=== PATIENT | female | born 1945 | race Caucasian/White ===

== ENCOUNTER 2023-02-05 13:35 | Outpatient (OUT) | payer MEDICARE, OTHER, SELFPAY ==
[2023-02-05 14:09] LABS: Basophils Absolute Auto 0.1 10^3/uL (0.0-0.1); Basophils Percent Auto 0.5 % (0.2-2.0); Eosinophils Absolute Auto 0.2 10^3/uL (0.0-0.7); Eosinophils Percent Auto 2.2 % (0.9-7.0); Hematocrit 38.4 % (36.0-48.0); Hemoglobin 12.9 g/dL (12.0-16.0); Immature Granulocytes Abs Auto 0.04 10^3/uL (0.00-0.03); Immature Granulocytes Pct Auto 0.4 % (0.0-0.5); Lymphocytes Absolute Auto 1.6 10^3/uL (1.2-3.8); Lymphocytes Percent Auto 14.2 % (20.5-60.0); Mean Corpuscular HGB Conc 33.6 g/dL (29.9-35.2); Mean Corpuscular Hemoglobin 29.1 pg (26.7-34.0); Mean Corpuscular Volume 86.7 fL (81.0-99.0); Mean Platelet Volume 10.4 fL (9.5-13.5); Monocytes Absolute Auto 0.5 10^3/uL (0.3-0.8); Monocytes Percent Auto 4.7 % (1.7-12.0); Neutrophils Absolute Auto 8.6 10^3/uL (1.4-6.5); Platelet Count 245 10^3/uL (150-450); Red Blood Count 4.43 10^6/uL (4.20-5.40); Red Cell Distribution Width 14.4 % (11.0-15.0)
[2023-02-05 14:47] LABS: Alanine Aminotransferase 33 U/L (14-59); Albumin Level 3.9 g/dL (3.4-5.0); Alkaline Phosphatase 115 U/L (46-116); Anion Gap 11.5; Aspartate Amino Transferase 18 U/L (15-37); BUN Creatinine Ratio 19.3; Bilirubin Total 0.5 mg/dL (0.2-1.0); Calcium 12.6 mg/dL (8.5-10.1); Carbon Dioxide 31.3 mmol/L (21.0-32.0); Chloride 96 mmol/L (98-107); Estimated GFR (African America 38 (>=60); Estimated GFR (Non-African Ame 31 (>=60); Globulin 4.1 g/dL; Glucose 144 mg/dL (74-106); Potassium 3.8 mmol/L (3.5-5.1); Sodium 135 mmol/L (136-145)
[2023-02-05 14:51] LABS: Estimated Average Glucose 166 mg/dL; Glycohemoglobin A1C 7.4 % (4.5-6.2)
[2023-02-06 11:10] LABS: PTH, Intact 9 pg/mL (15-65)
== END 2023-02-05 13:36 | disposition home or self-care (01) ==
LOC: LAB 13:40
PROVIDERS: PCP Internal Medicine; Visit Provider Internal Medicine
DX: E11.22 Type 2 diabetes mellitus with diabetic chronic kidney disease (principal); E83.52 Hypercalcemia; D72.829 Elevated white blood cell count, unspecified; N18.9 Chronic kidney disease, unspecified
CPT/HCPCS: 36415; 80053; 83036; 83970; 85025

== ENCOUNTER 2023-06-20 13:20 | Outpatient (OUT) | payer MEDICARE, OTHER, SELFPAY ==
[2023-06-20 13:56] LABS: Basophils Absolute Auto 0.1 10^3/uL (0.0-0.1); Basophils Percent Auto 0.6 % (0.2-2.0); Eosinophils Absolute Auto 0.2 10^3/uL (0.0-0.7); Eosinophils Percent Auto 2.7 % (0.9-7.0); Hematocrit 40.5 % (36.0-48.0); Hemoglobin 12.6 g/dL (12.0-16.0); Immature Granulocytes Abs Auto 0.02 10^3/uL (0.00-0.03); Immature Granulocytes Pct Auto 0.2 % (0.0-0.5); Lymphocytes Absolute Auto 1.6 10^3/uL (1.2-3.8); Lymphocytes Percent Auto 18.1 % (20.5-60.0); Mean Corpuscular HGB Conc 31.1 g/dL (29.9-35.2); Mean Corpuscular Hemoglobin 28.2 pg (26.7-34.0); Mean Corpuscular Volume 90.6 fL (81.0-99.0); Mean Platelet Volume 10.4 fL (9.5-13.5); Monocytes Absolute Auto 0.5 10^3/uL (0.3-0.8); Monocytes Percent Auto 5.5 % (1.7-12.0); Neutrophils Absolute Auto 6.5 10^3/uL (1.4-6.5); Neutrophils Percent Auto 72.9 % (43.0-75.0); Platelet Count 262 10^3/uL (150-450); Red Blood Count 4.47 10^6/uL (4.20-5.40); Red Cell Distribution Width 14.4 % (11.0-15.0); White Blood Count 8.9 10^3/uL (4.0-11.0)
[2023-06-20 14:08] LABS: Estimated Average Glucose 169 mg/dL; Glycohemoglobin A1C 7.5 % (4.5-6.2)
[2023-06-20 14:09] LABS: Alanine Aminotransferase 29 U/L (14-59); Albumin Globulin Ratio 0.8; Albumin Level 3.5 g/dL (3.4-5.0); Alkaline Phosphatase 124 U/L (46-116); Anion Gap 14.3; Aspartate Amino Transferase 16 U/L (15-37); BUN Creatinine Ratio 17.2; Bilirubin Total 0.5 mg/dL (0.2-1.0); Calcium 9.7 mg/dL (8.5-10.1); Carbon Dioxide 31.1 mmol/L (21.0-32.0); Chloride 101 mmol/L (98-107); Chol HDL Ratio 3.2; Cholesterol 155 mg/dL (<=200); Estimated GFR (African America 40 (>=60); Estimated GFR (Non-African Ame 33 (>=60); Globulin 4.2 g/dL; Glucose 108 mg/dL (74-106); HDL Cholesterol 48 mg/dL (40-60); Potassium 4.4 mmol/L (3.5-5.1); Sodium 142 mmol/L (136-145); Total Protein 7.7 g/dL (6.4-8.2); Triglycerides 173 mg/dL (<=150); VLDL CHOLESTEROL 34.6 mg/dL
[2023-06-20 14:21] LABS: Creatinine Urine Random 37.25 mg/dL (20.00-300.00)
== END 2023-06-20 13:21 | disposition home or self-care (01) ==
PROVIDERS: PCP Internal Medicine; Visit Provider Internal Medicine
DX: E11.22 Type 2 diabetes mellitus with diabetic chronic kidney disease (principal); N18.31 Chronic kidney disease, stage 3a; Z79.4 Long term (current) use of insulin; E78.49 Other hyperlipidemia; E03.8 Other specified hypothyroidism
CPT/HCPCS: 36415; 80053; 80061; 82570; 83036; 84443; 85025

== ENCOUNTER 2023-07-10 08:51 | Outpatient (OUT) | payer MEDICARE, OTHER, SELFPAY ==
--- NOTE | 2023-07-10 08:54 | MM_ITS ---
Patient Name: RICARDO GRIJALVA MR#: [id number] : 1945 Exam Date: 07/10/2023 Ordering Doctor: Shaikh Anni Oliveira . RADIOLOGY REPORT PROCEDURE: MM TOMOSYNTHESIS SCREENING BI COMPARISON: MG MAMM SCREEN MIRTA W CAD, 04/11/2020. MG MAMM SCREEN 3D MIRTA CAD, 05/04/2022. INDICATIONS: screening Calculator Name NCI Breast Cancer Risk Assessment Tool 5 Year Breast Cancer Risk 2.40% Lifetime Breast Cancer Risk 4.60% Personal Breast Cancer No Personal Ovarian Cancer No Treatments None Family Cancers None LOCATION: [facility] BREAST COMPOSITION: Scattered areas fibroglandular density. FINDINGS: DIAGNOSTIC CATEGORY 1--NEGATIVE. NO CHANGE FROM COMPARISON ASSESSMENT. Scattered benign-appearing calcifications are present. Scattered benign-appearing lymph nodes are present. . RIGHT BREAST: No significant suspicious finding. Irregular density in the right axillary tail is a skin lesion/small period LEFT BREAST: No significant suspicious finding. RECOMMENDATIONS: ROUTINE MAMMOGRAM AND CLINICAL EVALUATION IN 12 MONTHS. PLEASE NOTE: A NORMAL MAMMOGRAM DOES NOT EXCLUDE THE POSSIBILITY OF BREAST CANCER. A CLINICALLY SUSPICIOUS PALPABLE LUMP SHOULD BE BIOPSIED. Dictated by: Cameron Garcia MD on 07/10/2023 at 10:37 Approved by: Cameron Garcia MD on 07/10/2023 at 10:39
== END 2023-07-10 08:52 | disposition home or self-care (01) ==
LOC: MAMMO 08:51
PROVIDERS: PCP Internal Medicine; Visit Provider Internal Medicine
DX: Z12.31 Encounter for screening mammogram for malignant neoplasm of breast (principal)
CPT/HCPCS: 77063; 77067

== ENCOUNTER 2023-10-17 12:58 | Outpatient (OUT) | payer MEDICARE, OTHER, SELFPAY ==
--- OUTSIDE RECORDS SUMMARY | 2023-10-17 13:20 | XMS_ITS | CCD ---
Author Organization [facility] Care Team Providers Care Correction Officer Name Role Phone FAWWAD, SRIVASTAVA H Admitting Unavailable FAWWAD, SRIVASTAVA H Attending Unavailable FAWWAD, SRIVASTAVA H Primary Care Unavailable FAWWAD, SRIVASTAVA H Consulting Unavailable FAWWAD, SRIVASTAVA H Admitting Unavailable FAWWAD, SRIVASTAVA H Attending Unavailable FAWWAD, SRIVASTAVA H Primary Care Unavailable FAWWAD, SRIVASTAVA H Consulting Unavailable FAWWAD, SRIVASTAVA H Admitting Unavailable FAWWAD, SRIVASTAVA H Attending Unavailable FAWWAD, SRIVASTAVA H Primary Care Unavailable DR RENO MUHAMMAD V Consulting Unavailable FAWWAD, SRIVASTAVA H Consulting Unavailable FAWWAD, SRIVASTAVA H Admitting Unavailable FAWWAD, SRIVASTAVA H Attending Unavailable FAWWAD, SRIVASTAVA H Primary Care Unavailable FAWWAD, SRIVASTAVA H Consulting Unavailable FAWWAD, SRIVASTAVA Attending Unavailable FAWWAD, SRIVASTAVA Attending Unavailable Problems Active Problems Problem Classification Problem Date Documented Da te Episodic/Chronic Diabetes mellitus with complications (4 sources) Type 2 diabetes mellitus with diabetic chronic kidney disease; Translations: [TYPE 2 DM W/DIABETIC CKD] Onset: 11-05-2022 Chronic Diabetes mellitus without complication (5 sources) Type 2 diabetes mellitus without complications; Translations: [TYPE 2 DM WITHOUT COMPLICATIONS] Onset: 01-01-2022 Chronic Disorders of lipid metabolism (5 sources) Hyperlipidemia, unspecified; Translations: [HYPERLIPIDEMIA UNSPECIFIED] Onset: 05-04-2022 Chronic Essential hypertension (1 source) Essential (primary) hypertension; Translations: [ESSENTIAL PRIMARY HYPERTENSION] Onset: 05-06-2022 Chronic Hypertension with complications and secondary hypertension (1 source) Hypertensive chronic kidney disease with stage 1 through stage 4 chronic kidney disease, or unspecified chronic kidney disease; Translations: [HTN CKD W/STAGE 1-4 CKD/UNS CKD] Onset: 11-09-2022 Chronic Thyroid disorders (1 source) Hypothyroidism, unspecified; Translations: [HYPOTHYROIDISM UNSPECIFIED] Onset: 11-09-2022 Chronic Unclassified (1 source) CHRN KIDNEY DISEASE STG 3 UNSP; Translations: [CHRN KIDNEY DISEASE STG 3 UNSP] Onset: 11-09-2022 Past or Other Problems Problem Classification Problem Date Documented Da te Episodic/Chronic Other screening for suspected conditions (not mental disorders or infectious disease) (1 source) Encounter for screening mammogram for malignant neoplasm of breast; Translations: [ENC SCR MAMMO MALIG NEOPLASM BREAST] Onset: 05-06-2022 Episodic Results Test Name Value Interpretation Reference Range Facil ity CBC AUTO DIFFon 11-05-2022 BASO # 0.1 103/ul Normal 0.0-0.1 [facility] Comment on above: Performed By: #### A 1C #### [facility] [address] [place] [address] Dr. Ed Carbajal Basophils/100 WBC (Bld) 0.7 % Normal 0.2-2.0 [facility] Comment on above: Performed By: #### A 1C #### [facility] [address] [address] [address] Ed Carbajal EO # 0.1 103/ul Normal 0.0-0.7 [facility] Comment on above: Performed By: #### A 1C #### [facility] [address] [address] [address] Ed Carbajal Eosinophils/100 WBC (Bld) 1.1 % Normal 0.9-7.0 [facility] Comment on above: Performed By: #### A 1C #### [facility] [address] [address] [address] Ed Carbajal Erythrocyte distribution width (RBC) [Ratio] 14.6 % Normal 11.0-15.0 [facility] Comment on above: Performed By: #### A 1C #### [facility] [address] [address] [address] Ed Carbajal Hematocrit (Bld) [Volume fraction] 39.4 % Normal 36.0-48.0 [facility] Comment on above: Performed By: #### A 1C #### [facility] [address] [address] [address] Ed Carbajal Hemoglobin (Bld) [Mass/Vol] 12.7 g/dL Normal 12.0-16.0 [facility] Comment on above: Performed By: #### A 1C #### [facility] [address] [address] [address] Ed Carbajal IG # 0.07 10e3/ul Critically high 0.00-0.03 [facility] Comment on above: Performed By: #### A 1C #### [facility] [address] [address] [address] Ed Carbajal IG % 0.6 % Critically high 0.0-0.5 [facility] Comment on above: Performed By: #### A 1C #### [facility] [address] [address] [address] Ed Carbajal LYMPH # 1.8 103/ul Normal 1.2-3.8 [facility] Comment on above: Performed By: #### A 1C #### [facility] [address] [address] [address] Ed Carbajal Lymphocytes/100 WBC (Bld) 14.4 % Critically low 20.5-60.0 [facility] Comment on above: Performed By: #### A 1C #### [facility] [address] [address] [address] Ed Carbajal MANUAL DIFF REQ NO Normal [facility] Comment on above: Performed By: #### A 1C #### [facility] [address] [address] [address] Ed Carbajal MCH (RBC) [Entitic mass] 29.0 pg Normal 26.7-34.0 [facility] Comment on above: Performed By: #### A 1C #### [facility] [address] [address] [address] Ed Carbajal MCHC (RBC) [Mass/Vol] 32.2 g/dL Normal 29.9-35.2 [facility] Comment on above: Performed By: #### A 1C #### [facility] [address] [address] [address] Ed Carbajal MCV (RBC) [Entitic vol] 90.0 fL Normal 81.0-99.0 [facility] Comment on above: Performed By: #### A 1C #### [facility] [address] [address] [address] Ed Carbajal MONO # 0.6 103/ul Normal 0.3-0.8 [facility] Comment on above: Performed By: #### A 1C #### [facility] [address] [address] [address] Ed Carbajal Monocytes/100 WBC (Bld) 4.7 % Normal 1.7-12.0 [facility] Comment on above: Performed By: #### A 1C #### [facility] [address] [place] [address] Dr. Ed Carbajal NEUT # 9.6 103/ul Critically high 1.4-6.5 [facility] Comment on above: Performed By: #### A 1C #### [facility] [address] [place] [address] Dr. Ed Carbajal Neutrophils/100 WBC (Bld) 78.5 % Critically high 43.0-75.0 [facility] Comment on above: Performed By: #### A 1C #### [facility] [address] [place] [address] Dr. Ed Carbajal Platelet mean volume (Bld) [Entitic vol] 10.3 fL Normal 9.5-13.5 [facility] Comment on above: Performed By: #### A 1C #### [facility] [address] [place] [address] Dr. Ed Carbajal PLT 264 103/ul Normal 150-450 [facility] Comment on above: Performed By: #### A 1C #### [facility] [address] [address] [address] Ed Carbajal RBC 4.38 106/ul Normal 4.20-5.40 [facility] Comment on above: Performed By: #### A 1C #### [facility] [address] [address] [address] Ed Carbajal WBC 12.2 103/ul Critically high 4.0-11.0 [facility] Comment on above: Performed By: #### A 1C #### [facility] [address] [place] [address] Dr. Ed Carbajal GLYCOHEMOGLOBIN A1Con 2022 ADA RECOMMENDATION SEE BELOW Normal [facility] Comment on above: Result Comment: ADA RECOMMENDED LIMIT 4.0 - 6.0 ADA THERAPEUTIC TARGET < 7.0 ACTION SUGGESTED > 7.0 Performed By: #### A 1C #### [facility] [address] [address] [address] Ed Carbajal Glucose [Mass/Vol] 186 mg/dL Normal [facility] Comment on above: Performed By: #### A 1C #### [facility] [address] [place] [address] Dr. Ed Carbajal HbA1c (Bld) [Mass fraction] 8.1 % Critically high 4.5-6.2 [facility] Comment on above: Performed By: #### A 1C #### [facility] [address] [place] [address] Dr. Ed Carbajal LIPID PROFILEon 11-05-2022 CHOL-HDL RATIO NORM SEE BELOW Normal [facility] Comment on above: Result Comment: 3.3 - 4.4 LOW RISK 4.4 - 7.1 AVERAGE RISK 7.1 - 11.0 MODERATE RISK >11.0 HIGH RISK Performed By: #### A 1C #### [facility] [address] [place] [address] Dr. Ed Carbajal Cholesterol [Mass/Vol] 186 mg/dL Normal <=200 [facility] Comment on above: Performed By: #### A 1C #### [facility] [address] [place] [address] Dr. Ed Carbajal Cholesterol in HDL [Mass/Vol] 45 mg/dL Normal 40-60 [facility] Comment on above: Performed By: #### A 1C #### [facility] [address] [place] [address] Dr. Ed Carbajal Cholesterol in LDL [Mass/Vol] 95.6 mg/dL Normal [facility] Comment on above: Performed By: #### A 1C #### [facility] [address] [address] [address] Ed Carbajal Cholesterol.total/Cho lesterol in HDL [Mass ratio] 4.1 {ratio} Normal [facility] Comment on above: Performed By: #### A 1C #### [facility] [address] [address] [address] Ed Carbajal HDL NORMAL > or = 60 mg/dl - LOW CARDIOVASCULAR RISK <40 mg/dl - HIGH CARDIOVASCULAR RISK Normal [facility] Comment on above: Performed By: #### A 1C #### [facility] [address] [address] [address] Ed Carbajal LDL CALC NORMAL SEE BELOW Normal [facility] Comment on above: Result Comment: <100 mg/dl OPTIMAL 100 - 129 mg/dl NEAR OR ABOVE OPTIMAL 130 - 159 mg/dl BORDERLINE HIGH 160 - 189 mg/dl HIGH >190 mg/dl VERY HIGH Performed By: #### A 1C #### [facility] [address] [address] [address] Ed Carbajal Triglyceride [Mass/Vol] 227 mg/dL Critically high <=150 [facility] Comment on above: Performed By: #### A 1C #### [facility] [address] [address] [address] Ed Carbajal VLDL CALC 45.4 mg/dL Normal [facility] Comment on above: Performed By: #### A 1C #### [facility] [address] [address] [address] Ed Carbajal PROF 14(COMP METB)on 023 Albumin [Mass/Vol] 3.7 g/dL Normal 3.4-5.[address] [facility] Comment on above: Performed By: #### A 1C #### [facility] [address] [address] [address] Ed Carbajal Albumin/Globulin [Mass ratio] 0.8 {ratio} Normal [facility] Comment on above: Performed By: #### A 1C #### [facility] [address] [address] [address] Ed Carbajal ALP [Catalytic activity/Vol] 126 U/L Critically high 46-116 [facility] Comment on above: Performed By: #### A 1C #### [facility] [address] [place] [address] Dr. Ed Carbajal ALT [Catalytic activity/Vol] 32 U/L Normal 14-59 [facility] Comment on above: Performed By: #### A 1C #### [facility] [address] [place] [address] Dr. Ed Carbajal Anion gap [Moles/Vol] 15.5 mmol/L Normal [facility] Comment on above: Performed By: #### A 1C #### [facility] [address] [place] [address] Dr. Ed Carbajal AST [Catalytic activity/Vol] 17 U/L Normal 15-37 [facility] Comment on above: Performed By: #### A 1C #### [facility] [address] [place] [address] Dr. Ed Carbajal Bilirubin [Mass/Vol] 0.4 mg/dL Normal 0.2-1.0 [facility] Comment on above: Performed By: #### A 1C #### [facility] [address] [place] [address] Dr. Ed Carbajal Calcium [Mass/Vol] 11.5 mg/dL Critically high 8.5-10.1 [facility] Comment on above: Performed By: #### A 1C #### [facility] [address] [place] [address] Dr. Ed Carbajal Chloride [Moles/Vol] 97 mmol/L Critically low 98-107 [facility] Comment on above: Performed By: #### A 1C #### [facility] [address] [place] [address] Dr. Ed Carbajal CO2 [Moles/Vol] 31.2 mmol/L Normal 21.0-32.0 [facility] Comment on above: Performed By: #### A 1C #### [facility] [address] [place] [address] Dr. Ed Carbajal Creatinine [Mass/Vol] 1.69 mg/dL Critically high 0.55-1.02 [facility] Comment on above: Performed By: #### A 1C #### [facility] [address] [address] [address] Ed Carbajal EGFR-AF BURMESE 36 mL/min/1.73m2 Critically low >=60 [facility] Comment on above: Performed By: #### A 1C #### [facility] [address] [address] [address] Ed Carbajal EGFR-NON AF BURMESE 29 mL/min/1.73m2 Critically low >=60 [facility] Comment on above: Performed By: #### A 1C #### [facility] [address] [place] [address] Dr. Ed Carbajal Globulin (S) [Mass/Vol] 4.4 g/dL Normal [facility] Comment on above: Performed By: #### A 1C #### [facility] [address] [place] [address] Dr. Ed Carbajal Glucose [Mass/Vol] 210 mg/dL Critically high 74-106 [facility] Comment on above: Performed By: #### A 1C #### [facility] [address] [place] [address] Dr. Ed Carbajal Potassium [Moles/Vol] 3.7 mmol/L Normal 3.5-5.1 [facility] Comment on above: Performed By: #### A 1C #### [facility] [address] [address] [address] Ed Carbajal Protein [Mass/Vol] 8.1 g/dL Normal 6.4-8.[address] [facility] Comment on above: Performed By: #### A 1C #### [facility] [address] [place] [address] Dr. Ed Carbajal Sodium [Moles/Vol] 140 mmol/L Normal 136-145 [facility] Comment on above: Performed By: #### A 1C #### [facility] [address] [place] [address] Dr. Ed Carbajal Urea nitrogen [Mass/Vol] 36.0 mg/dL Critically high 7.0-18.0 [facility] Comment on above: Performed By: #### A 1C #### [facility] [address] [place] [address] Dr. Ed Carbajal Urea nitrogen/Creatinine [Mass ratio] 21.3 mg/mg Normal [facility] Comment on above: Performed By: #### A 1C #### [facility] [address] [place] [address] Dr. Ed Carbajal TSHon 11-05-2022 TSH 2.517 uIU/mL Normal 0.358-3.740 [facility] Comment on above: Performed By: #### A 1C #### [facility] [address] [place] [address] Dr. Ed Carbajal URINE T PROTEIN CREAT RATIOo n 11-05-2022 Protein (U) [Mass/Vol] 12.8 mg/dL Critically high <=12.0 [facility] Comment on above: Performed By: #### A 1C #### [facility] [address] [place] [address] Dr. Ed Carbajal UR PROT CREAT RAT 0.35 Normal [facility] Comment on above: Performed By: #### A 1C #### [facility] [address] [place] [address] Dr. Ed Carbajal URINE CREAT 36.93 mg/dL Normal 20.00-300.00 [facility] Comment on above: Performed By: #### A 1C #### [facility] [address] [place] [address] Dr. Ed Carbajal GLYCOHEMOGLOBIN A1Con 2022 ADA RECOMMENDATION SEE BELOW Normal [facility] Comment on above: Result Comment: ADA RECOMMENDED LIMIT 4.0 - 6.0 ADA THERAPEUTIC TARGET < 7.0 ACTION SUGGESTED > 7.0 Performed By: #### A 1C #### [facility] [address] [place] [address] Dr. Ed Carbajal Glucose [Mass/Vol] 154 mg/dL Normal [facility] Comment on above: Performed By: #### A 1C #### [facility] [address] [address] [address] Ed Carbajal HbA1c (Bld) [Mass fraction] 7.0 % Critically high 4.5-6.2 [facility] Comment on above: Performed By: #### A 1C #### [facility] [address] [address] [address] Ed Carbajal PROF CHEM 8 (BAS METB)on Anion gap [Moles/Vol] 13.8 mmol/L Normal [facility] Comment on above: Performed By: #### A 1C #### [facility] [address] [address] [address] Ed Carbajal Calcium [Mass/Vol] 10.4 mg/dL Critically high 8.5-10.1 [facility] Comment on above: Performed By: #### A 1C #### [facility] [address] [address] [address] Ed Carbajal Chloride [Moles/Vol] 97 mmol/L Critically low 98-107 [facility] Comment on above: Performed By: #### A 1C #### [facility] [address] [address] [address] Ed Carbajal CO2 [Moles/Vol] 28.0 mmol/L Normal 21.0-32.0 [facility] Comment on above: Performed By: #### A 1C #### [facility] [address] [address] [address] Ed Carbajal Creatinine [Mass/Vol] 1.32 mg/dL Critically high 0.55-1.02 [facility] Comment on above: Performed By: #### A 1C #### [facility] [address] [address] [address] Ed Carbajal EGFR-AF BURMESE 47 mL/min/1.73m2 Critically low >=60 [facility] Comment on above: Performed By: #### A 1C #### [facility] [address] [address] [address] Ed Carbajal EGFR-NON AF BURMESE 39 mL/min/1.73m2 Critically low >=60 [facility] Comment on above: Performed By: #### A 1C #### [facility] [address] [address] [address] Ed Carbajal Glucose [Mass/Vol] 184 mg/dL Critically high 74-106 [facility] Comment on above: Performed By: #### A 1C #### [facility] [address] [address] [address] Ed Carbajal Potassium [Moles/Vol] 3.8 mmol/L Normal 3.5-5.1 [facility] Comment on above: Performed By: #### A 1C #### [facility] [address] [address] [address] Ed Carbajal Sodium [Moles/Vol] 135 mmol/L Critically low 136-145 [facility] Comment on above: Performed By: #### A 1C #### [facility] [address] [place] [address] Dr. Ed Carbajal Urea nitrogen [Mass/Vol] 27.0 mg/dL Critically high 7.0-18.0 [facility] Comment on above: Performed By: #### A 1C #### [facility] [address] [address] [address] Ed Carbajal Urea nitrogen/Creatinine [Mass ratio] 20.5 mg/mg Normal [facility] Comment on above: Performed By: #### A 1C #### [facility] [address] [place] [address] Dr. Ed Carbajal URINE T PROTEIN CREAT RATIOo n 08-07-2022 Protein (U) [Mass/Vol] 5.5 mg/dL Normal <=12.0 [facility] Comment on above: Performed By: #### U RTPCR #### [facility] [address] [address] [address] Ed Carbajal UR PROT CREAT RAT 0.32 Normal [facility] Comment on above: Performed By: #### U RTPCR #### [facility] [address] [address] [address] Ed Carbajal URINE CREAT 17.25 mg/dL Critically low 20.00-300.00 [facility] Comment on above: Performed By: #### U RTPCR #### [facility] [address] [address] [address] Ed Carbajal CBC AUTO DIFFon 05-04-2022 BASO # 0.1 103/ul Normal 0.0-0.1 [facility] Comment on above: Performed By: #### C BC #### [facility] [address] [address] [address] Ed Carbajal Basophils/100 WBC (Bld) 0.9 % Normal 0.2-2.0 [facility] Comment on above: Performed By: #### C BC #### [facility] [address] [place] [address] Dr. Ed Carbajal EO # 0.4 103/ul Normal 0.0-0.7 [facility] Comment on above: Performed By: #### C BC #### [facility] [address] [place] [address] Dr. Ed Carbajal Eosinophils/100 WBC (Bld) 3.7 % Normal 0.9-7.0 [facility] Comment on above: Performed By: #### C BC #### [facility] [address] [place] [address] Dr. Ed Carbajal Erythrocyte distribution width (RBC) [Ratio] 14.6 % Normal 11.0-15.0 [facility] Comment on above: Performed By: #### C BC #### [facility] [address] [place] [address] Dr. Ed Carbajal Hematocrit (Bld) [Volume fraction] 40.1 % Normal 36.0-48.0 [facility] Comment on above: Performed By: #### C BC #### [facility] [address] [place] [address] Dr. Ed Carbajal Hemoglobin (Bld) [Mass/Vol] 12.8 g/dL Normal 12.0-16.0 [facility] Comment on above: Performed By: #### C BC #### [facility] [address] [place] [address] Dr. Ed Carbajal IG # 0.03 10e3/ul Normal 0.00-0.03 [facility] Comment on above: Performed By: #### C BC #### [facility] [address] [place] [address] Dr. Ed Carbajal IG % 0.3 % Normal 0.0-0.5 [facility] Comment on above: Performed By: #### C BC #### [facility] [address] [place] [address] Dr. Ed Carbajal LYMPH # 1.8 103/ul Normal 1.2-3.8 [facility] Comment on above: Performed By: #### C BC #### [facility] [address] [place] [address] Dr. Ed Carbajal Lymphocytes/100 WBC (Bld) 18.0 % Critically low 20.5-60.0 [facility] Comment on above: Performed By: #### C BC #### [facility] [address] [place] [address] Dr. Ed Carbajal MANUAL DIFF REQ NO Normal [facility] Comment on above: Performed By: #### C BC #### [facility] [address] [place] [address] Dr. Ed Carbajal MCH (RBC) [Entitic mass] 28.0 pg Normal 26.7-34.0 [facility] Comment on above: Performed By: #### C BC #### [facility] [address] [place] [address] Dr. Ed Carbajal MCHC (RBC) [Mass/Vol] 31.9 g/dL Normal 29.9-35.2 [facility] Comment on above: Performed By: #### C BC #### [facility] [address] [place] [address] Dr. Ed Carbajal MCV (RBC) [Entitic vol] 87.7 fL Normal 81.0-99.0 [facility] Comment on above: Performed By: #### C BC #### [facility] [address] [place] [address] Dr. Ed Carbajal MONO # 0.6 103/ul Normal 0.3-0.8 [facility] Comment on above: Performed By: #### C BC #### [facility] [address] [address] [address] Ed Carbajal Monocytes/100 WBC (Bld) 6.0 % Normal 1.7-12.0 [facility] Comment on above: Performed By: #### C BC #### [facility] [address] [address] [address] Ed Carbajal NEUT # 7.0 103/ul Critically high 1.4-6.5 [facility] Comment on above: Performed By: #### C BC #### [facility] [address] [place] [address] Dr. Ed Carbajal Neutrophils/100 WBC (Bld) 71.1 % Normal 43.0-75.0 [facility] Comment on above: Performed By: #### C BC #### [facility] [address] [place] [address] Dr. Ed Carbajal Platelet mean volume (Bld) [Entitic vol] 10.8 fL Normal 9.5-13.5 [facility] Comment on above: Performed By: #### C BC #### [facility] [address] [place] [address] Dr. Ed Carbajal PLT 272 103/ul Normal 150-450 [facility] Comment on above: Performed By: #### C BC #### [facility] [address] [place] [address] Dr. Ed Carbajal RBC 4.57 106/ul Normal 4.20-5.40 [facility] Comment on above: Performed By: #### C BC #### [facility] [address] [place] [address] Dr. Ed Carbajal WBC 9.8 103/ul Normal 4.0-11.0 [facility] Comment on above: Performed By: #### C BC #### [facility] [address] [place] [address] Dr. Ed Carbajal GLYCOHEMOGLOBIN A1Con 2021 ADA RECOMMENDATION SEE BELOW Normal [facility] Comment on above: Result Comment: ADA RECOMMENDED LIMIT 4.0 - 6.0 ADA THERAPEUTIC TARGET < 7.0 ACTION SUGGESTED > 7.0 Performed By: #### A 1C #### [facility] [address] [address] [address] Ed Carbajal Glucose [Mass/Vol] 154 mg/dL Normal [facility] Comment on above: Performed By: #### A 1C #### [facility] [address] [address] [address] Ed Carbajal HbA1c (Bld) [Mass fraction] 7.0 % Critically high 4.5-6.2 [facility] Comment on above: Performed By: #### A 1C #### [facility] [address] [address] [address] Ed Carbajal LIPID PROFILEon 05-04-2022 CHOL-HDL RATIO NORM SEE BELOW Normal [facility] Comment on above: Result Comment: 3.3 - 4.4 LOW RISK 4.4 - 7.1 AVERAGE RISK 7.1 - 11.0 MODERATE RISK >11.0 HIGH RISK Performed By: #### C MP, TSH, LIPID #### [facility] [address] [place] [address] Dr. Ed Carbajal Cholesterol [Mass/Vol] 143 mg/dL Normal <=200 [facility] Comment on above: Performed By: #### C MP, TSH, LIPID #### [facility] [address] [place] [address] Dr. Ed Carbajal Cholesterol in HDL [Mass/Vol] 45 mg/dL Normal 40-60 [facility] Comment on above: Performed By: #### C MP, TSH, LIPID #### [facility] [address] [place] [address] Dr. Ed Carbajal Cholesterol in LDL [Mass/Vol] 65.4 mg/dL Normal [facility] Comment on above: Performed By: #### C MP, TSH, LIPID #### [facility] [address] [place] [address] Dr. Ed Carbajal Cholesterol.total/Cho lesterol in HDL [Mass ratio] 3.2 {ratio} Normal [facility] Comment on above: Performed By: #### C MP, TSH, LIPID #### [facility] [address] [address] [address] Ed Carbajal HDL NORMAL > or = 60 mg/dl - LOW CARDIOVASCULAR RISK <40 mg/dl - HIGH CARDIOVASCULAR RISK Normal [facility] Comment on above: Performed By: #### C MP, TSH, LIPID #### [facility] [address] [place], [place] [address] Dr. Ed Carbajal LDL CALC NORMAL SEE BELOW Normal [facility] Comment on above: Result Comment: <100 mg/dl OPTIMAL 100 - 129 mg/dl NEAR OR ABOVE OPTIMAL 130 - 159 mg/dl BORDERLINE HIGH 160 - 189 mg/dl HIGH >190 mg/dl VERY HIGH Performed By: #### C MP, TSH, LIPID #### [facility] [address] [address] [address] Ed Carbajal Triglyceride [Mass/Vol] 163 mg/dL Critically high <=150 [facility] Comment on above: Performed By: #### C MP, TSH, LIPID #### [facility] [address] [address] [address] Ed Carbajal VLDL CALC 32.6 mg/dL Normal [facility] Comment on above: Performed By: #### C MP, TSH, LIPID #### [facility] [address] [address] [address] Ed Carbajal MG MAMM SCREEN 3D MIRTA CADon 05-04-2022 MG MAMM SCREEN 3D MIRTA CAD Patient: IRCARDO GRIJALVA Exam Date: 05/04/2022 : 1945 Gender:F Ordering : SHAIKH Anni DIAMOND . Admission #: [id number] Family : Order #: [id number] CLICK HERE TO VIEW EXAM RADIOLOGY REPORT PROCEDURE: MAMMOGRAM SCREENING 3D BILATERAL CAD COMPARISON: MG MAMM SCREEN MIRTA W CAD, 12/08/2018. MG MAMM SCREEN MIRTA W CAD, 04/11/2020. INDICATIONS: Screening mammography Calculator Name NCI Breast Cancer Risk Assessment Tool 5 Year Breast Cancer Risk 2.40% Lifetime Breast Cancer Risk 5.30% Personal Breast Cancer No Personal Ovarian Cancer No Treatments None Family Cancers None LOCATION: [facility] BREAST COMPOSITION: Scattered areas fibroglandular density. FINDINGS: DIAGNOSTIC CATEGORY 1--NEGATIVE. NO CHANGE FROM COMPARISON ASSESSMENT. Scattered benign-appearing calcifications are present. Scattered benign-appearing lymph nodes are present. RIGHT BREAST: No significant suspicious finding. LEFT BREAST: No significant suspicious finding. RECOMMENDATIONS: ROUTINE MAMMOGRAM AND CLINICAL EVALUATION IN 12 MONTHS. PLEASE NOTE: A NORMAL MAMMOGRAM DOES NOT EXCLUDE THE POSSIBILITY OF BREAST CANCER. A CLINICALLY SUSPICIOUS PALPABLE LUMP SHOULD BE BIOPSIED. Dictated by: Reno Muhammad MD on 05/04/2022 at 09:32 Approved by: Reno Muhammad MD on 05/04/2022 at 09:34 Normal [facility] PROF 14(COMP METB)on 05-04- 022 Albumin [Mass/Vol] 3.6 g/dL Normal 3.4-5.0 [facility] Comment on above: Performed By: #### C MP, TSH, LIPID #### [facility] [address] [place] [address] Dr. Ed Carbajal Albumin/Globulin [Mass ratio] 0.9 {ratio} Normal [facility] Comment on above: Performed By: #### C MP, TSH, LIPID #### [facility] [address] [place] [address] Dr. Ed Carbajal ALP [Catalytic activity/Vol] 102 U/L Normal 46-116 [facility] Comment on above: Performed By: #### C MP, TSH, LIPID #### [facility] [address] [place] [address] Dr. Ed Carbajal ALT [Catalytic activity/Vol] 30 U/L Normal 14-59 [facility] Comment on above: Performed By: #### C MP, TSH, LIPID #### [facility] [address] [place] [address] Dr. Ed Carbajal Anion gap [Moles/Vol] 11.1 mmol/L Normal [facility] Comment on above: Performed By: #### C MP, TSH, LIPID #### [facility] [address] [place] [address] Dr. Ed Carbajal AST [Catalytic activity/Vol] 17 U/L Normal 15-37 [facility] Comment on above: Performed By: #### C MP, TSH, LIPID #### [facility] [address] [place] [address] Dr. Ed Carbajal Bilirubin [Mass/Vol] 0.5 mg/dL Normal 0.2-1.0 [facility] Comment on above: Performed By: #### C MP, TSH, LIPID #### [facility] [address] [place] [address] Dr. Ed Carbajal Calcium [Mass/Vol] 10.4 mg/dL Critically high 8.5-10.1 [facility] Comment on above: Performed By: #### C MP, TSH, LIPID #### [facility] [address] [place] [address] Dr. Ed Carbajal Chloride [Moles/Vol] 99 mmol/L Normal 98-107 [facility] Comment on above: Performed By: #### C MP, TSH, LIPID #### [facility] [address] [place] [address] Dr. Ed Carbajal CO2 [Moles/Vol] 32.4 mmol/L Critically high 21.0-32.0 [facility] Comment on above: Performed By: #### C MP, TSH, LIPID #### [facility] [address] [place] [address] Dr. dE Carbajal Creatinine [Mass/Vol] 1.61 mg/dL Critically high 0.55-1.02 [facility] Comment on above: Performed By: #### C MP, TSH, LIPID #### [facility] [address] [place] [address] Dr. Ed Carbajal EGFR-AF BURMESE 38 mL/min/1.73m2 Critically low >=60 [facility] Comment on above: Performed By: #### C MP, TSH, LIPID #### [facility] [address] [place] [address] Dr. Ed Carbajal EGFR-NON AF BURMESE 31 mL/min/1.73m2 Critically low >=60 [facility] Comment on above: Performed By: #### C MP, TSH, LIPID #### [facility] [address] [place] [address] Dr. Ed Carbajal Globulin (S) [Mass/Vol] 4.2 g/dL Normal [facility] Comment on above: Performed By: #### C MP, TSH, LIPID #### [facility] [address] [address] [address] Ed Carbajal Glucose [Mass/Vol] 130 mg/dL Critically high 74-106 [facility] Comment on above: Performed By: #### C MP, TSH, LIPID #### [facility] [address] [address] [address] Ed Carbajal Potassium [Moles/Vol] 3.5 mmol/L Normal 3.5-5.1 [facility] Comment on above: Performed By: #### C MP, TSH, LIPID #### [facility] [address] [place] [address] Dr. Ed Carbajal Protein [Mass/Vol] 7.8 g/dL Normal 6.4-8.2 [facility] Comment on above: Performed By: #### C MP, TSH, LIPID #### [facility] [address] [place] [address] Dr. Ed Carbajal Sodium [Moles/Vol] 139 mmol/L Normal 136-145 [facility] Comment on above: Performed By: #### C MP, TSH, LIPID #### [facility] [address] [address] [address] Ed Carbajal Urea nitrogen [Mass/Vol] 39.0 mg/dL Critically high 7.0-18.0 [facility] Comment on above: Performed By: #### C MP, TSH, LIPID #### [facility] [address] [place] [address] Dr. Ed Carbajal Urea nitrogen/Creatinine [Mass ratio] 24.2 mg/mg Normal [facility] Comment on above: Performed By: #### C MP, TSH, LIPID #### [facility] [address] [place] [address] Dr. Ed Carbajal TSHon 05-04-2022 TSH 3.236 uIU/mL Normal 0.358-3.740 [facility] Comment on above: Performed By: #### C MP, TSH, LIPID #### [facility] [address] [place] [address] Dr. Ed Carbajal GLYCOHEMOGLOBIN A1Con 2021 ADA RECOMMENDATION SEE BELOW Normal [facility] Comment on above: Result Comment: ADA RECOMMENDED LIMIT 4.0 - 6.0 ADA THERAPEUTIC TARGET < 7.0 ACTION SUGGESTED > 7.0 Performed By: #### A 1C #### [facility] [address], [place] [address] Dr. Ed Carbajal Glucose [Mass/Vol] 160 mg/dL Normal [facility] Comment on above: Performed By: #### A 1C #### [facility] [address], [place] [address] Dr. Ed Carbajal HbA1c (Bld) [Mass fraction] 7.2 % Critically high 4.5-6.2 [facility] Comment on above: Performed By: #### A 1C #### [facility] [address] [address] [address] Ed Carbajal Encounters Encounter Date Encounter Type Care Provider Facility Start: 09-24-2023 End: 09-24-2023 ambulatory SRIVASTAVA FAWWAD Not Available Start: 06-18-2023 End: 06-18-2023 ambulatory SRIVASTAVA FAWWAD Not Available Start: 11-05-2022 End: 11-06-2022 ambulatory SRIVASTAVA H FAWWAD Facility:[facility] Start: 08-07-2022 End: 08-08-2022 ambulatory SRIVASTAVA H FAWWAD Facility:[facility] Start: 05-04-2022 End: 05-05-2022 ambulatory SRIVASTAVA H FAWWAD Facility:[facility] Start: 01-01-2022 End: 01-02-2022 ambulatory SRIVASTAVA H FAWWAD Facility:[facility] Payers Date Payer Category Payer Medicare [id number] 1958 Unknown [id number] 1945 Unknown [id number] 2.16.84 [id number] 1945 Unknown [id number] 2.16.84 [id number] 1945 Unknown [id number] 2.16.84 [id number] 1945 Unknown [id number] 2.16.84 [id number] 1945 Unknown [id number] 2.16.84 [id number] 1945 Unknown [id number] Summary Purpose Family History No Family History Records FoundNo Family History Records Found Advance Directives No Advanced Directives Records FoundNo Advanced Directives Records Found Additional Source Comments INFORMATION SOURCE (unrecogn ized section and content) DATE CREATED AUTHOR 11/10/2022 [facility] DATE CREATED AUTHOR AUTHOR'S KARO SALAS 09/25/2023 [facility] FOR RECORDS PERTAINING TO PATIENTS WHO ARE OR HAVE BEEN ENROLLED IN A CHEMICAL DEPENDENCY/SUBSTANCEABUSE PROGRAM, SOME INFORMATION MAY BE OMITTED. This clinical summary was aggregated from multiple sources. Caution should be exercised in using it in the provision of clinical care. This summary normalizes information from multiple sources, and as a consequence, information in this document may materially change the coding, format and clinical context of patient data. In addition, data may be omitted in some cases. CLINICAL DECISIONS SHOULD BE BASED ON THE PRIMARY CLINICAL RECORDS. [facility] [employer] provides no warranty or guarantee of the accuracy or completeness of information in this document.
[2023-10-17 13:38] LABS: Basophils Absolute Auto 0.1 10^3/uL (0.0-0.1); Eosinophils Absolute Auto 0.5 10^3/uL (0.0-0.7); Eosinophils Percent Auto 6.2 % (0.9-7.0); Hematocrit 40.4 % (36.0-48.0); Hemoglobin 12.7 g/dL (12.0-16.0); Immature Granulocytes Abs Auto 0.02 10^3/uL (0.00-0.03); Immature Granulocytes Pct Auto 0.2 % (0.0-0.5); Lymphocytes Percent Auto 24.9 % (20.5-60.0); Mean Corpuscular HGB Conc 31.4 g/dL (29.9-35.2); Mean Corpuscular Hemoglobin 28.1 pg (26.7-34.0); Mean Corpuscular Volume 89.4 fL (81.0-99.0); Mean Platelet Volume 10.7 fL (9.5-13.5); Monocytes Absolute Auto 0.6 10^3/uL (0.3-0.8); Neutrophils Absolute Auto 4.9 10^3/uL (1.4-6.5); Neutrophils Percent Auto 60.7 % (43.0-75.0); Platelet Count 241 10^3/uL (150-450); Red Blood Count 4.52 10^6/uL (4.20-5.40); Red Cell Distribution Width 14.9 % (11.0-15.0); White Blood Count 8.1 10^3/uL (4.0-11.0)
[2023-10-17 13:57] LABS: Alanine Aminotransferase 29 U/L (14-59); Albumin Globulin Ratio 0.8; Albumin Level 3.5 g/dL (3.4-5.0); Alkaline Phosphatase 129 U/L (46-116); Anion Gap 13.1; Aspartate Amino Transferase 13 U/L (15-37); BUN Creatinine Ratio 16.6; Bilirubin Total 0.4 mg/dL (0.2-1.0); Calcium 10.3 mg/dL (8.5-10.1); Carbon Dioxide 29.3 mmol/L (21.0-32.0); Chloride 103 mmol/L (98-107); Estimated GFR (African America 39 (>=60); Estimated GFR (Non-African Ame 32 (>=60); Globulin 4.2 g/dL; Glucose 77 mg/dL (74-106); Potassium 4.4 mmol/L (3.5-5.1); Sodium 141 mmol/L (136-145); TSH W/ REFLEX FT4 1.663 uIU/mL (0.358-3.740); Total Protein 7.7 g/dL (6.4-8.2)
[2023-10-17 14:41] LABS: Estimated Average Glucose 148 mg/dL; Glycohemoglobin A1C 6.8 % (4.5-6.2)
== END 2023-10-17 12:59 | disposition home or self-care (01) ==
LOC: LAB 13:00
PROVIDERS: PCP Internal Medicine; Visit Provider Internal Medicine
DX: E03.8 Other specified hypothyroidism (principal); E11.22 Type 2 diabetes mellitus with diabetic chronic kidney disease; N18.31 Chronic kidney disease, stage 3a; Z79.4 Long term (current) use of insulin; I12.9 Hypertensive chronic kidney disease with stage 1 through stage 4 chronic kidney disease, or unspecified chronic kidney disease
CPT/HCPCS: 36415; 80053; 83036; 84443; 85025

== ENCOUNTER 2024-04-07 14:24 | Outpatient (OUT) | payer MEDICARE, OTHER, SELFPAY ==
--- OUTSIDE RECORDS SUMMARY | 2024-04-07 14:35 | XMS_ITS | CCD ---
Author Organization [facility] Care Team Providers Care Helicopter Technician Name Role Phone FAWWAD, SRIVASTAVA H Admitting [...] SRIVASTAVA Attending Unavailable FAWWAD, SRIVASTAVA Attending Unavailable FAWWAD, SRIVASTAVA Attending Unavailable FAWWAD, SRIVASTAVA [...] 11-05-2022 BASO # 0.1 103/ul Normal 0.0-0.1 [facility] Comment on above: Performed By: #### A 1C #### [facility] [address] [place] [address] Dr. Ed Carbajal Basophils/100 WBC (Bld) 0.7 % Normal 0.2-2.0 [facility] Comment on above: Performed By: #### A 1C #### [facility] [address] [place] [address] Dr. Ed Carbajal EO # 0.1 103/ul Normal 0.0-0.7 [facility] Comment on above: Performed By: #### A 1C #### [facility] [address] [address] [address] Ed Carbajal Eosinophils/100 WBC (Bld) 1.1 % Normal 0.9-7.0 [facility] Comment on above: Performed By: #### A 1C #### [facility] [address] [place] [address] Dr. Ed Carbajal Erythrocyte distribution width (RBC) [Ratio] 14.6 % Normal 11.0-15.0 [facility] Comment on above: Performed By: #### A 1C #### [facility] [address] [place] [address] Dr. Ed Carbajal Hematocrit (Bld) [Volume fraction] 39.4 % Normal 36.0-48.0 [facility] Comment on above: Performed By: #### A 1C #### [facility] [address] [address] [address] Ed Carbajal Hemoglobin (Bld) [Mass/Vol] 12.7 g/dL Normal 12.0-16.0 [facility] Comment on above: Performed By: #### A 1C #### [facility] [address] [address] [address] Ed Carbajal IG # 0.07 10e3/ul Critically high 0.00-0.03 [facility] Comment on above: Performed By: #### A 1C #### [facility] [address] [place] [address] Dr. Ed Carbajal IG % 0.6 % Critically high 0.0-0.5 [facility] Comment on above: Performed By: #### A 1C #### [facility] [address] [address] [address] Ed Carbajal LYMPH # 1.8 103/ul Normal 1.2-3.8 [facility] Comment on above: Performed By: #### A 1C #### [facility] [address] [place] [address] Dr. Ed Carbajal Lymphocytes/100 WBC (Bld) 14.4 % Critically low 20.5-60.0 [facility] Comment on above: Performed By: #### A 1C #### [facility] [address] [place] [address] Dr. Ed Carbajal MANUAL DIFF REQ NO Normal [facility] Comment on above: Performed By: #### A 1C #### [facility] [address] [place] [address] Dr. Ed Carbajal MCH (RBC) [Entitic mass] 29.0 pg Normal 26.7-34.0 [facility] Comment on above: Performed By: #### A 1C #### [facility] [address] [place] [address] Dr. Ed Carbajal MCHC (RBC) [Mass/Vol] 32.2 g/dL Normal 29.9-35.2 [facility] Comment on above: Performed By: #### A 1C #### [facility] [address] [place] [address] Dr. Ed Carbajal MCV (RBC) [Entitic vol] 90.0 fL Normal 81.0-99.0 [facility] Comment on above: Performed By: #### A 1C #### [facility] [address] [place] [address] Dr. Ed Carbajal MONO # 0.6 103/ul Normal 0.3-0.8 [facility] Comment on above: Performed By: #### A 1C #### [facility] [address] [place] [address] Dr. Ed Carbajal Monocytes/100 WBC (Bld) 4.7 % Normal 1.7-12.0 [facility] Comment on above: Performed By: #### A 1C #### [facility] [address] [place] [address] Dr. Ed Carbajal NEUT # 9.6 103/ul Critically high 1.4-6.5 [facility] Comment on above: Performed By: #### A 1C #### [facility] [address] [place] [address] Dr. Ed Carbajal Neutrophils/100 WBC (Bld) 78.5 % Critically high 43.0-75.0 [facility] Comment on above: Performed By: #### A 1C #### [facility] [address] [place] [address] Dr. Ed Carbajal Platelet mean volume (Bld) [Entitic vol] 10.3 fL Normal 9.5-13.5 [facility] Comment on above: Performed By: #### A 1C #### [facility] [address] [place] [address] Dr. Ed Carbajal PLT 264 103/ul Normal 150-450 [facility] Comment on above: Performed By: #### A 1C #### [facility] [address] [place] [address] Dr. Ed Carbajal RBC 4.38 106/ul Normal 4.20-5.40 [facility] Comment on above: Performed By: #### A 1C #### [facility] [address] [address] [address] Ed Carbajal WBC 12.2 103/ul Critically high 4.0-11.0 [facility] Comment on above: Performed By: #### A 1C #### [facility] [address] [address] [address] Ed Carbajal GLYCOHEMOGLOBIN A1Con 2022 ADA RECOMMENDATION SEE BELOW Normal [facility] Comment on above: Result Comment: ADA RECOMMENDED LIMIT 4.0 - 6.0 ADA THERAPEUTIC TARGET < 7.0 ACTION SUGGESTED > 7.0 Performed By: #### A 1C #### [facility] [address] [address] [address] Ed Carbajal Glucose [Mass/Vol] 186 mg/dL Normal [facility] Comment on above: Performed By: #### A 1C #### [facility] [address] [address] [address] Ed Carbajal HbA1c (Bld) [Mass fraction] 8.1 % Critically high 4.5-6.2 [facility] Comment on above: Performed By: #### A 1C #### [facility] [address] [place] [address] Dr. Ed Carbajal LIPID PROFILEon 11-05-2022 CHOL-HDL RATIO NORM SEE BELOW Normal [facility] Comment on above: Result Comment: 3.3 - 4.4 LOW RISK 4.4 - 7.1 AVERAGE RISK 7.1 - 11.0 MODERATE RISK >11.0 HIGH RISK Performed By: #### A 1C #### [facility] [address] [place] [address] Dr. Ed Carbajal Cholesterol [Mass/Vol] 186 mg/dL Normal <=200 [facility] Comment on above: Performed By: #### A 1C #### [facility] [address] [place] [address] Dr. Ed Carbajal Cholesterol in HDL [Mass/Vol] 45 mg/dL Normal 40-60 [facility] Comment on above: Performed By: #### A 1C #### [facility] [address] [address] [address] Ed Carbajal Cholesterol in LDL [Mass/Vol] 95.6 mg/dL Normal [facility] Comment on above: Performed By: #### A 1C #### [facility] [address] [address] [address] Ed Carbajal Cholesterol.total/Cho lesterol in HDL [Mass ratio] 4.1 {ratio} Normal [facility] Comment on above: Performed By: #### A 1C #### [facility] [address] [place] [address] Dr. Ed Carbajal HDL NORMAL > or = 60 mg/dl - LOW CARDIOVASCULAR RISK <40 mg/dl - HIGH CARDIOVASCULAR RISK Normal [facility] Comment on above: Performed By: #### A 1C #### [facility] [address] [place] [address] Dr. Ed Carbajal LDL CALC NORMAL SEE BELOW Normal [facility] Comment on above: Result Comment: <100 mg/dl OPTIMAL 100 - 129 mg/dl NEAR OR ABOVE OPTIMAL 130 - 159 mg/dl BORDERLINE HIGH 160 - 189 mg/dl HIGH >190 mg/dl VERY HIGH Performed By: #### A 1C #### [facility] [address] [place] [address] Dr. Ed Carbajal Triglyceride [Mass/Vol] 227 mg/dL Critically high <=150 [facility] Comment on above: Performed By: #### A 1C #### [facility] [address] [place] [address] Dr. Ed Carbajal VLDL CALC 45.4 mg/dL Normal [facility] Comment on above: Performed By: #### A 1C #### [facility] [address] [place] [address] Dr. Ed Carbjaal PROF 14(COMP METB)on 023 Albumin [Mass/Vol] 3.7 g/dL Normal 3.4-5.0 [facility] Comment on above: Performed By: #### A 1C #### [facility] [address] [place] [address] Dr. Ed Carbajal Albumin/Globulin [Mass ratio] 0.8 {ratio} Normal [facility] Comment on above: Performed By: #### A 1C #### [facility] [address] [address] [address] Ed Carbajal ALP [Catalytic activity/Vol] 126 U/L Critically high 46-116 [facility] Comment on above: Performed By: #### A 1C #### [facility] [address] [address] [address] Ed Carbajal ALT [Catalytic activity/Vol] 32 U/L Normal 14-59 [facility] Comment on above: Performed By: #### A 1C #### [facility] [address] [address] [address] Ed Carbajal Anion gap [Moles/Vol] 15.5 mmol/L Normal [facility] Comment on above: Performed By: #### A 1C #### [facility] [address] [place] [address] Dr. Ed Carbajal AST [Catalytic activity/Vol] 17 U/L Normal 15-37 [facility] Comment on above: Performed By: #### A 1C #### [facility] [address] [place] [address] Dr. Ed Carbajal Bilirubin [Mass/Vol] 0.4 mg/dL Normal 0.2-1.0 [facility] Comment on above: Performed By: #### A 1C #### [facility] [address] [place] [address] Dr. Ed Carbajal Calcium [Mass/Vol] 11.5 mg/dL Critically high 8.5-10.1 [facility] Comment on above: Performed By: #### A 1C #### [facility] [address] [place] [address] Dr. Ed Carbajal Chloride [Moles/Vol] 97 mmol/L Critically low 98-107 [facility] Comment on above: Performed By: #### A 1C #### [facility] [address] [place] [address] Dr. Ed Carbajal CO2 [Moles/Vol] 31.2 mmol/L Normal 21.0-32.0 [facility] Comment on above: Performed By: #### A 1C #### [facility] [address] [address] [address] Ed Carbajal Creatinine [Mass/Vol] 1.69 mg/dL Critically high 0.55-1.02 [facility] Comment on above: Performed By: #### A 1C #### [facility] [address] [address] [address] Ed Carbajal EGFR-AF TUNISIAN 36 mL/min/1.73m2 Critically low >=60 [facility] Comment on above: Performed By: #### A 1C #### [facility] [address] [address] [address] Ed Carbajal EGFR-NON AF TUNISIAN 29 mL/min/1.73m2 Critically low >=60 [facility] Comment on above: Performed By: #### A 1C #### [facility] [address] [address] [address] Ed Carbajal Globulin (S) [Mass/Vol] 4.4 g/dL Normal [facility] Comment on above: Performed By: #### A 1C #### [facility] [address] [address] [address] Ed Carbajal Glucose [Mass/Vol] 210 mg/dL Critically high 74-106 [facility] Comment on above: Performed By: #### A 1C #### [facility] [address] [address] [address] Ed Carbajal Potassium [Moles/Vol] 3.7 mmol/L Normal 3.5-5.1 [facility] Comment on above: Performed By: #### A 1C #### [facility] [address] [address] [address] Ed Carbajal Protein [Mass/Vol] 8.1 g/dL Normal 6.4-8.2 [facility] Comment on above: Performed By: #### A 1C #### [facility] [address] [address] [address] Ed Carbajal Sodium [Moles/Vol] 140 mmol/L Normal 136-145 [facility] Comment on above: Performed By: #### A 1C #### [facility] [address] [address] [address] Ed Carbajal Urea nitrogen [Mass/Vol] 36.0 mg/dL Critically high 7.0-18.0 [facility] Comment on above: Performed By: #### A 1C #### [facility] [address] [address] [address] Ed Carbajal Urea nitrogen/Creatinine [Mass ratio] 21.3 mg/mg Normal [facility] Comment on above: Performed By: #### A 1C #### [facility] [address] [place] [address] Dr. Ed Carbajal TSHon 11-05-2022 TSH 2.517 uIU/mL Normal 0.358-3.740 [facility] Comment on above: Performed By: #### A 1C #### [facility] [address] [place] [address] Dr. Ed Carbajal URINE T PROTEIN CREAT RATIOo n 11-05-2022 Protein (U) [Mass/Vol] 12.8 mg/dL Critically high <=12.0 [facility] Comment on above: Performed By: #### A 1C #### [facility] [address] [address] [address] Ed Carbajal UR PROT CREAT RAT 0.35 Normal [facility] Comment on above: Performed By: #### A 1C #### [facility] [address] [place] [address] Dr. Ed Carbajal URINE CREAT 36.93 mg/dL Normal 20.00-300.00 [facility] Comment on above: Performed By: #### A 1C #### [facility] [address] [place] [address] Dr. Ed Carbajal GLYCOHEMOGLOBIN A1Con 2022 ADA RECOMMENDATION SEE BELOW Normal [facility] Comment on above: Result Comment: ADA RECOMMENDED LIMIT 4.0 - 6.0 ADA THERAPEUTIC TARGET < 7.0 ACTION SUGGESTED > 7.0 Performed By: #### A 1C #### [facility] [address] [place] [address] Dr. Ed Carbajal Glucose [Mass/Vol] 154 mg/dL Normal [facility] Comment on above: Performed By: #### A 1C #### [facility] [address] [address] [address] Ed Carbajal HbA1c (Bld) [Mass fraction] 7.0 % Critically high 4.5-6.2 [facility] Comment on above: Performed By: #### A 1C #### [facility] [address] [place] [address] Dr. Ed Carbajal PROF CHEM 8 (BAS METB)on Anion gap [Moles/Vol] 13.8 mmol/L Normal [facility] Comment on above: Performed By: #### A 1C #### [facility] [address] [place] [address] Dr. Ed Carbajal Calcium [Mass/Vol] 10.4 mg/dL Critically high 8.5-10.1 [facility] Comment on above: Performed By: #### A 1C #### [facility] [address] [place] [address] Dr. Ed Carbajal Chloride [Moles/Vol] 97 mmol/L Critically low 98-107 [facility] Comment on above: Performed By: #### A 1C #### [facility] [address] [place] [address] Dr. Ed Carbajal CO2 [Moles/Vol] 28.0 mmol/L Normal 21.0-32.0 [facility] Comment on above: Performed By: #### A 1C #### [facility] [address] [place] [address] Dr. Ed Carbajal Creatinine [Mass/Vol] 1.32 mg/dL Critically high 0.55-1.02 [facility] Comment on above: Performed By: #### A 1C #### [facility] [address] [place] [address] Dr. Ed Carbajal EGFR-AF TUNISIAN 47 mL/min/1.73m2 Critically low >=60 [facility] Comment on above: Performed By: #### A 1C #### [facility] [address] [place] [address] Dr. Ed Carbajal EGFR-NON AF TUNISIAN 39 mL/min/1.73m2 Critically low >=60 [facility] Comment on above: Performed By: #### A 1C #### [facility] [address] [place] [address] Dr. Ed Carbajal Glucose [Mass/Vol] 184 mg/dL Critically high 74-106 [facility] Comment on above: Performed By: #### A 1C #### [facility] [address] [place] [address] Dr. Ed Carbajal Potassium [Moles/Vol] 3.8 mmol/L Normal 3.5-5.1 [facility] Comment on above: Performed By: #### A 1C #### [facility] [address] [place] [address] Dr. Ed Carbajal Sodium [Moles/Vol] 135 mmol/L Critically low 136-145 [facility] Comment on above: Performed By: #### A 1C #### [facility] [address] [place] [address] Dr. Ed Carbajal Urea nitrogen [Mass/Vol] 27.0 mg/dL Critically high 7.0-18.0 [facility] Comment on above: Performed By: #### A 1C #### [facility] [address] [place] [address] Dr. Ed Carbajal Urea nitrogen/Creatinine [Mass ratio] 20.5 mg/mg Normal [facility] Comment on above: Performed By: #### A 1C #### [facility] [address] [place] [address] Dr. Ed Carbajal URINE T PROTEIN CREAT RATIOo n 08-07-2022 Protein (U) [Mass/Vol] 5.5 mg/dL Normal <=12.0 [facility] Comment on above: Performed By: #### U RTPCR #### [facility] [address] [place] [address] Dr. Ed Carbajal UR PROT CREAT RAT 0.32 Normal [facility] Comment on above: Performed By: #### U RTPCR #### [facility] [address] [place] [address] Dr. Ed Carbajal URINE CREAT 17.25 mg/dL Critically low 20.00-300.00 [facility] Comment on above: Performed By: #### U RTPCR #### [facility] [address] [place] [address] Dr. Ed Carbajal CBC AUTO DIFFon 05-04-2022 BASO # 0.1 103/ul Normal 0.0-0.1 [facility] Comment on above: Performed By: #### C BC #### [facility] [address] [place] [address] Dr. Ed Carbajal Basophils/100 WBC (Bld) 0.9 % Normal 0.2-2.0 [facility] Comment on above: Performed By: #### C BC #### [facility] [address] [place] [address] Dr. Ed Carbajal EO # 0.4 103/ul Normal 0.0-0.7 [facility] Comment on above: Performed By: #### C BC #### [facility] [address] [place] [address] Dr. Ed Carbajal Eosinophils/100 WBC (Bld) 3.7 % Normal 0.9-7.0 [facility] Comment on above: Performed By: #### C BC #### [facility] [address] [place] [address] Dr. Ed Carbajal Erythrocyte distribution width (RBC) [Ratio] 14.6 % Normal 11.0-15.0 [facility] Comment on above: Performed By: #### C BC #### [facility] [address] [place] [address] Dr. Ed Carbajal Hematocrit (Bld) [Volume fraction] 40.1 % Normal 36.0-48.0 [facility] Comment on above: Performed By: #### C BC #### [facility] [address] [place] [address] Dr. Ed Carbajal Hemoglobin (Bld) [Mass/Vol] 12.8 g/dL Normal 12.0-16.0 [facility] Comment on above: Performed By: #### C BC #### [facility] [address] [place] [address] Dr. Ed Carbajal IG # 0.03 10e3/ul Normal 0.00-0.03 [facility] Comment on above: Performed By: #### C BC #### [facility] [address] [place] [address] Dr. Ed Carbajal IG % 0.3 % Normal 0.0-0.5 [facility] Comment on above: Performed By: #### C BC #### [facility] [address] [place] [address] Dr. Ed Carbajal LYMPH # 1.8 103/ul Normal 1.2-3.8 [facility] Comment on above: Performed By: #### C BC #### [facility] [address] [place] [address] Dr. Ed Carbajal Lymphocytes/100 WBC (Bld) 18.0 % Critically low 20.5-60.0 [facility] Comment on above: Performed By: #### C BC #### [facility] [address] [place] [address] Dr. dE Carbajal MANUAL DIFF REQ NO Normal [facility] Comment on above: Performed By: #### C BC #### [facility] [address] [place] [address] Dr. Ed Carbajal MCH (RBC) [Entitic mass] 28.0 pg Normal 26.7-34.0 [facility] Comment on above: Performed By: #### C BC #### [facility] [address] [place] [address] Dr. Ed Carbajal MCHC (RBC) [Mass/Vol] 31.9 g/dL Normal 29.9-35.2 [facility] Comment on above: Performed By: #### C BC #### [facility] [address] [place] [address] Dr. Ed Carbajal MCV (RBC) [Entitic vol] 87.7 fL Normal 81.0-99.0 [facility] Comment on above: Performed By: #### C BC #### [facility] [address] [place] [address] Dr. Ed Carbajal MONO # 0.6 103/ul Normal 0.3-0.8 [facility] Comment on above: Performed By: #### C BC #### [facility] [address] [place] [address] Dr. Ed Carbajal Monocytes/100 WBC (Bld) 6.0 % Normal 1.7-12.0 [facility] Comment on above: Performed By: #### C BC #### [facility] [address] [place] [address] Dr. Ed Carbajal NEUT # 7.0 103/ul Critically high 1.4-6.5 [facility] Comment on above: Performed By: #### C BC #### [facility] [address] [place] [address] Dr. Ed Carbajal Neutrophils/100 WBC (Bld) 71.1 % Normal 43.0-75.0 [facility] Comment on above: Performed By: #### C BC #### [facility] [address] [place] [address] Dr. Ed Carbajal Platelet mean volume (Bld) [Entitic vol] 10.8 fL Normal 9.5-13.5 [facility] Comment on above: Performed By: #### C BC #### [facility] [address] [place] [address] Dr. Ed Carbajal PLT 272 103/ul Normal 150-450 [facility] Comment on above: Performed By: #### C BC #### [facility] [address] [place] [address] Dr. Ed Carbajal RBC 4.57 106/ul Normal 4.20-5.40 [facility] Comment on above: Performed By: #### C BC #### [facility] [address] [place] [address] Dr. Ed Carbajal WBC 9.8 103/ul Normal 4.0-11.0 [facility] Comment on above: Performed By: #### C BC #### [facility] [address] [place] [address] Dr. Ed Carbajal GLYCOHEMOGLOBIN A1Con 2021 ADA RECOMMENDATION SEE BELOW Normal [facility] Comment on above: Result Comment: ADA RECOMMENDED LIMIT 4.0 - 6.0 ADA THERAPEUTIC TARGET < 7.0 ACTION SUGGESTED > 7.0 Performed By: #### A 1C #### [facility] [address] [address] [address] Ed Carbajal Glucose [Mass/Vol] 154 mg/dL Normal [facility] Comment on above: Performed By: #### A 1C #### [facility] [address] [address] [address] Ed Carbajal HbA1c (Bld) [Mass fraction] 7.0 % Critically high 4.5-6.2 [facility] Comment on above: Performed By: #### A 1C #### [facility] [address] [place] [address] Dr. Ed Carbajal LIPID PROFILEon 05-04-2022 CHOL-HDL RATIO NORM SEE BELOW Normal [facility] Comment on above: Result Comment: 3.3 - 4.4 LOW RISK 4.4 - 7.1 AVERAGE RISK 7.1 - 11.0 MODERATE RISK >11.0 HIGH RISK Performed By: #### C MP, TSH, LIPID #### [facility] [address] [address] [address] Ed Carbajal Cholesterol [Mass/Vol] 143 mg/dL Normal <=200 [facility] Comment on above: Performed By: #### C MP, TSH, LIPID #### [facility] [address] [address] [address] Ed Carbajal Cholesterol in HDL [Mass/Vol] 45 mg/dL Normal 40-60 [facility] Comment on above: Performed By: #### C MP, TSH, LIPID #### [facility] [address] [address] [address] Ed Carbajal Cholesterol in LDL [Mass/Vol] 65.4 mg/dL Normal [facility] Comment on above: Performed By: #### C MP, TSH, LIPID #### [facility] [address] [place] [address] Dr. Ed Carbjaal Cholesterol.total/Cho lesterol in HDL [Mass ratio] 3.2 {ratio} Normal [facility] Comment on above: Performed By: #### C MP, TSH, LIPID #### [facility] [address] [address] [address] Ed Carbajal HDL NORMAL > or = 60 mg/dl - LOW CARDIOVASCULAR RISK <40 mg/dl - HIGH CARDIOVASCULAR RISK Normal [facility] Comment on above: Performed By: #### C MP, TSH, LIPID #### [facility] [address] [address] [address] Ed Carbajal LDL CALC NORMAL SEE BELOW Normal [facility] Comment on above: Result Comment: <100 mg/dl OPTIMAL 100 - 129 mg/dl NEAR OR ABOVE OPTIMAL 130 - 159 mg/dl BORDERLINE HIGH 160 - 189 mg/dl HIGH >190 mg/dl VERY HIGH Performed By: #### C MP, TSH, LIPID #### [facility] [address] [address] [address] Ed Carbajal Triglyceride [Mass/Vol] 163 mg/dL Critically high <=150 [facility] Comment on above: Performed By: #### C MP, TSH, LIPID #### [facility] [address] [address] [address] Ed Carbajal VLDL CALC 32.6 mg/dL Normal [facility] Comment on above: Performed By: #### C MP, TSH, LIPID #### [facility] [address] [address] [address] Ed Carbajal MG MAMM SCREEN 3D MIRTA CADon 05-04-2022 MG MAMM SCREEN 3D MIRTA CAD Patient: RICARDO GRIJALVA Exam Date: 05/04/2022 : 1945 Gender:F Ordering : SHAIKH Anni DIAMOND . Admission #: [id number] Family : Order #: [id number] CLICK HERE TO VIEW EXAM RADIOLOGY REPORT [...] No Treatments None Family Cancers None LOCATION: [facility] BREAST COMPOSITION: Scattered areas fibroglandular density. [...] Muhammad MD on 05/04/2022 at 09:34 Normal [facility] PROF 14(COMP METB)on 022 Albumin [Mass/Vol] 3.6 g/dL Normal 3.4-5.0 [facility] Comment on above: Performed By: #### C MP, TSH, LIPID #### [facility] [address] [place] [address] Dr. Ed Carbajal Albumin/Globulin [Mass ratio] 0.9 {ratio} Normal [facility] Comment on above: Performed By: #### C MP, TSH, LIPID #### [facility] [address] [place] [address] Dr. Ed Carbajal ALP [Catalytic activity/Vol] 102 U/L Normal 46-116 [facility] Comment on above: Performed By: #### C MP, TSH, LIPID #### [facility] [address] [place] [address] Dr. Ed Carbajal ALT [Catalytic activity/Vol] 30 U/L Normal 14-59 [facility] Comment on above: Performed By: #### C MP, TSH, LIPID #### [facility] [address] [address] [address] Ed Carbajal Anion gap [Moles/Vol] 11.1 mmol/L Normal [facility] Comment on above: Performed By: #### C MP, TSH, LIPID #### [facility] [address] [place] [address] Dr. Ed Carbajal AST [Catalytic activity/Vol] 17 U/L Normal 15-37 [facility] Comment on above: Performed By: #### C MP, TSH, LIPID #### [facility] [address] [place] [address] Dr. Ed Carbajal Bilirubin [Mass/Vol] 0.5 mg/dL Normal 0.2-1.0 [facility] Comment on above: Performed By: #### C MP, TSH, LIPID #### [facility] [address] [place] [address] Dr. Ed Carbajal Calcium [Mass/Vol] 10.4 mg/dL Critically high 8.5-10.1 [facility] Comment on above: Performed By: #### C MP, TSH, LIPID #### [facility] [address] [place] [address] Dr. Ed Carbajal Chloride [Moles/Vol] 99 mmol/L Normal 98-107 [facility] Comment on above: Performed By: #### C MP, TSH, LIPID #### [facility] [address] [place] [address] Dr. Ed Carbajal CO2 [Moles/Vol] 32.4 mmol/L Critically high 21.0-32.0 [facility] Comment on above: Performed By: #### C MP, TSH, LIPID #### [facility] [address] [place] [address] Dr. Ed Carbajal Creatinine [Mass/Vol] 1.61 mg/dL Critically high 0.55-1.02 [facility] Comment on above: Performed By: #### C MP, TSH, LIPID #### [facility] [address] [place] [address] Dr. Ed Carbajal EGFR-AF TUNISIAN 38 mL/min/1.73m2 Critically low >=60 [facility] Comment on above: Performed By: #### C MP, TSH, LIPID #### [facility] [address] [place] [address] Dr. Ed Carbajal EGFR-NON AF TUNISIAN 31 mL/min/1.73m2 Critically low >=60 [facility] Comment on above: Performed By: #### C MP, TSH, LIPID #### [facility] [address] [place] [address] Dr. Ed Carbajal Globulin (S) [Mass/Vol] 4.2 g/dL Normal [facility] Comment on above: Performed By: #### C MP, TSH, LIPID #### [facility] [address] [place] [address] Dr. Ed Carbajal Glucose [Mass/Vol] 130 mg/dL Critically high 74-106 [facility] Comment on above: Performed By: #### C MP, TSH, LIPID #### [facility] [address] [place] [address] Dr. Ed Carbajal Potassium [Moles/Vol] 3.5 mmol/L Normal 3.5-5.1 [facility] Comment on above: Performed By: #### C MP, TSH, LIPID #### [facility] [address] [place] [address] Dr. Ed Carbajal Protein [Mass/Vol] 7.8 g/dL Normal 6.4-8.2 [facility] Comment on above: Performed By: #### C MP, TSH, LIPID #### [facility] [address] [place] [address] Dr. Ed Carbajal Sodium [Moles/Vol] 139 mmol/L Normal 136-145 [facility] Comment on above: Performed By: #### C MP, TSH, LIPID #### [facility] [address] [place] [address] Dr. Ed Carbajal Urea nitrogen [Mass/Vol] 39.0 mg/dL Critically high 7.0-18.0 [facility] Comment on above: Performed By: #### C MP, TSH, LIPID #### [facility] [address] [place] [address] Dr. Ed Carbajal Urea nitrogen/Creatinine [Mass ratio] 24.2 mg/mg Normal [facility] Comment on above: Performed By: #### C MP, TSH, LIPID #### [facility] [address] [place] [address] Dr. Ed Carbajal TSHon 05-04-2022 TSH 3.236 uIU/mL Normal 0.358-3.740 [facility] Comment on above: Performed By: #### C MP, TSH, LIPID #### [facility] [address] [place], [place] [address] Dr. Ed Carbajal GLYCOHEMOGLOBIN A1Con 2021 ADA RECOMMENDATION SEE BELOW Normal [facility] Comment on above: Result Comment: ADA RECOMMENDED LIMIT 4.0 - 6.0 ADA THERAPEUTIC TARGET < 7.0 ACTION SUGGESTED > 7.0 Performed By: #### A 1C #### [facility] [address] [address] [address] Ed Carbajal Glucose [Mass/Vol] 160 mg/dL Normal [facility] Comment on above: Performed By: #### A 1C #### [facility] [address] [address] [address] Ed Carbajal HbA1c (Bld) [Mass fraction] 7.2 % Critically high 4.5-6.2 [facility] Comment on above: Performed By: #### A 1C #### [facility] [address] [address] [address] Ed Carbajal Encounters Encounter Date Encounter Type Care Provider Facility Start: 12-17-2023 End: 12-17-2023 ambulatory SRIVASTAVA FAWWAD Not Available Start: 11-04-2023 End: 11-04-2023 ambulatory SRIVASTAVA FAWWAD Not Available Start: 09-24-2023 End: 09-24-2023 ambulatory SRIVASTAVA FAWWAD Not Available Start: 06-18-2023 End: 06-18-2023 ambulatory SRIVASTAVA FAWWAD Not Available Start: 11-05-2022 End: 11-06-2022 ambulatory SRIVASTAVA H FAWWAD Facility:[facility] Start: 08-07-2022 End: 08-08-2022 ambulatory SRIVASTAVA H FAWWAD Facility:[facility] Start: 05-04-2022 End: 05-05-2022 ambulatory SRIVASTAVA H FAWWAD Facility:[facility] Start: 01-01-2022 End: 01-02-2022 ambulatory SRIVASTAVA H FAWWAD Facility:[facility] Payers Date Payer Category Payer Medicare [id number] 1958 Unknown [id number] 1945 Unknown [id number] 2.16.84 [id number] 1945 Unknown [id number] 2.16.84 [id number] 1945 Unknown [id number] 2.16.84 [id number] 1945 Unknown [id number] 2.16.84 [id number] 1945 Unknown [id number] 2.16.84 [id number] 1945 Unknown [id number] 2.16.84 [id number] 1945 Unknown [id number] 2.16.84 [id number] 1945 Unknown [id number] 2.16.840 .[id number] Summary Purpose Family History No Family History Records FoundNo Family History Records Found Advance Directives No Advanced Directives Records FoundNo Advanced Directives Records Found Additional Source Comments INFORMATION SOURCE (unrecogn ized section and content) DATE CREATED AUTHOR 11/10/2022 [facility] DATE CREATED AUTHOR AUTHOR'S KARO SALAS 12/17/2023 [facility] FOR RECORDS PERTAINING TO PATIENTS WHO ARE [...] BE BASED ON THE PRIMARY CLINICAL RECORDS. [facility] [employer] provides no warranty or guarantee of the accuracy or completeness of information in this document.
[2024-04-07 15:12] LABS: Estimated Average Glucose 148 mg/dL; Glycohemoglobin A1C 6.8 % (4.5-6.2)
[2024-04-07 15:13] LABS: Alanine Aminotransferase 25 U/L (14-59); Albumin Globulin Ratio 0.9; Albumin Level 3.5 g/dL (3.4-5.0); Alkaline Phosphatase 124 U/L (46-116); Anion Gap 14.4; Aspartate Amino Transferase 14 U/L (15-37); BUN Creatinine Ratio 16.3; Bilirubin Total 0.4 mg/dL (0.2-1.0); Calcium 10.4 mg/dL (8.5-10.1); Chloride 100 mmol/L (98-107); Chol HDL Ratio 3.3; Cholesterol 170 mg/dL (<=200); Estimated GFR (African America 33 (>=60 mL/min/1.73m^2); Estimated GFR (Non-African Ame 28 (>=60 mL/min/1.73m^2); Glucose 127 mg/dL (74-106); HDL Cholesterol 52 mg/dL (40-60); Potassium 4.4 mmol/L (3.5-5.1); Sodium 138 mmol/L (136-145); Total Protein 7.5 g/dL (6.4-8.2); Triglycerides 208 mg/dL (<=150); VLDL CHOLESTEROL 41.6 mg/dL
== END 2024-04-07 14:25 | disposition home or self-care (01) ==
PROVIDERS: Visit Provider Internal Medicine
DX: E78.49 Other hyperlipidemia (principal); N18.31 Chronic kidney disease, stage 3a; E11.22 Type 2 diabetes mellitus with diabetic chronic kidney disease; Z79.4 Long term (current) use of insulin; I12.9 Hypertensive chronic kidney disease with stage 1 through stage 4 chronic kidney disease, or unspecified chronic kidney disease
CPT/HCPCS: 36415; 80053; 80061; 83036

== ENCOUNTER 2024-08-04 07:20 | Outpatient (OUT) | payer MEDICARE, OTHER, SELFPAY ==
--- OUTSIDE RECORDS SUMMARY | 2024-08-04 07:24 | XMS_ITS | CCD ---
Author Organization [facility] Care Team Providers Care Demand Inspector Name Role Phone FAWWAD, SRIVASTAVA H Admitting [...] Care Unavailable FAWWAD, SRIVASTAVA H Consulting Unavailable Jhonny Rai MD Primary Care Provider [phone] Carin Brown NP Unavailable [phone] FAWWAD, SRIVASTAVA Attending Unavailable FAWWAD, SRIVASTAVA Attending Unavailable FAWWAD, SRIVASTAVA Attending Unavailable FAWWAD, SRIVASTAVA Attending Unavailable CARIN BROWN Attending Unavailabl e Allergies Allergy Classification Reported Allergen(s) Allergy Type Date of Onset Reaction(s) Facility (7 sources) Sulfamethoxazole / Trimethoprim Drug Allergy 3 Rash, GI intolerance [facility] Medications Current Medications Medication Drug Class(es) Dates Sig (Normalized) Sig (Original) alendronic acid 35 mg oral tablet (7 sources) Bisphosphonate Start: 02-14-2024 take 1 tablet by mouth every week alendronate (Fosamax) 35 MG tablet Indications: Osteoporosis without current pathological fracture, unspecified osteoporosis type ([facility]/HCC) TAKE 1 TABLET BY MOUTH WEEKLY WITH 8 OZ OF PLAIN WATER 30 MINUTES BEFORE FIRST FOOD, DRINK OR MEDS. STAY UPRIGHT FOR 30 MINS 12 tablet 3 02/14/2024 Active allopurinol 100 mg oral tablet (7 sources) Xanthine Oxidase Inhibitor take 1 tablet by mouth in the morning allopurinol (Zyloprim) 100 MG tablet Take 100 mg by mouth in the morning. Active amLODIPine 10 mg oral tablet (8 sources) Dihydropyridine Calcium Channel Acosta Start: 12-17-2023 End: 11-07-2024 take 1 tablet by mouth once daily amLODIPine (Norvasc) 10 MG tablet Indications: Primary hypertension ([facility]) Take 1 tablet (10 mg) by mouth Daily 90 tablet 1 05/11/2024 11/07/2024 Active atorvastatin 20 mg oral tablet (7 sources) HMG-CoA Reductase Inhibitor Start: 02-18-2024 take 1 tablet by mouth once daily atorvastatin (Lipitor) 20 MG tablet Indications: Hyperlipidemia, unspecified hyperlipidemia type (CMS/HCC) TAKE 1 TABLET BY MOUTH DAILY 90 tablet 3 02/18/2024 Active furosemide 40 mg oral tablet (7 sources) Loop Diuretic Start: 02-18-2024 take 1 tablet by mouth once daily furosemide (Lasix) 40 MG tablet Indications: Primary hypertension (CMS/HCC) , Stage 3a chronic kidney disease (HCC) (CMS/[facility]) TAKE 1 TABLET BY MOUTH DAILY 90 tablet 3 02/18/2024 Active glipiZIDE 10 mg oral tablet (7 sources) Sulfonylurea Start: 02-18-2024 take 1 tablet by mouth once daily glipiZIDE (Glucotrol) 10 MG tablet Indications: Type 2 diabetes mellitus with stage 3a chronic kidney disease, with long-term current use of insulin (HCC) (CMS/[facility]) TAKE 1 TABLET BY MOUTH DAILY 90 tablet 3 02/18/2024 Active Glucose Blood (BLOOD GLUCOSE TEST ) (7 sources) Glucose Blood (BLOOD GLUCOSE TEST ) Active insulin glargine 100 unt/ml injectable solution (8 sources) Insulin Analog Start: 12-09-2023 End: 11-23-2024 inject 70 [IU] by subcutaneous injection at bedtime insulin glargine (Lantus) 100 UNIT/ML injection Indications: Type 2 diabetes mellitus with stage 3a chronic kidney disease, with long-term current use of insulin (HCC) ([facility]) Inject 70 Units under the skin at bedtime 63 mL 1 05/27/2024 11/23/2024 Active 3 ml insulin lispro 100 unt/ml pen injector (9 sources) Insulin Analog Start: 05-27-2024 insulin lispro (HumaLOG KWIKPEN) 100 UNIT/ML injection Indications: Type 2 diabetes mellitus with stage 3a chronic kidney disease, with long-term current use of insulin (HCC) ([facility]) INJECT 12 UNITS WITH BREAKFAST, LUNCH, AND 8 UNITS WITH DINNER. FOR FSBS 150-200 6 UNITS, 201-250 8 UNITS, 251-300 10 UNITS MAX 50 UNITS/DAY 48 mL 1 05/27/2024 Active Start: 12-09-2023 End: 05-26-2024 insulin lispro (HumaLOG KWIK PEN) 100 UNIT/ML injection Indications: Type 2 diabetes mellitus with stage 3a chronic kidney disease, with long-term current use of insulin (HCC) ([facility]) INJECT 12 UNITS WITH BREAKFAST, LUNCH, AND 8 UNITS WITH DINNER. FOR FSBS 150-200 6 UNITS, 201-250 8 UNITS, 251-300 10 UNITS MAX 50 UNITS/DAY 48 mL 1 05/13/2024 05/26/2024 Discontinued (Reorder) isopropyl alcohol 0.7 ml/ml medicated pad (7 sources) Alcohol Swabs (Alcohol Prep) 70 % pads Active levothyroxine sodium 0.088 mg oral tablet (7 sources) l-Thyroxine Start: take 1 tablet by mouth once daily Synthroid 88 MCG tablet Indications: Other specified hypothyroidism ([facility]) TAKE 1 TABLET BY MOUTH DAILY 90 tablet 3 11/13/2023 Active losartan potassium 100 mg oral tablet (7 sources) Angiotensin 2 Receptor Acosta Start: take 1 tablet by mouth once daily losartan (Cozaar) 100 MG tablet Indications: Primary hypertension ([facility]) TAKE 1 TABLET BY MOUTH DAILY 90 tablet 3 02/18/2024 Active metFORMIN hydrochloride 500 mg oral tablet (7 sources) Biguanide Start: take 1 tablet by mouth every twelve hours metFORMIN (Glucophage) 500 MG tablet Indications: Type 2 diabetes mellitus with stage 3a chronic kidney disease, with long-term current use of insulin (HCC) ([facility]) TAKE 1 TABLET BY MOUTH EVERY 12 HOURS 180 tablet 3 02/18/2024 Active Ozempic, 1 MG/DOSE, 4 MG/3ML solution pen-injector (7 sources) Start: 024 inject 1 mg by subcutaneous injection every week Ozempic, 1 MG/DOSE, 4 MG/3ML solution pen-injector Indications: Type 2 diabetes mellitus with stage 3a chronic kidney disease, with long-term current use of insulin (HCC) (CMS/HCC) INJECT 1 MG SUBCUTANEOUSLY ONCE WEEKLY 9 mL 3 02/14/2024 Active Problems Active Problems Problem Classification Problem Date Documented Da te Episodic/Chronic Chronic kidney disease (16 sources) Chronic kidney disease stage 3A ; Translations: [Stage 3a chronic kidney disease (HCC)] Onset: 06-18-2023 06-18-2023 Chronic Diabetes mellitus with complications (15 sources) Type 2 diabetes mellitus with diabetic chronic kidney disease; Translations: [Insulin treated type 2 diabetes mellitus] Onset: 11-05-2022 Chronic Diabetes mellitus without complication (5 sources) Type 2 diabetes mellitus without complications; Translations: [TYPE 2 DM WITHOUT COMPLICATIONS] Onset: 01-01-2022 Chronic Disorders of lipid metabolism (14 sources) Hyperlipidemia, unspecified; Translations: [Hyperlipidemia] Onset: 05-04-2022 Chronic Essential hypertension (18 sources) Essential (primary) hypertension; Translations: [Essential hypertension] Onset: 05-06-2022 Resolved: 09-24-2023 06-18-2023 Chronic Hypertension with complications and secondary hypertension (1 source) Hypertensive chronic kidney disease with stage 1 through stage 4 chronic kidney disease, or unspecified chronic kidney disease; Translations: [HTN CKD W/STAGE 1-4 CKD/UNS CKD] Onset: 11-09-2022 Chronic Other nutritional; endocrine; and metabolic disorders (7 sources) Body mass index 40+ - severely obese; Translations: [Body mass index (BMI) 40.0-44.9, adult] Onset: 04-09-2024 04-09-2024 Chronic Thyroid disorders (8 sources) Hypothyroidism, unspecified; Translations: [Hypothyroidism] Onset: 11-09-2022 06-18-2023 Chronic Unclassified (1 source) CHRN KIDNEY DISEASE STG 3 UNSP; Translations: [CHRN KIDNEY DISEASE STG 3 UNSP] Onset: 11-09-2022 Past or Other Problems Problem Classification Problem Date Documented Da te Episodic/Chronic Mood disorders (7 sources) Mood disorders Onset: 09-24-2023 09-24-2023 Other screening for suspected conditions (not mental disorders or infectious disease) (8 sources) Encounter for screening mammogram for malignant neoplasm of breast; Translations: [Patient encounter status] Onset: 05-06-2022 06-18-2023 Episodic Results Test Name Value Interpretation Reference Range Facility ALL LIPID PROFILE (FASTING)o n 04-07-2024 CHOL HDL RATIO [facility].3 [facility] Comment on above: 3.3 - 4.4 LOW RISK 4.4 - 7.1 AVERAGE RISK 7.1 - 11.0 MODERATE RISK >11.0 HIGH RISK Cholesterol [Mass/Vol] 170 mg/dL NINF - 200 mg/dL [facility] Cholesterol in HDL [Mass/Vol] 52 mg/dL 40 - 60 mg/dL [facility] Comment on above: > or =60 mg/dl - LOW CARDIOVASCULAR RISK <40 mg/dl - HIGH CARDIOVASCULAR RISK Magnesium [Mass/Vol] 77.0 mg/dL [facility] Comment on above: <100 mg/dl OPTIMAL 100-129 mg/dl NEAR OR ABOVE OPTIMAL 130-159 mg/dl BORDERLINE HIGH 160-189 mg/dl HIGH >190 mg/dl VERY HIGH Magnesium [Mass/Vol] 41.6 mg/dL [facility] Triglyceride [Mass/Vol] 208 mg/dL High NINF - 150 mg/dL [facility] CMP (CMP) (FOR REMOTE FH C USE)on 04-07-2024 Albumin [Mass/Vol] 3.5 g/dL 3.4 - 5.0 g/dL [facility] ALBUMIN GLOBULIN RATIO 0.9 [facility] ALP [Catalytic activity/Vol] 124 U/L High 46 - 116 U/L [facility] ALT [Catalytic activity/Vol] 25 U/L 14 - 59 U/L [facility] Anion gap [Moles/Vol] 14.4 mmol/L NO [facility] AST [Catalytic activity/Vol] 14 U/L Low 15 - 37 U/L [facility] Bilirubin [Mass/Vol] 0.4 mg/dL 0.2 - 1 .0 mg/dL [facility] Calcium [Mass/Vol] 10.4 mg/dL High 8.5 - 10. 1 mg/dL [facility] Chloride [Moles/Vol] 100 mmol/L 98 - 10 7 mmol/L [facility] CO2 [Moles/Vol] 28.0 mmol/L 21.0 - 32.0 mmol/L [facility] Creatinine [Mass/Vol] 1.78 mg/dL High 0.55 - 1.02 mg/dL [facility] GFR/1.73 sq M.predicted CKD-EPI (S/P/Bld) [Vol rate/Area] 33 Low >=60 mL/min/1.73m 2 [facility] Globulin (S) [Mass/Vol] 4.0 g/dL [facility] Glucose [Mass/Vol] 127 mg/dL High 74 - 106 mg/dL NO [facility] Potassium [Moles/Vol] 4.4 mmol/L 3.5 - 5.1 mmol/L [facility] Protein [Mass/Vol] 7.5 g/dL 6.4 - 8.2 g/dL NO [facility] Sodium [Moles/Vol] 138 mmol/L 136 - 145 mmol/L [facility] TBH EGFR-NON AF URUGUAYAN 28 Low >=60 mL/min/1.73m 2 [facility] Urea nitrogen [Mass/Vol] 29.0 mg/dL High 7.0 - 18.0 mg/dL [facility] Urea nitrogen/Creatinine [Mass ratio] 16.3 mg/mg [facility] MLR HEMOGLOBIN A1Con 024 Glucose [Mass/Vol] 148 mg/dL [facility] HbA1c (Bld) [Mass fraction] 6.8 % High 4.5 - 6.2 % [facility] Comment on above: ADA RECOMMENDED LIMI T 4.0 - 6.0 ADA THERAPEUTIC TARGET < 7.0 ACTION SUGGESTED > 7.0 Interpretation and review of laboratory results Abnormal [facility] No Panel Informationon 04-07 Interpretation and review of laboratory results Abnormal [facility] CBC AUTO DIFFon 11-05-2022 BASO # 0.1 103/ul Normal 0.0-0.1 [facility] Comment on above: Performed By: #### A 1C #### [facility] [address] [address] [address] Ed Carbajal Basophils/100 WBC (Bld) 0.7 % Normal 0.2-2.0 [facility] Comment on above: Performed By: #### A 1C #### [facility] [address] [place] [address] Dr. Ed Carbajal EO # 0.1 103/ul Normal 0.0-0.7 [facility] Comment on above: Performed By: #### A 1C #### [facility] [address] [place] [address] Dr. Ed Carbajal Eosinophils/100 WBC (Bld) 1.1 % Normal 0.9-7.0 [facility] Comment on above: Performed By: #### A 1C #### [facility] [address] [place] [address] Dr. Ed Carbajal Erythrocyte distribution width (RBC) [Ratio] 14.6 % Normal 11.0-15.0 [facility] Comment on above: Performed By: #### A 1C #### [facility] [address] [place] [address] Dr. Ed Carbajal Hematocrit (Bld) [Volume fraction] 39.4 % Normal 36.0-48.0 [facility] Comment on above: Performed By: #### A 1C #### [facility] [address] [place] [address] Dr. Ed Carbajal Hemoglobin (Bld) [Mass/Vol] 12.7 g/dL Normal 12.0-16.0 [facility] Comment on above: Performed By: #### A 1C #### [facility] [address] [place] [address] Dr. Ed Carbajal IG # 0.07 10e3/ul Critically high 0.00-0.03 [facility] Comment on above: Performed By: #### A 1C #### [facility] [address] [place] [address] Dr. Ed Carbajal IG % 0.6 % Critically high 0.0-0.5 [facility] Comment on above: Performed By: #### A 1C #### [facility] [address] [place] [address] Dr. Ed Carbajal LYMPH # 1.8 103/ul Normal 1.2-3.8 [facility] Comment on above: Performed By: #### A 1C #### [facility] [address] [place] [address] Dr. Ed Carbajal Lymphocytes/100 WBC (Bld) 14.4 % Critically low 20.5-60.0 [facility] Comment on above: Performed By: #### A 1C #### [facility] [address] [place] [address] Dr. Ed Carbajal MANUAL DIFF REQ NO Normal [facility] Comment on above: Performed By: #### A 1C #### [facility] [address] [place] [address] Dr. Ed Carbajal MCH (RBC) [Entitic mass] 29.0 pg Normal 26.7-34.0 [facility] Comment on above: Performed By: #### A 1C #### [facility] [address] [place] [address] Dr. Ed Carbajal MCHC (RBC) [Mass/Vol] 32.2 g/dL Normal 29.9-35.2 [facility] Comment on above: Performed By: #### A 1C #### [facility] [address] [place] [address] Dr. Ed Carbajal MCV (RBC) [Entitic vol] 90.0 fL Normal 81.0-99.0 [facility] Comment on above: Performed By: #### A 1C #### [facility] [address] [place] [address] Dr. Ed Carbajal MONO # 0.6 103/ul Normal 0.3-0.8 [facility] Comment on above: Performed By: #### A 1C #### [facility] [address] [place] [address] Dr. Ed Carbajal Monocytes/100 WBC (Bld) 4.7 % Normal 1.7-12.0 [facility] Comment on above: Performed By: #### A 1C #### [facility] [address] [place] [address] Dr. Ed Carbajal NEUT # 9.6 103/ul Critically high 1.4-6.5 [facility] Comment on above: Performed By: #### A 1C #### [facility] [address] [address] [address] Ed Carbajal Neutrophils/100 WBC (Bld) 78.5 % Critically high 43.0-75.0 [facility] Comment on above: Performed By: #### A 1C #### [facility] [address] [address] [address] Ed Carbajal Platelet mean volume (Bld) [Entitic vol] 10.3 fL Normal 9.5-13.5 [facility] Comment on above: Performed By: #### A 1C #### [facility] [address] [address] [address] Ed Carbajal PLT 264 103/ul Normal 150-450 [facility] Comment on above: Performed By: #### A 1C #### [facility] [address] [address] [address] Ed Carbajal RBC 4.38 106/ul Normal 4.20-5.40 [facility] Comment on above: Performed By: #### A 1C #### [facility] [address] [address] [address] Ed Carbajal WBC 12.2 103/ul Critically high 4.0-11.0 [facility] Comment on above: Performed By: #### A 1C #### [facility] [address] [address] [address] Ed Carbajal GLYCOHEMOGLOBIN A1Con 2022 ADA RECOMMENDATION SEE BELOW Normal [facility] Comment on above: Result Comment: ADA RECOMMENDED LIMIT 4.0 - 6.0 ADA THERAPEUTIC TARGET < 7.0 ACTION SUGGESTED > 7.0 Performed By: #### A 1C #### [facility] [address] [address] [address] Ed Carbajal Glucose [Mass/Vol] 186 mg/dL Normal [facility] Comment on above: Performed By: #### A 1C #### [facility] [address] [address] [address] Ed Carbajal HbA1c (Bld) [Mass fraction] 8.1 % Critically high 4.5-6.2 [facility] Comment on above: Performed By: #### A 1C #### [facility] [address] [address] [address] Ed Carbajal LIPID PROFILEon 11-05-2022 CHOL-HDL RATIO NORM SEE BELOW Normal [facility] Comment on above: Result Comment: 3.3 - 4.4 LOW RISK 4.4 - 7.1 AVERAGE RISK 7.1 - 11.0 MODERATE RISK >11.0 HIGH RISK Performed By: #### A 1C #### [facility] [address] [address] [address] Ed Carbajal Cholesterol [Mass/Vol] 186 mg/dL Normal <=200 [facility] Comment on above: Performed By: #### A 1C #### [facility] [address] [address] [address] Ed Carbajal Cholesterol in HDL [Mass/Vol] 45 mg/dL Normal 40-60 [facility] Comment on above: Performed By: #### A 1C #### [facility] [address] [address] [address] Ed Carbajal Cholesterol in LDL [Mass/Vol] 95.6 mg/dL Normal [facility] Comment on above: Performed By: #### A 1C #### [facility] [address] [address] [address] Ed Carbajal Cholesterol.total/Cho lesterol in HDL [Mass ratio] 4.1 {ratio} Normal [facility] Comment on above: Performed By: #### A 1C #### [facility] [address] [address] [address] Ed Carbajal HDL NORMAL > or = 60 mg/dl - LOW CARDIOVASCULAR RISK <40 mg/dl - HIGH CARDIOVASCULAR RISK Normal [facility] Comment on above: Performed By: #### A 1C #### [facility] [address] [address] [address] Ed Carbajal LDL CALC NORMAL SEE BELOW Normal [facility] Comment on above: Result Comment: <100 mg/dl OPTIMAL 100 - 129 mg/dl NEAR OR ABOVE OPTIMAL 130 - 159 mg/dl BORDERLINE HIGH 160 - 189 mg/dl HIGH >190 mg/dl VERY HIGH Performed By: #### A 1C #### [facility] [address] [place] [address] Dr. Ed Carbajal Triglyceride [Mass/Vol] 227 mg/dL Critically high <=150 [facility] Comment on above: Performed By: #### A 1C #### [facility] [address] [address] [address] Ed Carbajal VLDL CALC 45.4 mg/dL Normal [facility] Comment on above: Performed By: #### A 1C #### [facility] [address] [address] [address] Ed Carbajal PROF 14(COMP METB)on 023 Albumin [Mass/Vol] 3.7 g/dL Normal 3.4-5.0 [facility] Comment on above: Performed By: #### A 1C #### [facility] [address] [place] [address] Dr. Ed Carbajal Albumin/Globulin [Mass ratio] 0.8 {ratio} Normal [facility] Comment on above: Performed By: #### A 1C #### [facility] [address] [place] [address] Dr. Ed Carbajal ALP [Catalytic activity/Vol] 126 U/L Critically high 46-116 [facility] Comment on above: Performed By: #### A 1C #### [facility] [address] [place] [address] Dr. Ed Carbajal ALT [Catalytic activity/Vol] 32 U/L Normal 14-59 [facility] Comment on above: Performed By: #### A 1C #### [facility] [address] [place] [address] Dr. Ed Carbajal Anion gap [Moles/Vol] 15.5 mmol/L Normal [facility] Comment on above: Performed By: #### A 1C #### [facility] [address] [place] [address] Dr. Ed Carbajal AST [Catalytic activity/Vol] 17 U/L Normal 15-37 [facility] Comment on above: Performed By: #### A 1C #### [facility] [address] [address] [address] Ed Carbajal Bilirubin [Mass/Vol] 0.4 mg/dL Normal 0.2-1.0 [facility] Comment on above: Performed By: #### A 1C #### [facility] [address] [address] [address] Ed Carbajal Calcium [Mass/Vol] 11.5 mg/dL Critically high 8.5-10.1 [facility] Comment on above: Performed By: #### A 1C #### [facility] [address] [address] [address] Ed Carbajal Chloride [Moles/Vol] 97 mmol/L Critically low 98-107 [facility] Comment on above: Performed By: #### A 1C #### [facility] [address] [address] [address] Ed Carbajal CO2 [Moles/Vol] 31.2 mmol/L Normal 21.0-32.0 [facility] Comment on above: Performed By: #### A 1C #### [facility] [address] [address] [address] Ed Carbajal Creatinine [Mass/Vol] 1.69 mg/dL Critically high 0.55-1.02 [facility] Comment on above: Performed By: #### A 1C #### [facility] [address] [address] [address] Ed Carbajal EGFR-AF URUGUAYAN 36 mL/min/1.73m2 Critically low >=60 [facility] Comment on above: Performed By: #### A 1C #### [facility] [address] [address] [address] Ed Carbajal EGFR-NON AF URUGUAYAN 29 mL/min/1.73m2 Critically low >=60 [facility] Comment on above: Performed By: #### A 1C #### [facility] [address] [address] [address] Ed Carbajal Globulin (S) [Mass/Vol] 4.4 g/dL Normal [facility] Comment on above: Performed By: #### A 1C #### [facility] [address] [address] [address] Ed Carbajal Glucose [Mass/Vol] 210 mg/dL Critically high 74-106 [facility] Comment on above: Performed By: #### A 1C #### [facility] [address] [address] [address] Ed Carbajal Potassium [Moles/Vol] 3.7 mmol/L Normal 3.5-5.1 [facility] Comment on above: Performed By: #### A 1C #### [facility] [address] [address] [address] Ed Carbajal Protein [Mass/Vol] 8.1 g/dL Normal 6.4-8.2 [facility] Comment on above: Performed By: #### A 1C #### [facility] [address] [address] [address] Ed Carbajal Sodium [Moles/Vol] 140 mmol/L Normal 136-145 [facility] Comment on above: Performed By: #### A 1C #### [facility] [address] [address] [address] Ed Carbajal Urea nitrogen [Mass/Vol] 36.0 mg/dL Critically high 7.0-18.0 [facility] Comment on above: Performed By: #### A 1C #### [facility] [address] [place] [address] Dr. Ed Carbajal Urea nitrogen/Creatinine [Mass ratio] 21.3 mg/mg Normal [facility] Comment on above: Performed By: #### A 1C #### [facility] [address] [place] [address] Dr. Ed Carbajal TSHon 11-05-2022 TSH 2.517 uIU/mL Normal 0.358-3.740 [facility] Comment on above: Performed By: #### A 1C #### [facility] [address] [place] [address] Dr. Ed Carbajal URINE T PROTEIN CREAT RATIOo n 11-05-2022 Protein (U) [Mass/Vol] 12.8 mg/dL Critically high <=12.0 [facility] Comment on above: Performed By: #### A 1C #### [facility] [address] [address] [address] Ed Carbajal UR PROT CREAT RAT 0.35 Normal [facility] Comment on above: Performed By: #### A 1C #### [facility] [address] [address] [address] Ed Carbajal URINE CREAT 36.93 mg/dL Normal 20.00-300.00 [facility] Comment on above: Performed By: #### A 1C #### [facility] [address] [place] [address] Dr. Ed Carbajal GLYCOHEMOGLOBIN A1Con 2022 ADA RECOMMENDATION SEE BELOW Normal [facility] Comment on above: Result Comment: ADA RECOMMENDED LIMIT 4.0 - 6.0 ADA THERAPEUTIC TARGET < 7.0 ACTION SUGGESTED > 7.0 Performed By: #### A 1C #### [facility] [address] [place] [address] Dr. Ed Carbajal Glucose [Mass/Vol] 154 mg/dL Normal [facility] Comment on above: Performed By: #### A 1C #### [facility] [address] [place] [address] Dr. Ed Carbajal HbA1c (Bld) [Mass fraction] 7.0 % Critically high 4.5-6.2 [facility] Comment on above: Performed By: #### A 1C #### [facility] [address] [place] [address] Dr. Ed Carbajal PROF CHEM 8 (BAS METB)on Anion gap [Moles/Vol] 13.8 mmol/L Normal [facility] Comment on above: Performed By: #### A 1C #### [facility] [address] [place] [address] Dr. Ed Carbajal Calcium [Mass/Vol] 10.4 mg/dL Critically high 8.5-10.1 [facility] Comment on above: Performed By: #### A 1C #### [facility] [address] [place] [address] Dr. Ed Carbajal Chloride [Moles/Vol] 97 mmol/L Critically low 98-107 [facility] Comment on above: Performed By: #### A 1C #### [facility] [address] [address] [address] Ed Carbajal CO2 [Moles/Vol] 28.0 mmol/L Normal 21.0-32.0 [facility] Comment on above: Performed By: #### A 1C #### [facility] [address] [address] [address] Ed Carbajal Creatinine [Mass/Vol] 1.32 mg/dL Critically high 0.55-1.02 [facility] Comment on above: Performed By: #### A 1C #### [facility] [address] [place] [address] Dr. Ed Carbajal EGFR-AF URUGUAYAN 47 mL/min/1.73m2 Critically low >=60 [facility] Comment on above: Performed By: #### A 1C #### [facility] [address] [place] [address] Dr. Ed Carbajal EGFR-NON AF URUGUAYAN 39 mL/min/1.73m2 Critically low >=60 [facility] Comment on above: Performed By: #### A 1C #### [facility] [address] [place] [address] Dr. Ed Carbajal Glucose [Mass/Vol] 184 mg/dL Critically high 74-106 T [facility] Comment on above: Performed By: #### A 1C #### [facility] [address] [place] [address] Dr. Ed Carbajal Potassium [Moles/Vol] 3.8 mmol/L Normal 3.5-5.1 [facility] Comment on above: Performed By: #### A 1C #### [facility] [address] [address] [address] Ed Carbajal Sodium [Moles/Vol] 135 mmol/L Critically low 136-145 [facility] Comment on above: Performed By: #### A 1C #### [facility] [address] [place] [address] Dr. Ed Carbajal Urea nitrogen [Mass/Vol] 27.0 mg/dL Critically high 7.0-18.0 [facility] Comment on above: Performed By: #### A 1C #### [facility] [address] [place] [address] Dr. Ed Carbajal Urea nitrogen/Creatinine [Mass ratio] 20.5 mg/mg Normal [facility] Comment on above: Performed By: #### A 1C #### [facility] [address] [place] [address] Dr. Ed Carbajal URINE T PROTEIN CREAT RATIOo n 08-07-2022 Protein (U) [Mass/Vol] 5.5 mg/dL Normal <=12.0 [facility] Comment on above: Performed By: #### U RTPCR #### [facility] [address] [place] [address] Dr. Ed Carbajal UR PROT CREAT RAT 0.32 Normal [facility] Comment on above: Performed By: #### U RTPCR #### [facility] [address] [place] [address] Dr. Ed Carbajal URINE CREAT 17.25 mg/dL Critically low 20.00-300.00 [facility] Comment on above: Performed By: #### U RTPCR #### [facility] [address] [place] [address] Dr. Ed Carbajal CBC AUTO DIFFon 05-04-2022 BASO # 0.1 103/ul Normal 0.0-0.1 [facility] Comment on above: Performed By: #### C BC #### [facility] [address] [place] [address] Dr. Ed Carbajal Basophils/100 WBC (Bld) 0.9 % Normal 0.2-2.0 [facility] Comment on above: Performed By: #### C BC #### [facility] [address] [place] [address] Dr. Ed Carbajal EO # 0.4 103/ul Normal 0.0-0.7 [facility] Comment on above: Performed By: #### C BC #### [facility] [address] [place] [address] Dr. Ed Carbajal Eosinophils/100 WBC (Bld) 3.7 % Normal 0.9-7.0 [facility] Comment on above: Performed By: #### C BC #### [facility] [address] [place] [address] Dr. Ed Carbajal Erythrocyte distribution width (RBC) [Ratio] 14.6 % Normal 11.0-15.0 [facility] Comment on above: Performed By: #### C BC #### [facility] [address] [place] [address] Dr. Ed Carbajal Hematocrit (Bld) [Volume fraction] 40.1 % Normal 36.0-48.0 [facility] Comment on above: Performed By: #### C BC #### [facility] [address] [place] [address] Dr. Ed Carbajal Hemoglobin (Bld) [Mass/Vol] 12.8 g/dL Normal 12.0-16.0 [facility] Comment on above: Performed By: #### C BC #### [facility] [address] [place] [address] Dr. Ed Carbajal IG # 0.03 10e3/ul Normal 0.00-0.03 [facility] Comment on above: Performed By: #### C BC #### [facility] [address] [place] [address] Dr. Ed Carbajal IG % 0.3 % Normal 0.0-0.5 [facility] Comment on above: Performed By: #### C BC #### [facility] [address] [place] [address] Dr. Ed Carbajal LYMPH # 1.8 103/ul Normal 1.2-3.8 [facility] Comment on above: Performed By: #### C BC #### [facility] [address] [place] [address] Dr. Ed Carbajal Lymphocytes/100 WBC (Bld) 18.0 % Critically low 20.5-60.0 [facility] Comment on above: Performed By: #### C BC #### [facility] [address] [place] [address] Dr. Ed Carbajal MANUAL DIFF REQ NO Normal [facility] Comment on above: Performed By: #### C BC #### [facility] [address] [address] [address] Ed Carbajal MCH (RBC) [Entitic mass] 28.0 pg Normal 26.7-34.0 [facility] Comment on above: Performed By: #### C BC #### [facility] [address] [place] [address] Dr. Ed Carbajal MCHC (RBC) [Mass/Vol] 31.9 g/dL Normal 29.9-35.2 [facility] Comment on above: Performed By: #### C BC #### [facility] [address] [place] [address] Dr. Ed Carbajal MCV (RBC) [Entitic vol] 87.7 fL Normal 81.0-99.0 [facility] Comment on above: Performed By: #### C BC #### [facility] [address] [place] [address] Dr. Ed Carbajal MONO # 0.6 103/ul Normal 0.3-0.8 [facility] Comment on above: Performed By: #### C BC #### [facility] [address] [place] [address] Dr. Ed Carbajal Monocytes/100 WBC (Bld) 6.0 % Normal 1.7-12.0 [facility] Comment on above: Performed By: #### C BC #### [facility] [address] [place] [address] Dr. Ed Carbajal NEUT # 7.0 103/ul Critically high 1.4-6.5 [facility] Comment on above: Performed By: #### C BC #### [facility] [address] [place] [address] Dr. Ed Carbajal Neutrophils/100 WBC (Bld) 71.1 % Normal 43.0-75.0 [facility] Comment on above: Performed By: #### C BC #### [facility] [address] [place] [address] Dr. Ed Carbajal Platelet mean volume (Bld) [Entitic vol] 10.8 fL Normal 9.5-13.5 [facility] Comment on above: Performed By: #### C BC #### [facility] [address] [place] [address] Dr. Ed Carbajal PLT 272 103/ul Normal 150-450 [facility] Comment on above: Performed By: #### C BC #### [facility] [address] [place] [address] Dr. Ed Carbajal RBC 4.57 106/ul Normal 4.20-5.40 [facility] Comment on above: Performed By: #### C BC #### [facility] [address] [place] [address] Dr. Ed Carbajal WBC 9.8 103/ul Normal 4.0-11.0 [facility] Comment on above: Performed By: #### C BC #### [facility] [address] [place] [address] Dr. Ed Carbajal GLYCOHEMOGLOBIN A1Con 2021 ADA RECOMMENDATION SEE BELOW Normal [facility] Comment on above: Result Comment: ADA RECOMMENDED LIMIT 4.0 - 6.0 ADA THERAPEUTIC TARGET < 7.0 ACTION SUGGESTED > 7.0 Performed By: #### A 1C #### [facility] [address] [place] [address] Dr. Ed Carbajal Glucose [Mass/Vol] 154 mg/dL Normal [facility] Comment on above: Performed By: #### A 1C #### [facility] [address] [place] [address] Dr. Ed Carbajal HbA1c (Bld) [Mass fraction] 7.0 % Critically high 4.5-6.2 [facility] Comment on above: Performed By: #### A 1C #### [facility] [address] [place] [address] Dr. Ed Carbajal LIPID PROFILEon 05-04-2022 CHOL-HDL RATIO NORM SEE BELOW Normal [facility] Comment on above: Result Comment: 3.3 - 4.4 LOW RISK 4.4 - 7.1 AVERAGE RISK 7.1 - 11.0 MODERATE RISK >11.0 HIGH RISK Performed By: #### C MP, TSH, LIPID #### [facility] [address] [address] [address] Ed Carbajal Cholesterol [Mass/Vol] 143 mg/dL Normal <=200 [facility] Comment on above: Performed By: #### C MP, TSH, LIPID #### [facility] [address] [address] [address] Ed Carbajal Cholesterol in HDL [Mass/Vol] 45 mg/dL Normal 40-60 [facility] Comment on above: Performed By: #### C MP, TSH, LIPID #### [facility] [address] [address] [address] Ed Carbajal Cholesterol in LDL [Mass/Vol] 65.4 mg/dL Normal [facility] Comment on above: Performed By: #### C MP, TSH, LIPID #### [facility] [address] [address] [address] Ed Carbajal Cholesterol.total/Cho lesterol in HDL [Mass ratio] 3.2 {ratio} Normal [facility] Comment on above: Performed By: #### C MP, TSH, LIPID #### [facility] [address] [address] [address] Ed Carbajal HDL NORMAL > or = 60 mg/dl - LOW CARDIOVASCULAR RISK <40 mg/dl - HIGH CARDIOVASCULAR RISK Normal [facility] Comment on above: Performed By: #### C MP, TSH, LIPID #### [facility] [address] [address] [address] Ed Carbajal LDL CALC NORMAL SEE BELOW Normal [facility] Comment on above: Result Comment: <100 mg/dl OPTIMAL 100 - 129 mg/dl NEAR OR ABOVE OPTIMAL 130 - 159 mg/dl BORDERLINE HIGH 160 - 189 mg/dl HIGH >190 mg/dl VERY HIGH Performed By: #### C MP, TSH, LIPID #### [facility] [address] [address] [address] Ed Carbajal Triglyceride [Mass/Vol] 163 mg/dL Critically high <=150 [facility] Comment on above: Performed By: #### C MP, TSH, LIPID #### [facility] [address] [address] [address] Ed Carbajal VLDL CALC 32.6 mg/dL Normal [facility] Comment on above: Performed By: #### C MP, TSH, LIPID #### [facility] [address] [address] [address] Ed Carbajal MG MAMM SCREEN 3D MIRTA CADon 05-04-2022 MG MAMM SCREEN 3D MIRTA CAD Patient: EILEEN GRIJALVA Exam Date: 05/04/2022 : 1945 Gender:F Ordering : SHAIKH Anni OLIVEIRA . Admission #: [id number] Family : Order #: [id number] CLICK HERE TO VIEW EXAM RADIOLOGY REPORT [...] Treatments None Family Cancers None LOCATION: [facility] BREAST COMPOSITION: Scattered areas fibroglandular density. FINDINGS: [...] Muhammad MD on 05/04/2022 at 09:[address] [facility] PROF 14(COMP METB)on 05-04- 022 Albumin [Mass/Vol] 3.6 g/dL Normal 3.4-5.0 [facility] Comment on above: Performed By: #### C MP, TSH, LIPID #### [facility] [address] [address] [address] Ed Carbajal Albumin/Globulin [Mass ratio] 0.9 {ratio} Normal [facility] Comment on above: Performed By: #### C MP, TSH, LIPID #### [facility] [address] [address] [address] Ed Carbajal ALP [Catalytic activity/Vol] 102 U/L Normal 46-116 [facility] Comment on above: Performed By: #### C MP, TSH, LIPID #### [facility] [address] [address] [address] Ed Carbajal ALT [Catalytic activity/Vol] 30 U/L Normal 14-59 [facility] Comment on above: Performed By: #### C MP, TSH, LIPID #### [facility] [address] [address] [address] Ed Carbajal Anion gap [Moles/Vol] 11.1 mmol/L Normal [facility] Comment on above: Performed By: #### C MP, TSH, LIPID #### [facility] [address] [address] [address] Ed Carbajal AST [Catalytic activity/Vol] 17 U/L Normal 15-37 [facility] Comment on above: Performed By: #### C MP, TSH, LIPID #### [facility] [address] [address] [address] Ed Carbajal Bilirubin [Mass/Vol] 0.5 mg/dL Normal 0.2-1.0 [facility] Comment on above: Performed By: #### C MP, TSH, LIPID #### [facility] [address] [address] [address] Ed Carbajal Calcium [Mass/Vol] 10.4 mg/dL Critically high 8.5-10.1 [facility] Comment on above: Performed By: #### C MP, TSH, LIPID #### [facility] [address] [address] [address] Ed Carbajal Chloride [Moles/Vol] 99 mmol/L Normal 98-107 [facility] Comment on above: Performed By: #### C MP, TSH, LIPID #### [facility] [address] [address] [address] Ed Carbajal CO2 [Moles/Vol] 32.4 mmol/L Critically high 21.0-32.0 [facility] Comment on above: Performed By: #### C MP, TSH, LIPID #### [facility] [address] [place] [address] Dr. Ed Carbajal Creatinine [Mass/Vol] 1.61 mg/dL Critically high 0.55-1.02 [facility] Comment on above: Performed By: #### C MP, TSH, LIPID #### [facility] [address] [place] [address] Dr. Ed Carbajal EGFR-AF URUGUAYAN 38 mL/min/1.73m2 Critically low >=60 [facility] Comment on above: Performed By: #### C MP, TSH, LIPID #### [facility] [address] [place] [address] Dr. Ed Carbajal EGFR-NON AF URUGUAYAN 31 mL/min/1.73m2 Critically low >=60 [facility] Comment on above: Performed By: #### C MP, TSH, LIPID #### [facility] [address] [place] [address] Dr. Ed Carbajal Globulin (S) [Mass/Vol] 4.2 g/dL Normal [facility] Comment on above: Performed By: #### C MP, TSH, LIPID #### [facility] [address] [place] [address] Dr. Ed Carbajal Glucose [Mass/Vol] 130 mg/dL Critically high 74-106 T [facility] Comment on above: Performed By: #### C MP, TSH, LIPID #### [facility] [address] [place] [address] Dr. Ed Carbajal Potassium [Moles/Vol] 3.5 mmol/L Normal 3.5-5.1 [facility] Comment on above: Performed By: #### C MP, TSH, LIPID #### [facility] [address] [place] [address] Dr. Ed Carbajal Protein [Mass/Vol] 7.8 g/dL Normal 6.4-8.2 [facility] Comment on above: Performed By: #### C MP, TSH, LIPID #### [facility] [address] [place] [address] Dr. Ed Carbajal Sodium [Moles/Vol] 139 mmol/L Normal 136-145 [facility] Comment on above: Performed By: #### C MP, TSH, LIPID #### [facility] [address] [place] [address] Dr. Ed Carbajal Urea nitrogen [Mass/Vol] 39.0 mg/dL Critically high 7.0-18.0 [facility] Comment on above: Performed By: #### C MP, TSH, LIPID #### [facility] [address] [address] [address] Ed Carbajal Urea nitrogen/Creatinine [Mass ratio] 24.2 mg/mg Normal [facility] Comment on above: Performed By: #### C MP, TSH, LIPID #### [facility] [address] [place] [address] Dr. Ed Carbajal TSHon 05-04-2022 TSH 3.236 uIU/mL Normal 0.358-3.740 [facility] Comment on above: Performed By: #### C MP, TSH, LIPID #### [facility] [address] [place] [address] Dr. Ed Carbajal GLYCOHEMOGLOBIN A1Con 2021 ADA RECOMMENDATION SEE BELOW Normal [facility] Comment on above: Result Comment: ADA RECOMMENDED LIMIT 4.0 - 6.0 ADA THERAPEUTIC TARGET < 7.0 ACTION SUGGESTED > 7.0 Performed By: #### A 1C #### [facility] [address] [place] [address] Dr. Ed Carbajal Glucose [Mass/Vol] 160 mg/dL Normal [facility] Comment on above: Performed By: #### A 1C #### [facility] [address] [place] [address] Dr. Ed Carbajal HbA1c (Bld) [Mass fraction] 7.2 % Critically high 4.5-6.2 [facility] Comment on above: Performed By: #### A 1C #### [facility] [address] [place] [address] Dr. Ed Carbajal Vital Signs Date Time Vital Sign Value Performing Clinician Anushai madi 04-09-2024 10:23-0400 Body height 165.1 cm Carin Holguinpatrick [employer] Work Phone: [facility] 04-09-2024 10:23-0400 Body mass index (BMI) [Ratio] 40.6 kg/m2 Carin Holguinpatrick [employer] Work Phone: [facility] 04-09-2024 10:23-0400 Body temperature 97.9 [degF] Carin Holguinpatrick [employer] Work Phone: [facility] 04-09-2024 10:23-0400 Body weight 110.68 kg Carin Holguinpatrick [employer] Work Phone: [facility] 04-09-2024 10:23-0400 Diastolic blood pressure 72 mm[Hg] Carin Brown [employer] Work Phone: [facility] 04-09-2024 10:23-0400 Heart rate 108 /min Carin Holguinpatrick [employer] Work Phone: [facility] 04-09-2024 10:23-0400 Respiratory rate 16 /min Carin Brown [employer] Work Phone: [facility] 04-09-2024 10:23-0400 SaO2% (BldA) [Mass fraction] 97 % Carin Moultonzpatrick [employer] Work Phone: [facility] 04-09-2024 10:23-0400 Systolic blood pressure 170 mm[Hg] Carin Brown [employer] Work Phone: [facility] Encounters Encounter Date Encounter Type Care Provider Facility Start: 05-26-2024 End: 05-27-2024 Refill Hilda P[facility] Comment on above: Type 2 diabetes aruna itus with stage 3a chronic kidney disease, with long-term current use of insulin ([facility]) ([facility]) Start: 05-13-2024 End: 05-13-2024 Refill Hilda [facility] Comment on above: Type 2 diabetes aruna itus with stage 3a chronic kidney disease, with long-term current use of insulin ([facility]) (CMS/HCC) Start: 05-11-2024 End: 05-11-2024 Refill Carin Moultonzpatrick [employer] Work Phone: [facility] Comment on above: Primary hypertension (CMS/HCC) Start: 04-09-2024 End: 04-09-2024 Bamboo flowsheet Carin Brown [employer] Work Phone: [facility] Start: 04-09-2024 End: 04-09-2024 Bamboo flowsheet Carin Brown [employer] Work Phone: [facility] Start: 04-09-2024 End: 04-09-2024 Office outpatient visit 25 minutes Carin Ortiztrick [employer] Work Phone: [facility] Comment on above: Primary hypertension (CMS/HCC) (Primary Dx); Stage 3a chronic kidney disease (HCC) (CMS/HCC); Type 2 diabetes mellitus with stage 3a chronic kidney disease, with long-term current use of insulin (HCC) (CMS/HCC); CKD stage 3b, GFR 30-44 ml/min (CMS/HCC); Other hyperlipidemia (CMS/HCC); Body mass index (BMI) 40.0-44.9, adult (CMS/HCC) Start: 04-09-2024 End: 04-09-2024 ambulatory CARIN BROWN Not Available Start: 04-07-2024 End: 04-07-2024 Clinisync Result Encounter Shaikh Roxanne ESCALANTE Work Phone: [facility] Unsolicited Start: 04-07-2024 End: 04-07-2024 Clinisync Result Encounter Shaikh Roxanne ESCALANTE Work Phone: [facility] Unsolicited Start: 12-17-2023 End: 12-17-2023 ambulatory SHAIKH ROXANNE Not Available Start: 11-04-2023 End: 11-04-2023 ambulatory SHAIKH ROXANNE Not Available Start: 09-24-2023 Patient encounter procedure Shaikh Roxanne ESCALANTE Work Phone: [facility] Start: 09-24-2023 End: 09-24-2023 ambulatory SHAIKH ROXANNE Not Available Start: 06-18-2023 End: 06-18-2023 ambulatory SHAIKH ROXANNE Not Available Start: 11-05-2022 End: 11-06-2022 ambulatory SHAIKH Frandy OLIVEIRA Facility:[facility] Start: 08-07-2022 End: 08-08-2022 ambulatory SHAIKH Frandy OLIVEIRA Facility:[facility] Start: 05-04-2022 End: 05-05-2022 ambulatory SHAIKH Frandy OLIVEIRA Facility:[facility] Start: 01-01-2022 End: 01-02-2022 ambulatory SHAIKH Frandy OLIVEIRA Facility: Procedures Date Procedure Procedure Detail Performing Clinician Start: 04-07-2024 ALL LIPID PROFILE (FASTING) Shaikh Roxanne ESCALANTE Work Phone: Start: 04-07-2024 [facility] CMP (CMP) (FOR [facility] USE) Shaikh Roxanne ESCALANTE Work Phone: Start: 04-07-2024 MLR HEMOGLOBIN A1C Mannie Oliveira MD Work Phone: Plan of Treatment Date Care Activity Detail Author Start: 12-26-2025 Glaucoma screening Diabetes: R etinopathy Screening [facility] Start: 09-23-2024 Medicare Annual Wellness (AWV) Medicare Annual Wellness (AWV) [facility] Start: 07-20-2024 End: 07-20-2024 Patient encounter procedure 07/20/2024 10:30 AM EST Office Visit [facility] [address] [place] [id number] Carin Brown NP [address] [place] [phone] [facility] Start: 07-10-2024 End: 04-09-2025 CBC W Auto Differential panel - Blood CBC and differential Lab Routine Primary hypertension (CMS/HCC) Type 2 diabetes mellitus with stage 3a chronic kidney disease, with long-term current use of insulin (HCC) ([facility]) CKD stage 3b, GFR 30-44 ml/min ([facility]) Expected: 07/10/2024 (Approximate), Expires: 04/09/2025 [facility] Comment on above: Expected: 07/10/2024 (Approximate), Expires: 04/09/2025 Start: 07-10-2024 End: 04-09-2025 Comprehensive metabolic 2000 panel - Serum or Plasma Comprehensive metabolic panel Lab Routine Primary hypertension ([facility]) Type 2 diabetes mellitus with stage 3a chronic kidney disease, with long-term current use of insulin (HCC) ([facility]) CKD stage 3b, GFR 30-44 ml/min ([facility]) Expected: 07/10/2024 (Approximate), Expires: 04/09/2025 [facility] Comment on above: Expected: 07/10/2024 (Approximate), Expires: 04/09/2025 Start: 07-10-2024 End: 04-09-2025 Hemoglobin A1c/Hemoglobin.total in Blood Hemoglobin A1c Lab Routine Type 2 diabetes mellitus with stage 3a chronic kidney disease, with long-term current use of insulin (HCC) ([facility]) Expected: 07/10/2024 (Approximate), Expires: 04/09/2025 [facility] Comment on above: Expected: 07/10/2024 (Approximate), Expires: 04/09/2025 Start: 07-10-2024 End: 04-09-2025 Lipid 1996 panel - Serum or Plasma Lipid panel Lab Routine Other hyperlipidemia ([facility]) Expected: 07/10/2024 (Approximate), Expires: 04/09/2025 [facility] Comment on above: Expected: 07/10/2024 (Approximate), Expires: 04/09/2025 Start: 07-10-2024 End: 04-09-2025 Microalbumin/Creatinine panel in random Urine Microalbumin / creatinine urine ratio Lab Routine Primary hypertension ([facility]) Type 2 diabetes mellitus with stage 3a chronic kidney disease, with long-term current use of insulin (HCC) ([facility]) CKD stage 3b, GFR 30-44 ml/min ([facility]) Expected: 07/10/2024 (Approximate), Expires: 04/09/2025 [facility] Work Phone: Comment on above: Expected: 07/10/2024 (Approximate), Expires: 04/09/2025 Start: 06-20-2024 Urine screening for protein Diabetes: Urine Protein Screening [facility] Start: 06-18-2024 Pneumococcal Vaccine : 65+ Years (1 of 2 - PCV) Pneumococcal Vaccine: 65+ Years (1 of 2 - PCV) [facility] Comment on above: Postponed from 06/14 (Patient Refused) Start: 04-09-2024 End: 04-09-2024 Patient encounter procedure [facility] Comment on above: Primary hypertension (CMS/HCC) (Primary Dx); Stage 3a chronic kidney disease (HCC) (CMS/HCC); Type 2 diabetes mellitus with stage 3a chronic kidney disease, with long-term current use of insulin (HCC) ([facility]/HCC) Start: 03-08-2024 Influenza vaccination Influenza Vacc ine (#1) [facility] Start: 01-16-2024 Hemoglobin A1c measurement Diabetes: Hemoglobin A1C [facility] Payers Date Payer Category Payer Private Health Insurance [employer] [id number] 2021 Unknown [employer] [id number] 2021-Present [address] [place] [address] [id number] 2011 Medicare [id number] 1959 Medicare [id number] 1959 Unknown [id number] 1946 Unknown [id number] 1946 Unknown [id number] [id number] 1946 Unknown [id number] [id number] 1946 Unknown [id number] 593 1946 Unknown [id number] 1259 1946 Unknown [id number] 1259 1946 Unknown [id number] 1259 1946 Unknown [id number] 1259 1946 Unknown [id number] 1259 Social History Date Type Detail Facility Start: 11-04-2023 Tobacco smoking stat [facility] Never smoked tobacco [facility] Start: 11-04-2023 Tobacco use and exposure Smoke less tobacco non-user [facility] Start: 12-17-2023 End: 04-09-2024 Alcoholic beverage intake Lifetime non-drinker (finding) [facility] Start: 06-17-2023 End: 12-17-2023 History of Social function [facility] Start: 06-17-2023 End: 12-17-2023 Humiliation, Afraid, Rape, and Kick questionnaire [HARK] [facility] Within the last year , have you been afraid of your partner or ex-partner? Patient declined [facility] Do you belong to any clubs or organizations such as anabaptism groups, unions, fraternal or athletic groups, or school groups? No [facility] Are you now , , , , never or living with a partner? [facility] How often to you hav e a drink containing alcohol? Never [facility] Do you feel stress - tense, restless, nervous, or anxious, or unable to sleep at night because your mind is troubled all the time - these days [OSQ] Not at all [facility] (I/We) worried wheth er (my/our) food would run out before (I/we) got money to buy more. Never true [facility] Start: 1945 Sex assigned at Not on file [facility] NEGATED: Highlighted rowStart: NINF History of tobacco use Passive smoker [facility] Medical Equipment Procedure Code Equipment Code Equipment Original Text Equi pment Identifier Dates Clinical Notes 04-09-2024 to 05-26-2024 Telephone Encounter - Hilda Jimenez MA - 05/26/2024 3:16 PM ESTTelephone Encounter - Hilda Jimenez MA - 05/26/2024 3:16 PM ESTTelephone Encounter - Hilda Jimenez MA - 05/13/2024 10:33 AM EST Note Date & Type Note Facility 05-26-2024 Telephone encounter Note Form atting of this note might be different from the original. ERICA:04/09/2024 NOV:07/20/2024 [facility] 05-26-2024 Miscellaneous Notes Formattin g of this note might be different from the original. ERICA:04/09/2024 NOV:07/20/2024 documented in this encounter [facility] 05-13-2024 Telephone encounter Note Form atting of this note might be different from the original. ERICA:04/09/2024 NOV:07/20/2023 [facility] 05-13-2024 Miscellaneous Notes Formattin g of this note might be different from the original. ERICA:04/09/2024 NOV:07/20/2023 documented in this encounter [facility] 05-11-2024 Evaluation note Diagnosis Primary hypertension (CMS/HCC)- Primary Unspecified essential hypertension Type 2 diabetes mellitus with stage 3a chronic kidney disease, with long-term current use of insulin (HCC) (CMS/HCC) Other specified hypothyroidism (CMS/HCC) Other hyperlipidemia (CMS/HCC) Stage 3a chronic kidney disease (HCC) ([facility]/HCC) Screening mammogram, encounter for Primary hypertension (CMS/HCC)- Primary Unspecified essential hypertension Type 2 diabetes mellitus with stage 3a chronic kidney disease, with long-term current use of insulin (HCC) (CMS/HCC) Other specified hypothyroidism (CMS/HCC) Stage 3a chronic kidney disease (HCC) ([facility]/HCC) Medicare annual wellness visit, subsequent Primary hypertension (CMS/HCC)- Primary Unspecified essential hypertension Primary hypertension (CMS/HCC)- Primary Unspecified essential hypertension Stage 3a chronic kidney disease (HCC) ([facility]/HCC) Type 2 diabetes mellitus with stage 3a chronic kidney disease, with long-term current use of insulin (HCC) (CMS/HCC) Other specified hypothyroidism (CMS/HCC) Other hyperlipidemia (CMS/HCC) Primary hypertension (CMS/HCC)- Primary Unspecified essential hypertension Stage 3a chronic kidney disease (HCC) ([facility]/HCC) Type 2 diabetes mellitus with stage 3a chronic kidney disease, with long-term current use of insulin (HCC) ([facility]/HCC) CKD stage 3b, GFR 30-44 ml/min (CMS/HCC) Other hyperlipidemia (CMS/HCC) Body mass index (BMI) 40.0-44.9, adult ([facility]) Primary hypertension ([facility]/HCC) Unspecified essential hypertension [id number] History of Present illness Narrative* Carin Brown, MONIQUE - 04/09/2024 11:53 AM EDTAssociated Problem(s): Body mass index (BMI) 40.0-44.9, adult ([facility]/HCC) Discussed with patient their BMI (actual, verses recommended). We have also discussed lifestyle modifications: attempts to perform physical activity as chronic conditions allow, also to monitor dietary intake: increasing protein/fruits/veggies and lowering carb intake (unless contraindicated). Limit sodas, juices, and sugary drinks. Also discussed oral medications that can be utilized for weight loss, as well as surgical options for weight loss. * Carin Brown NP - 04/09/2024 11:00 AM EDTAssociated Problem(s): CKD stage 3b, GFR 30-44 ml/min ([facility]) Likely related to CKD: Currently on ozempic 1mg Had considered Farxiga in past but co-pay was too expensive. Current eGFR 32; * Carin Brown NP - 04/09/2024 10:51 AM EDTAssociated Problem(s): Primary hypertension ([facility]) Currently taking Amlodipine 10mg Losartan 100mg Checks BP at home; Averages are 120-130's; BP is elevated today in office. Pt states she took medication just before leaving for Office Visit. Denies orthostatic changes, dizziness, cough, shortness of breath, swelling in extremities. Continue current regimen. Given BP log, advised pt to record BP and bring log back with them to next visit. * Carin Brown NP - 04/09/2024 10:50 AM EDTAssociated Problem(s): Other hyperlipidemia ([facility]) Currently taking Atorvastatin 20mg Denies any myalgias. Most recent Lipid Panel 04/30; Pt was NOT fasting for labs. Lipid panel likely falsely elevated. Continue current regimen. * Carin Brown NP - 04/09/2024 10:50 AM EDTAssociated Problem(s): Type 2 diabetes mellitus with stage 3a chronic kidney disease, with long-term current use of insulin ([facility]) ([facility]) Ozempic 1mg Glipizide 10mg Metformin 500mg BID Lantus 70 units Humalog 12u in morning and afternoon, and 8 units in evening. Most recent labs: hemoglobin A1C 6.8% Average FSBS range from BGs range between 120 and 150 No episode of hypoglycemia; Checks BG with reader; Discussed continuous BG monitor with pt. Pt not interested at this time. DM Eye Exam: [facility] 2023 No medication adverse effects reported by the patient. Patient educated on lifestyle modifications, dietary restrictions, signs and symptoms of hypoglycemia/hyperglycemia and importance of eating regular consistent meals. Stressed upon importance of checking blood glucose at home and bring blood glucose log to appointments. All questions, concerns answered and addressed. Encouraged to call office if persistent hypoglycemia/hyperglycemia on home glucose monitoring noted. * Carin Brown NP - 04/09/2024 10:30 AM EDT Images from the original note were not included. Subjective Patient ID: Eileen Grijalva is a 78 y.o. female who presents for Med Refill, Hypertension, Hyperlipidemia, and Diabetes. HPI Specialists: Ophthalmology- [facility] HTN: Currently taking Amlodipine 10mg Losartan 100mg Checks BP at home; Averages are 120-130's; BP is elevated today in office. Pt states she took medication just before leaving for Office Visit. Denies orthostatic changes, dizziness, cough, shortness of breath, swelling in extremities. Continue current regimen. Given BP log, advised pt to record BP and bring log back with them to next visit. HLD: Currently taking Atorvastatin 20mg Denies any myalgias. Most recent Lipid Panel 04/30; Pt was NOT fasting for labs. Lipid panel likely falsely elevated. Continue current regimen. Component Ref Range & Units 2 d ago (04/07/24) 2 d ago (04/07/24) 5 mo ago (10/17/23) 5 mo ago (10/17/23) 9 mo ago (06/20/23) 9 mo ago (06/20/23) 9 mo ago (06/20/23) 9 mo ago (06/20/23) TRIGLYCERIDES <=150 mg/dL 208 High 138 R 141 R 24.9 R 37.25 R 173 High 142 R 18.1 Low R CHOLESTEROL <=200 mg/dL 170 4.4 R 4.4 R 0.2 R 155 4.4 R 0.2 R HDL CHOLESTEROL 40 - 60 mg/dL 52 14.4 R 13.1 R 4.9 R 48 CM 14.3 R 6.5 R Comment: > or =60 mg/dl - LOW CARDIOVASCULAR RISK <40 mg/dl - HIGH CARDIOVASCULAR RISK LDL CHOLESTEROL CALCULATED mg/dL 77.0 127 High R 77 R 2.0 R 73.0 CM 108 High R 1.6 R Comment: <100 mg/dl OPTIMAL 100-129 mg/dl NEAR OR ABOVE OPTIMAL 130-159 mg/dl BORDERLINE HIGH 160-189 mg/dl HIGH >190 mg/dl VERY HIGH VLDL CHOLESTEROL mg/dL 41.6 0.4 R 0.4 R 0.6 R 34.6 0.5 R 0.5 R CHOL HDL RATIO 3.3 14 Low R 13 Low R 0.02 R 3.2 CM 16 R 0.02 R Comment: 3.3 - 4.4 LOW RISK 4.4 - 7.1 AVERAGE RISK 7.1 - 11.0 MODERATE RISK >11.0 HIGH RISK ALANINE AMINOTRANSFERASE 25 R 29 R 29 R ALKALINE PHOSPHATASE 124 High R 129 High R 124 High R TOTAL PROTEIN 7.5 R 7.7 R 7.7 R ALBUMIN LEVEL 3.5 R 3.5 R 3.5 R ALBUMIN GLOBULIN RATIO 0.9 0.8 0.8 Resulting Agency [facility] DMII: Ozempic 1mg Glipizide 10mg Metformin 500mg BID Lantus 70 units Humalog 12u in morning and afternoon, and 8 units in evening. Most recent labs: hemoglobin A1C 6.8% Average FSBS range from BGs range between 120 and 150 No episode of hypoglycemia; Checks BG with reader; Discussed continuous BG monitor with pt. Pt not interested at this time. No medication adverse effects reported by the patient. Patient educated on lifestyle modifications, dietary restrictions, signs and symptoms of hypoglycemia/hyperglycemia and importance of eating regular consistent meals. Stressed upon importance of checking blood glucose at home and bring blood glucose log to appointments. All questions, concerns answered and addressed. Encouraged to call office if persistent hypoglycemia/hyperglycemia on home glucose monitoring noted. DM Eye Exam: [facility] 2023 Education: Check blood sugars daily, notify if <70 or >200. Take medications (pills or insulin) as directed. Monitor for s/s of hypoglycemia (sweaty, dizziness, nausea, vomiting, or shakiness). Watch for increase in thirst, urination, or appetite. Inspect feet frequently monitoring for open wounds , andalso recommend yearly eye exam. Pt should attempt to remain as physically active as chronic conditions allow, as well as trying to follow a diet low in carbohydrates, and simple sugars. Pt declines vascular referral at this time. Review of Systems Constitutional: Negative for activity change, appetite change, chills, diaphoresis, fatigue, fever and unexpected weight change. HENT: Negative for congestion, ear pain, rhinorrhea, sinus pressure, sinus pain, sneezing, sore throat, trouble swallowing and voice change. Eyes: Negative for visual disturbance. Respiratory: Negative for cough, chest tightness, shortness of breath and wheezing. Cardiovascular: Negative for chest pain, palpitations and leg swelling. Gastrointestinal: Negative for abdominal distention, abdominal pain, blood in stool, constipation, diarrhea and vomiting. Genitourinary: Negative for decreased urine volume, dysuria, flank pain, frequency, hematuria and urgency. Musculoskeletal: Negative for arthralgias, gait problem, joint swelling and myalgias. Skin: Negative for rash. Neurological: Negative for dizziness, tremors, syncope, weakness, light- headedness and headaches. Psychiatric/Behavioral: Negative for decreased concentration and suicidal ideas. The patient is notnervous/anxious. Hematological: Does not bruise/bleed easily. Endocrine: Negative for cold intolerance, heat intolerance, polydipsia, polyphagia and polyuria. Objective Physical Exam Vitals reviewed. Constitutional: Appearance: Normal appearance. HENT: Head: Normocephalic and atraumatic. Right Ear: Tympanic membrane normal. Left Ear: Tympanic membrane normal. Nose: Nose normal. Mouth/Throat: Mouth: Mucous membranes are moist. Pharynx: Oropharynx is clear. Eyes: Pupils: Pupils are equal, round, and reactive to light. Cardiovascular: Rate and Rhythm: Normal rate and regular rhythm. Pulses: Normal pulses. Heart sounds: Normal heart sounds. Pulmonary: Effort: Pulmonary effort is normal. Breath sounds: Normal breath sounds. Abdominal: General: Abdomen is flat. Bowel sounds are normal. Palpations: Abdomen is soft. Musculoskeletal: General: Normal range of motion. Cervical back: Normal range of motion. Right lower leg: Edema present. Left lower leg: Edema present. Comments: Vascular changes noted to BLE Skin: General: Skin is warm and dry. Capillary Refill: Capillary refill takes less than 2 seconds. Neurological: General: No focal deficit present. Mental Status: She is alert and oriented to person, place, and time. Psychiatric: Mood and Affect: Mood normal. Behavior: Behavior normal. Assessment/Plan Problem List Items Addressed This Visit Type 2 diabetes mellitus with stage 3a chronic kidney disease, with long-term current use of insulin ([facility]) ([facility]) Ozempic 1mg Glipizide 10mg Metformin 500mg BID Lantus 70 units Humalog 12u in morning and afternoon, and 8 units in evening. Most recent labs: hemoglobin A1C 6.8% Average FSBS range from BGs range between 120 and 150 No episode of hypoglycemia; Checks BG with reader; Discussed continuous BG monitor with pt. Pt not interested at this time. DM Eye Exam: [facility] 2023 No medication adverse effects reported by the patient. Patient educated on lifestyle modifications, dietary restrictions, signs and symptoms of hypoglycemia/hyperglycemia and importance of eating regular consistent meals. Stressed upon importance of checking blood glucose at home and bring blood glucose log to appointments. All questions, concerns answered and addressed. Encouraged to call office if persistent hypoglycemia/hyperglycemia on home glucose monitoring noted. Relevant Orders Microalbumin / creatinine urine ratio Hemoglobin A1c Comprehensive metabolic panel CBC and differential Other hyperlipidemia ([facility]) Currently taking Atorvastatin 20mg Denies any myalgias. Most recent Lipid Panel 04/30; Pt was NOT fasting for labs. Lipid panel likely falsely elevated. Continue current regimen. Relevant Orders Lipid panel Primary hypertension ([facility]) - Primary Currently taking Amlodipine 10mg Losartan 100mg Checks BP at home; Averages are 120-130's; BP is elevated today in office. Pt states she took medication just before leaving for Office Visit. Denies orthostatic changes, dizziness, cough, shortness of breath, swelling in extremities. Continue current regimen. Given BP log, advised pt to record BP and bring log back with them to next visit. Relevant Orders Microalbumin / creatinine urine ratio Comprehensive metabolic panel CBC and differential Stage 3a chronic kidney disease ([facility]) ([facility]) CKD stage 3b, GFR 30-44 ml/min ([facility]) Likely related to CKD: Currently on ozempic 1mg Had considered Farxiga in past but co-pay was too expensive. Current eGFR 32; Relevant Orders Ambulatory referral to Nephrology Microalbumin / creatinine urine ratio Comprehensive metabolic panel CBC and differential Body mass index (BMI) 40.0-44.9, adult ([facility]) Discussed with patient their BMI (actual, verses recommended). We have also discussed lifestyle modifications: attempts to perform physical activity as chronic conditions allow, also to monitor dietary intake: increasing protein/fruits/veggies and lowering carb intake (unless contraindicated). Limit sodas, juices, and sugary drinks. Also discussed oral medications that can be utilized for weight loss, as well as surgical options for weight loss. [id number] Instructions* Patient Instructions* Carin Brown NP - 04/09/2024 10:30 AM EDT Wear Compression socks DAILY!!!! Referral sent to Nephrology for Kidney Disease- Dr. Kumari; they will call you. If you don't hear from them in 2 weeks, call my office! Your blood pressure is TOO HIGH in the office today. Check your blood pressure at home 3 times per week, preferably in the afternoon. Goal <130/90. Record results in blood pressure log. Bring back with you to your next visit. FASTING labs ordered. Nothing to eat or drink for 12 hours prior to blood draw. Water and black coffee ok. Education: Check blood sugars daily, notify if <70 or >200. Take medications (pills or insulin) as directed. Monitor for s/s of hypoglycemia (sweaty, dizziness, nausea, vomiting, or shakiness). Watch for increase in thirst, urination, or appetite. Inspect feet frequently monitoring for open wounds , andalso recommend yearly eye exam. Pt should attempt to remain as physically active as chronic conditions allow, as well as trying to follow a diet low in carbohydrates, and simple sugars. Diet: Eat three meals per day. Breakfast, lunch, and dinner. Avoid snacking. Avoid eating after 5/6pm. Daily protein GOAL 35% of your intake; 30g per meal. Daily calorie GOAL 1,800-2,000 per day. Consider tracking your food intake on MyFtinessPal or LoseIt Water: Increase water intake; GOAL 64-80oz of water per day. Exercise: Increase activity. GOAL 30 minutes, 5 days per week. START SLOW. Start with 5 minutes, 5 days per week. Then increase to 10 days, 5 days per week. Continue to increase until you reach the goal. Increase steps; GOAL 10,000 steps per day. Be sure to get adequate sleep; GOAL 6-8 hours of sleep per night. [facility] Diagnosis Primary hypertension ([facility]/HCC)- Primary Unspecified essential hypertension Stage 3a chronic kidney disease (HCC) ([facility]/HCC) Type 2 diabetes mellitus with stage 3a chronic kidney disease, with long-term current use of insulin (HCC) ([facility]/HCC) CKD stage 3b, GFR 30-44 ml/min (CMS/HCC) Other hyperlipidemia (CMS/HCC) Body mass index (BMI) 40.0-44.9, adult ([facility]) documented in this encounter [facility] HealthcareEvaluation note* Diagnosis Primary hypertension ([facility]/HCC)- Primary Unspecified essential hypertension Type 2 diabetes mellitus with stage 3a chronic kidney disease, with long-term current use of insulin (HCC) (CMS/HCC) Other specified hypothyroidism (CMS/HCC) Other hyperlipidemia (CMS/HCC) Stage 3a chronic kidney disease (HCC) ([facility]/HCC) Screening mammogram, encounter for Primary hypertension ([facility]/HCC)- Primary Unspecified essential hypertension Type 2 diabetes mellitus with stage 3a chronic kidney disease, with long-term current use of insulin (HCC) (CMS/HCC) Other specified hypothyroidism (CMS/HCC) Stage 3a chronic kidney disease (HCC) (CMS/HCC) Medicare annual wellness visit, subsequent Primary hypertension (CMS/HCC)- Primary Unspecified essential hypertension Primary hypertension (CMS/HCC)- Primary Unspecified essential hypertension Stage 3a chronic kidney disease (HCC) (CMS/HCC) Type 2 diabetes mellitus with stage 3a chronic kidney disease, with long-term current use of insulin (HCC) (CMS/HCC) Other specified hypothyroidism (CMS/HCC) Other hyperlipidemia (CMS/HCC) Primary hypertension (CMS/HCC)- Primary Unspecified essential hypertension Stage 3a chronic kidney disease (HCC) (CMS/HCC) Type 2 diabetes mellitus with stage 3a chronic kidney disease, with long-term current use of insulin (HCC) (CMS/HCC) CKD stage 3b, GFR 30-44 ml/min (CMS/HCC) Other hyperlipidemia (CMS/HCC) Body mass index (BMI) 40.0-44.9, adult (CMS/HCC) Type 2 diabetes mellitus with stage 3a chronic kidney disease, with long-term current use of insulin (HCC) (CMS/HCC) documented in this encounter [facility] HealthcareEvaluation note* Diagnosis Primary hypertension (CMS/HCC)- Primary Unspecified essential hypertension Type 2 diabetes mellitus with stage 3a chronic kidney disease, with long-term current use of insulin (HCC) (CMS/HCC) Other specified hypothyroidism (CMS/HCC) Other hyperlipidemia (CMS/HCC) Stage 3a chronic kidney disease (HCC) (CMS/HCC) Screening mammogram, encounter for Primary hypertension (CMS/HCC)- Primary Unspecified essential hypertension Type 2 diabetes mellitus with stage 3a chronic kidney disease, with long-term current use of insulin (HCC) (CMS/HCC) Other specified hypothyroidism (CMS/HCC) Stage 3a chronic kidney disease (HCC) (CMS/HCC) Medicare annual wellness visit, subsequent Primary hypertension (CMS/HCC)- Primary Unspecified essential hypertension Primary hypertension (CMS/HCC)- Primary Unspecified essential hypertension Stage 3a chronic kidney disease (HCC) (CMS/HCC) Type 2 diabetes mellitus with stage 3a chronic kidney disease, with long-term current use of insulin (HCC) (CMS/HCC) Other specified hypothyroidism (CMS/HCC) Other hyperlipidemia (CMS/HCC) Primary hypertension (CMS/HCC)- Primary Unspecified essential hypertension Stage 3a chronic kidney disease (HCC) (CMS/HCC) Type 2 diabetes mellitus with stage 3a chronic kidney disease, with long-term current use of insulin (HCC) (CMS/HCC) CKD stage 3b, GFR 30-44 ml/min (CMS/HCC) Other hyperlipidemia (CMS/HCC) Body mass index (BMI) 40.0-44.9, adult (CMS/HCC) Type 2 diabetes mellitus with stage 3a chronic kidney disease, with long-term current use of insulin (HCC) (CMS/HCC) documented in this encounter [facility] Consultation (Routine) - Pending Review Specialty Diagnoses / Procedures Referred By Contluigi t Referred To Contact Nephrology Diagnoses CKD stage 3b, GFR 30-44 ml/min (CMS/HCC) Procedures WI OFFICE/OUTPATIENT NEW HIGH MDM 60 MINUTES Carin Brown NP [address] [place] [address] Tereza Lopez MD [address] [place] [address] Referral ID Status Reason Start Date Expiration Date Visits Requested Visits Authorized [id number] Pending Review Specialty Services Required 04/09/2024 10/06/2024 1 1 Scheduling Instructions Please include OV note from 04/09/2024; [facility] Summary Purpose Family History No Family History Records FoundNo Family History Records Found Advance Directives No Advanced Directives Records FoundNo Advanced Directives Records Found Additional Source Comments INFORMATION SOURCE (unrecogn ized section and content) DATE CREATED AUTHOR 11/10/2022 [facility] DATE CREATED AUTHOR AUTHOR'S ORGANIZ ATION 04/11/2024 [facility] Care Teams (unrecognized sec tion and content) Demand Inspector Relationship Specialty Start Date End Date Jhonny Rai MD [address] [place] [address] PCP - General Family Medicine 02/13/24 Carin Brown NP [address] [place] [address] Nurse Practitioner Family Medicine 02/13/24 Demand Inspector Relationship Specialty Start Date End Date Jhonny Rai MD [address] [place] [address] PCP - General Family Medicine 02/13/24 Carin Brown NP [address] [place] [address] Nurse Practitioner Family Medicine 02/13/24 Demand Inspector Relationship Specialty Start Date End Date Jhonny Rai MD [address] [place] [address] PCP - General Family Medicine 02/13/24 Carin Brown NP [address] [place] [address] Nurse Practitioner Family Medicine 02/13/24 Demand Inspector Relationship Specialty Start Date End Date Jhonny Rai MD [address] [place] [address] PCP - General Family Medicine 02/13/24 Carin Brown NP [address] [place] [address] Nurse Practitioner Family Medicine 02/13/24 Demand Inspector Relationship Specialty Start Date End Date Jhonny Rai MD [address] [place] [address] PCP - General Family Medicine 02/13/24 Carin Brown NP [address] [place] [address] Nurse Practitioner Family Medicine 02/13/24 Demand Inspector Relationship Specialty Start Date End Date Jhonny Rai MD [address] [place] [address] PCP - General Family Medicine 02/13/24 Carin Brown NP [address] [place] [address] Nurse Practitioner Family Medicine 02/13/24 Reason for Visit (unrecogniz ed section and content) Reason Comments Med Refill Hypertension Hyperlipidemia Diabetes Reason Onset Date Comments Med Refill 05/11/2024 Reason Onset Date Comments Med Refill 05/13/2024 Reason Onset Date Comments Med Refill 05/26/2024 FOR RECORDS PERTAINING TO PATIENTS WHO ARE [...] BE BASED ON THE PRIMARY CLINICAL RECORDS. [employer] provides no warranty or guarantee of the accuracy or completeness of information in this document.
[2024-08-04 07:47] LABS: Basophils Absolute Auto 0.1 10^3/uL (0.0-0.1); Basophils Percent Auto 0.7 % (0.2-2.0); Eosinophils Absolute Auto 0.4 10^3/uL (0.0-0.7); Eosinophils Percent Auto 4.2 % (0.9-7.0); Hematocrit 42.6 % (36.0-48.0); Hemoglobin 13.6 g/dL (12.0-16.0); Immature Granulocytes Abs Auto 0.03 10^3/uL (0.00-0.03); Immature Granulocytes Pct Auto 0.3 % (0.0-0.5); Lymphocytes Percent Auto 22.1 % (20.5-60.0); Mean Corpuscular HGB Conc 31.9 g/dL (29.9-35.2); Mean Corpuscular Hemoglobin 28.5 pg (26.7-34.0); Mean Corpuscular Volume 89.1 fL (81.0-99.0); Mean Platelet Volume 10.4 fL (9.5-13.5); Monocytes Absolute Auto 0.5 10^3/uL (0.3-0.8); Monocytes Percent Auto 5.2 % (1.7-12.0); Neutrophils Percent Auto 67.5 % (43.0-75.0); Platelet Count 266 10^3/uL (150-450); Red Blood Count 4.78 10^6/uL (4.20-5.40); Red Cell Distribution Width 14.6 % (11.0-15.0); White Blood Count 8.9 10^3/uL (4.0-11.0)
[2024-08-04 09:00] LABS: Estimated Average Glucose 154 mg/dL
[2024-08-04 10:02] LABS: Alanine Aminotransferase 30 U/L (14-59); Albumin Globulin Ratio 0.9; Albumin Level 3.4 g/dL (3.4-5.0); Alkaline Phosphatase 122 U/L (46-116); Anion Gap 9.4; Aspartate Amino Transferase 15 U/L (15-37); BUN Creatinine Ratio 15.3; Bilirubin Total 0.4 mg/dL (0.2-1.0); Calcium 9.8 mg/dL (8.5-10.1); Carbon Dioxide 30.6 mmol/L (21.0-32.0); Chloride 103 mmol/L (98-107); Cholesterol 155 mg/dL (<=200); Estimated GFR (African America 41 (>=60 mL/min/1.73m^2); Estimated GFR (Non-African Ame 34 (>=60 mL/min/1.73m^2); Glucose 110 mg/dL (74-106); HDL Cholesterol 51 mg/dL (40-60); Sodium 139 mmol/L (136-145); Total Protein 7.4 g/dL (6.4-8.2); Triglycerides 145 mg/dL (<=150)
[2024-08-04 14:52] LABS: Creatinine Urine Random 91.63 mg/dL (20.00-300.00); Microalbum Creatinine Ratio Ur 92.7 mg/g (0.0-29.9); Microalbumin Urine Random 8.5 mg/dL (<=30.0)
== END 2024-08-04 07:21 | disposition home or self-care (01) ==
LOC: LAB 07:22
DX: E78.49 Other hyperlipidemia (principal); E11.22 Type 2 diabetes mellitus with diabetic chronic kidney disease; N18.31 Chronic kidney disease, stage 3a; Z79.4 Long term (current) use of insulin; N18.32 Chronic kidney disease, stage 3b; I12.9 Hypertensive chronic kidney disease with stage 1 through stage 4 chronic kidney disease, or unspecified chronic kidney disease
CPT/HCPCS: 36415; 80053; 80061; 82043; 82570; 83036; 85025

== ENCOUNTER 2024-10-12 13:58 | Outpatient (OUT) | payer MEDICARE, OTHER, SELFPAY ==
[2024-10-12 14:48] LABS: Bilirubin Urine NEGATIVE (NEGATIVE); Blood Urine NEGATIVE (NEGATIVE); Clarity Urine CLEAR (CLEAR); Color Urine LT. YELLOW (YELLOW); Glucose Urine UA NEGATIVE (NEGATIVE); Ketones Urine NEGATIVE (NEGATIVE); Leukocyte Esterase Urine NEGATIVE (NEGATIVE); Nitrite Urine NEGATIVE (NEGATIVE); Protein Urine NEGATIVE (NEG/TRACE); Specific Gravity Urine <=1.005 (1.005-1.025); Urobilinogen Urine 0.2 EU/dL (0.2-1.0); pH Urine 6.5 (5.0-9.0)
[2024-10-12 14:49] LABS: Hematocrit 40.3 % (36.0-48.0); Hemoglobin 13.1 g/dL (12.0-16.0); Mean Corpuscular HGB Conc 32.5 g/dL (29.9-35.2); Mean Corpuscular Hemoglobin 28.3 pg (26.7-34.0); Mean Platelet Volume 10.5 fL (9.5-13.5); Platelet Count 260 10^3/uL (150-450); Red Blood Count 4.63 10^6/uL (4.20-5.40); Red Cell Distribution Width 14.2 % (11.0-15.0); White Blood Count 9.5 10^3/uL (4.0-11.0)
[2024-10-12 15:02] LABS: Total Protein Urine Random 7.7 mg/dL (<=11.9)
[2024-10-12 15:45] LABS: Bacteria Urine TRACE #/HPF (NONE SEEN); Cast Seen? NONE SEEN #/LPF (NONE SEEN); Crystals Seen? None Seen #/HPF (None Seen); Mucus Urine NONE SEEN (NONE SEEN); RBC Urine 0-2 #/HPF (0-2); Squamous Epithelial Cell Urine FEW #/LPF (NONE/RARE); WBC Urine 0-2 #/HPF (NONE SEEN)
[2024-10-12 15:50] LABS: Albumin Level 3.6 g/dL (3.4-5.0); Anion Gap 11.1; BUN Creatinine Ratio 12.4; Calcium 10.1 mg/dL (8.5-10.1); Carbon Dioxide 30.6 mmol/L (21.0-32.0); Chloride 100 mmol/L (98-107); Estimated GFR (African America 42 (>=60 mL/min/1.73m^2); Estimated GFR (Non-African Ame 35 (>=60 mL/min/1.73m^2); Glucose 151 mg/dL (74-106); Magnesium 1.7 mg/dL (1.8-2.4); Phosphorus 2.9 mg/dL (2.6-4.7); Potassium 3.7 mmol/L (3.5-5.1); Sodium 138 mmol/L (136-145); Uric Acid 6.6 mg/dL (2.6-6.0)
[2024-10-13 10:08] LABS: PTH, Intact 61 pg/mL (15-65)
== END 2024-10-12 13:59 | disposition home or self-care (01) ==
LOC: LAB 14:08
PROVIDERS: Visit Provider Internal Medicine
DX: E11.22 Type 2 diabetes mellitus with diabetic chronic kidney disease (principal); N18.30 Chronic kidney disease, stage 3 unspecified; E78.5 Hyperlipidemia, unspecified; E83.52 Hypercalcemia; I12.9 Hypertensive chronic kidney disease with stage 1 through stage 4 chronic kidney disease, or unspecified chronic kidney disease
CPT/HCPCS: 36415; 80069; 81001; 82306; 82570; 83735; 83970; 84156; 84550; 85027

== ENCOUNTER 2024-11-26 10:01 | Outpatient (OUT) | payer MEDICARE, OTHER, SELFPAY ==
--- OUTSIDE RECORDS SUMMARY | 2024-10-27 13:00 | XMS_ITS ---
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 Name Role Phone Carin Espinosa Primary Care Unavaila ble Dora Love Attending Unavailable Dora Love Admitting Unavailable CARIN ESPINOSA Attending Unavailyogesh e SAMM MCCRAY Attending Unavailable SHAIKH DIAMOND Attending Unavailable CARIN ESPINOSA Attending [place] e PROBLEMS DATE TYPE CONDITION / CODE ATTENDING STATUS [facility] 09/15/2024 Unknown Chronic kidney d isease, stage 3 unspecified / N18.30(ICD-10) Kate, [facility] 09/15/2024 Unknown Hyperlipidemia, unspecified / E78.5(ICD-10) [facility] 09/15/2024 Unknown Hypercalcemia / E83.52(ICD-10) [facility] 09/15/2024 Unknown Hypertensive chr onic kidney disease with stage 1 through stage 4 chronic kidney disease, or unspecified chronic kidney disease / I12.9(ICD-10) [facility] 09/15/2024 Unknown Type 2 diabetes mellitus with diabetic chronic kidney disease / E11.22(ICD-10) [facility] PROCEDURES No Procedure Records Found RESULTS US RENAL BI Observed: 09/15/2024 2:31 PM Status: COMPLETED Source: [facility] [place] [address] Ultrasound Report Signed Patient: Eileen Caldera MR#: [id number] : 1945 Acct:[id number] Age/Sex: 79 / F ADM Date: 09/15/24 Loc: Room: Type: [facility] Attending Dr: Dora Love MD Ordering Provider: Dora Love MD Date of Service: 09/15/24 US/US renal BI: N18.30 - Chronic kidney disease, stage 3 unspecified Copies to: Dora Love MD BILATERAL RENAL AND BLADDER ULTRASOUND CLINICAL HISTORY: Stage III chronic kidney disease. COMPARISON: None FINDINGS: Estimation of renal size is approximately 10.8 cm on the right and 12.3 cm on the left. No contour deforming mass, shadowing stone or hydronephrosis. The urinary bladder is partially distended with a volume of 139.32 ml. No shadowing stone or focal lesion. No significant postvoid residual. Questionable hypoechoic lesion involving the liver measuring 2.9 x 2.8 x 2.0 cm. US/US renal BI IMPRESSION: NO ACUTE FINDINGS. QUESTIONABLE HYPOECHOIC LESION INVOLVING THE LIVER MEASURING 2.9 CM. THIS CAN BE COMPLETELY EVALUATED BY LIVER CT OR MRI. Impression dictated by: Mickey Ivory Jr., D.OHaley09/15/2024 2:32 PM Dictation Location: [place] [address] Tech: Minal Aceves Transcribed By: ALVA 09/15/24 1432 Dictated By: Mickey Ivory Jr, DO 09/15/24 1431 Signed By: <Electronically signed by Mickey Ivory Jr, DO in OV> 09/15/24 1432 ALLERGIES DATE TYPE / CODE NAME / CODE REACTION SEVERITY SOURCE 09/03/2024 Drug Allergy/641224618 (SNOMED CT) sulfamethoxazole/ [id number](RXNORM ) Rash Unknown [facility] 09/03/2024 Drug Allergy/047312576 (SNOMED CT) trimethoprim/F006 046548(RXNORM) Rash Unknown [facility] ENCOUNTERS ADMIT/DISCHARGE ACCOUNT NUMBER ADMITTING ENCOUNTER CLASS LOCATION SOURCE 10/27/2024/10/28/19 [id number] Ambulatory Building:[facility] 09/15/2024/09/16/19 [id number] Dora Love [facility] 08/12/2024/08/12/19 [id number] Ambulatory Building:[facility] EPIC 04/09/2024/04/09/20 24 [id number] Ambulatory Building:[facility] 12/17/2023/12/17/19 24 [id number] Ambulatory Building:[facility] EPIC PAYERS ENCOUNTER GUARANTOR PAYER SUBSCRIBER SOURCE 10/27/2024 EILEEN CALDERAJASVIR: [id number] [address] [place] [address]Spb: () Primary Insurance:MEDICAREPo licy Number: [id number] Date:0740-67-00Iqqf Name:Medicare EILEEN MARIEB: [id number] [address] [place] [address] [facility] EPIC 10/27/2024 Secondary Insurance:MEDICAL MUTUALPolicy Number: [id number] e Date:2021-06-07 EILEEN CALDERAB: [id number] [place] [address] [facility] EPIC 09/15/2024 Eileen Blackmon [id number] [address]Txs: () Primary Insurance:MedicarePo licy Number: [id number] Date:2024-09-03 Eileen MarieB: [id number] [address] [address]Lpj: (HP) [facility] 09/15/2024 Secondary Insurance:MMOPolicy Number: [id number] e Date:0978-29-14[id number] [place] [address]ZR: Eileen MarieB: [id number] [place] [address]Jkw: (HP) [facility] 09/15/2024 Tertiary Insurance:Self PayPolicy Number: Effective Date:2024-09-07 NOT GIVENUNK [facility] 08/12/2024 EILEEN ZEPEDA: [id number] [address] [place], [place] [address]Ekc: (HP) Primary Insurance:MEDICAREPo licy Number: [id number] Date:4934-89-33Vuzz Name:Medicare EILEEN MARIEB: [id number], [place] [address] [facility] EPIC 08/12/2024 Secondary Insurance:MEDICAL MUTUALPolicy Number: [id number] e Date:2021-06-07 EILEEN MARIEB: [id number], [place] [address] [facility] EPIC 04/09/2024 EILEEN MARIEB: [id number] [address] [place], [place] [address]Etn: (HP) Primary Insurance:MEDICAREPo licy Number: [id number] Date:2318-63-96Uqpw Name:Medicare EILEEN MARIEB: [id number], [place] [address] [facility] EPIC 04/09/2024 Secondary Insurance:MEDICAL MUTUALPolicy Number: [id number] e Date:2021-06-07 EILEEN MARIEB: [id number] [place] [address] [facility] EPIC 12/17/2023 EILEEN MARIEB: [address], [place] [address]Xhc: (HP) Primary Insurance:MEDICAREPo licy Number: [id number] Date:4162-06-59Bwvn Name:Medicare EILEEN Blackmon KATELYN: [id number] [address] [address] [facility] 12/17/2023 Secondary Insurance:MEDICAL MUTUALPolicy Number: [id number] e Date:2021-06-07 EILEEN Blackmon KATELYN: [id number] [address] [address] [facility] EPIC
--- OUTSIDE RECORDS SUMMARY | 2024-11-26 10:04 | XMS_ITS | Encounter Summary ---
Author Organization [facility] Address [address] [place] [address] Care Team Providers Care Application Designer Name Role Phone Shaikh AVA Oliveira Primary Care Provider [phone] Shaikh AVA Oliveira Primary Care Provider [phone] Jhonny Rai MD Primary Care Provider [phone] Carin Brown BUSINESS EDITOR Unavailable Encounter Details Date Type Department Care Team (Late st Contact Info) Description 07/11/2023 Orders Only [facility] [address] [place] [address] Shaikh Oliveira MD [address] [place] [address] Social History Tobacco Use Types Packs/Day Years Used Date Smoking Tobacco: Never Smokeless Tobacco: Never Alcohol Use Standard Drinks/Week Comments Never 0 (1 standard drink = 0.6 oz pur e alcohol) Humiliation, Afraid, Rape, and Kick questionnair e Answer Date Recorded Within the last year, have y ou been afraid of your partner or ex-partner? Patient declined 06/17/2023 Within the last year, have y ou been humiliated or emotionally abused in other ways by your partner or ex-partner? Patient declined 06/17/2023 Within the last year, have y ou been kicked, hit, slapped, or otherwise physically hurt by your partner or ex-partner? Patient declined 06/17/2023 Within the last year, have y ou been raped or forced to have any kind of sexual activity by your partner or ex-partner? Patient declined 06/17/2023 Social Connection and Isolat ion Panel [NHANES] Answer Date Recorded In a typical week, how many times do you talk on the phone with family, friends, or neighbors? More than three times a week 06/17/2023 How often do you get togethe r with friends or relatives? More than three times a week 06/17/2023 How often do you attend chur or yarsani services? Patient declined 06/17/2023 Do you belong to any clubs o r organizations such as jewish groups, unions, fraternal or athletic groups, or school groups? No 06/17/2023 How often do you attend meet ings of the clubs or organizations you belong to? Patient declined 06/17/2023 Are you , , di vorced, , never , or living with a partner? 06/17/2023 AUDIT-C Answer Date Recorded Q1: How often do you have a drink containing alcohol? Never 06/17/2023 Q2: How many drinks containi ng alcohol do you have on a typical day when you are drinking? Patient does not drink Q3: How often do you have si x or more drinks on one occasion? Never 06/17/2023 Overall Financial Resource Strain (CARDIA) Answe r Date Recorded How hard is it for you to pa y for the very basics like food, housing, medical care, and heating? Not hard at all 06/17/2023 [facility] - Occupational Stress Questionnaire Answer Date Recorded Do you feel stress - tense, restless, nervous, or anxious, or unable to sleep at night because your mind is troubled all the time - these days? Not at all 06/17/2023 Exercise Vital Sign Answer Date Recorde d On average, how many days pe r week do you engage in moderate to strenuous exercise (like a brisk walk)? Patient declined On average, how many minutes do you engage in exercise at this level? Patient declined 06/17/2023 Hunger Vital Sign Answer Date Recorded Within the past 12 months, y ou worried that your food would run out before you got the money to buy more. Never true 06/17/20 23 Within the past 12 months, t he food you bought just didn't last and you didn't have money to get more. Never true 06/17/2023 PRAPARE - Transportation Answer Date Re corded In the past 12 months, has l ack of transportation kept you from medical appointments or from getting medications? No 06/07 In the past 12 months, has l ack of transportation kept you from meetings, work, or from getting things needed for daily living? No 06/17/2023 Housing Stability Vital Sign Answer Lenin e Recorded In the last 12 months, was t here a time when you were not able to pay the mortgage or rent on time? No 06/17/2023 In the last 12 months, how many places have you lived? 1 06/17/2023 In the last 12 months, was t here a time when you did not have a steady place to sleep or slept in a residential (including now)? No 06/17/2023 Comments Unknown Sex and Gender Information Value Date Recorded Sex Assigned at Not on file Legal Sex Female 1:21 PM EDT Gender Identity Not on file Sexual Orientation Not on file documented as of this encounter Plan of Treatment Upcoming Encounters Date Type Department Care Team (Late st Contact Info) Description 01/26/2025 1:20 PM EDT Office Visit [facility] [address] [place] [address] Elsa Miramontes NP [address] [place] [address] 10/28/2025 11:00 AM EDT Office Visit [facility] [address] [place] [address] Elsa Miramontes NP [address] [place] [address] documented as of this encounter Procedures Procedure Name Priority Date/Time Associated Diagnosis Comments MAMM SCREEN CAD BILAT10.00 %28 Routine 07/10/2023 10:50 AM EST documented in this encounter Results * MAMM SCREEN CAD BILAT10.00 %28 (07/10/2023 10:50 AM EST) Anatomical Region Laterality Modality Radiographic Marilin ging Shaikh Roxanne ESCALANTE IMG XR PROCEDURES Final Result documented in this encounter Visit Diagnoses Not on filedocumented in this encounter Care Teams Application Designer Relationship Specialty Start Date End Date Shaikh Oliveira MD PCP - General Internal Medicine 02/01/23 09/23/23 Shaikh Oliveira MD [address] [place] [address] PCP - General Internal Medicine 09/24/23 02/12/24 Jhonny Rai MD [address] [place] [address] PCP - General Family Medicine 02/13/24 Carin Brown NP [address] [place] [address] Nurse Practitioner Family Medicine 02/13/24 documented as of this encounter
--- OUTSIDE RECORDS SUMMARY | 2024-11-26 10:04 | XMS_ITS | Encounter Summary ---
Author Organization [facility] Address [address] [place] [address] Care Team Providers Care Whitesmith Name Role Phone Jhonny Rai MD Primary Care Provider [phone] Carin Brown PIPE ORGAN TECHNICIAN Unavailable [phone] Reason for Visit * Reason Onset Date Comments Med Refill 11/24/2024 Encounter Details Date Type Department Care Team (Late st Contact Info) Description 11/24/2024 Refill [facility] [address] [place] [address] Jhonny Rai MD [address] [place] [address] Other specified hypothyroidism Social History Tobacco Use Types Packs/Day Years Used Date Smoking Tobacco: Never Passive Smoke Exposure: Never Smokeless Tobacco: Never Alcohol Use Standard Drinks/Week Comments Never 0 (1 standard drink = 0.6 oz pur e alcohol) B1300 Health Literacy Answer Date Recor ded How often do you need to hav e someone help you when you read instructions, pamphlets, or other written material from your doctor or pharmacy? Never 07/29/2024 Humiliation, Afraid, Rape, and Kick questionnair e [...] neighbors? More than three times a week 07/29/2024 How often do you get togethe r with friends or relatives? Twice a week 07/29/2024 How often do you attend chur or sabianism services? Patient declined 07/29/2024 Do you belong to any clubs o r organizations such as nondenominational groups, unions, fraternal or athletic groups, or school groups? Yes 07/29/2024 How often do you attend meet ings of the clubs or organizations you belong to? More than 4 times per year 07/29/2024 Are you , , di vorced, , never , or living with a partner? 07/29/2024 AUDIT-C Answer Date Recorded Q1: How often do you have a drink containing alcohol? Never 07/29/2024 Q2: How many drinks containi ng alcohol do you have on a typical day when you are drinking? Patient does not drink Q3: How often do you have si x or more drinks on one occasion? Never 07/29/2024 Overall Financial Resource Strain (CARDIA) Answe r Date Recorded How hard is it for you to pa y for the very basics like food, housing, medical care, and heating? Not hard at all 07/29/2024 PHQ-2 Answer Date Recorded Patient Health Questionnaire-2 Score 0 10/27/2024 [facility] - Occupational Stress Questionnaire Answer Date Recorded Do you feel stress - tense, restless, nervous, or anxious, or unable to sleep at night because your mind is troubled all the time - these days? Not at all 07/29/2024 Exercise Vital Sign Answer Date Recorde d On average, how many days pe r week do you engage in moderate to strenuous exercise (like a brisk walk)? 1 day 07/29/2024 On average, how many minutes do you engage in exercise at this level? 20 min 07/29/2024 Hunger Vital Sign Answer Date Recorded Within the past 12 months, y ou worried that your food would run out before you got the money to buy more. Never true 07/29/19 25 Within the past 12 months, t he food you bought just didn't last and you didn't have money to get more. Never true 07/29/2024 PRAPARE - Transportation Answer Date Re corded In the past 12 months, has l ack of transportation kept you from medical appointments or from getting medications? No 07/09 In the past 12 months, has l ack of transportation kept you from meetings, work, or from getting things needed for daily living? No 07/29/2024 Housing Stability Vital Sign Answer Lenin e [...] place to sleep or slept in a usp (including now)? No 06/17/2023 Housing Stability Vital Sign Answer Lenin e Recorded In the last 12 months, was t here a time when you were not able to pay the mortgage or rent on time? No 07/29/2024 Number of Times Moved in the Last Year Not on fi le 07/29/2024 At any time in the past 12 m [facility], were you homeless or living in a usp (including now)? No 07/29/2024 Comments Unknown Sex and Gender Information Value Date Recorded Sex Assigned at Not on file Legal Sex Female 1:21 PM EDT Gender Identity Not on file Sexual Orientation Not on file documented as of this encounter Plan of Treatment Upcoming Encounters Date Type Department Care Team (Late st Contact Info) Description 01/26/2025 1:20 PM EDT Office Visit [facility] [address] [place] [address] Elsa Miramontes NP [address] [place] [address] 10/28/2025 11:00 AM EDT Office Visit [facility] [address] [place] [address] Elsa Miramontes NP [address] [place] [address] Scheduled Orders Name Type Priority Associated Diagnoses Orde r Schedule TSH Lab Routine Other specified hypothyroidism Expected: 11/24/2024 (Approximate), Expires: 11/24/2025 T4, free Lab Routine Other specified hypothyroidism Expected: 11/24/2024 (Approximate), Expires: 11/24/2025 documented as of this encounter Visit Diagnoses Diagnosis Other specified hypothyroidism documented in this encounter Additional Health Concerns Assessment Noted Time PHQ-9 Depression Total Score: 0 10/28/19 25 1:06 PM EDT documented as of this encounter Care Teams Whitesmith Relationship Specialty Start Date End Date Jhonny Rai MD [address] [place] [address] PCP - General Family Medicine 02/13/24 Carin Brown NP [address] [place] [address] Nurse Practitioner Family Medicine 02/13/24 documented as of this encounter
--- OUTSIDE RECORDS SUMMARY | 2024-11-26 10:04 | XMS_ITS | Encounter Summary ---
Author Organization [facility] Address [address] [place] [address] Care Team Providers Care Negative Developer Name Role Phone Shaikh AVA Oliveira Primary Care Provider [phone] Shaikh AVA Oliveira Primary Care Provider [phone] Jhonny Rai MD Primary Care Provider [phone] Carin Brown SENIOR SOUS CHEF Unavailable [phone] Reason for Visit * Reason Comments Med Refill Encounter Details Date Type Department Care Team (Late st Contact Info) Description 09/09[facility]2023 [facility] [address] [place] [address] Shaikh Oliveira MD [address] [place] [address] Type 2 diabetes mellitus with stage 3a chronic kidney disease, with long-term current use of insulin (HCC) ([facility]) Social History Tobacco Use Types Packs/Day Years [...] How often do you attend chur or spiritism services? Patient declined 06/17/2023 Do you belong to any clubs o r organizations such as christianity groups, unions, fraternal or athletic groups, or [...] and heating? Not hard at all 06/17/2023 [facility] of Occupat ional Health - Occupational Stress [...] place to sleep or slept in a chcf (including now)? No 06/17/2023 Comments Unknown Sex [...] Office Visit [facility] [address] [place] [address] Elsa Miramontes, MONIQUE [address] [place] [address] 10/28/2025 11:00 AM EDT Office Visit [facility] [address] [place] [address] Elsa Miramontes NP [address] [place] [address] documented as of this encounter Visit Diagnoses Diagnosis Type 2 diabetes mellitus with stage 3a chronic kidney disease, with long-term current use of insulin (HCC) (CMS/HCC) documented in this encounter Care Teams Negative Developer Relationship Specialty Start Date End Date Shaikh Oliveira MD PCP - General Internal Medicine 02/01/23 09/23/23 Shaikh Oliveira MD [address] [place] [address] PCP - General Internal Medicine 09/24/23 02/12/24 Jhonny Rai MD [address] [place] [address] PCP - General Family Medicine 02/13/24 Carin Brown NP [address] [place] [address] Nurse Practitioner Family Medicine 02/13/24 documented as of this encounter
--- OUTSIDE RECORDS SUMMARY | 2024-11-26 10:04 | XMS_ITS | Encounter Summary ---
Author Organization [facility] Address [address] [place] [address] Care Team Providers Care Traffic Enumerator Name Role Phone Shaikh AVA Oliveira Primary Care Provider [phone] Jhonny Rai MD Primary Care Provider [phone] Carin Brown FINANCIAL COORDINATOR Unavailable Encounter Details Date Type Department Care Team (Late st Contact Info) Description 01/06/2024 Orders Only [facility] [address] [place] [address] Cameron Mosher MD [address] [address] Social History Tobacco Use Types Packs/Day Years [...] How often do you attend chur or catholic services? Patient declined 06/17/2023 Do you belong to any clubs o r organizations such as latter day groups, unions, fraternal or athletic groups, or [...] and heating? Not hard at all 06/17/2023 PHQ-2 Answer Date Recorded Patient Health Questionnaire-2 Score 0 12/17/2023 [facility] Answer Date Recorded [...] No 06/17/2023 Housing Stability Vital Sign Answer Elnin e Recorded In the last 12 months, [...] place to sleep or slept in a long-term (including now)? No 06/17/2023 Comments Unknown Sex [...] Office Visit [facility] [address] [place] [address] Elsa Miramontes NP [address] [place] [phone] 10/28/2025 11:00 AM EDT Office Visit [facility] [address] [place] [address] Elsa Miramontes NP [address] [place] [phone] documented as of this encounter Procedures Procedure Name Priority Date/Time Associated Diagnosis Comments DIABETES EYE EXAM Routine 01/06/2024 12:05 PM EDT documented in this encounter Results * Diabetes Eye Exam (01/06/2024 12:05 PM EDT) us Cameron Mosher MD HEALTH MAINTENANCE Final Resul t documented in this encounter Visit Diagnoses Not on filedocumented in this encounter Additional Health Concerns Assessment Noted Time PHQ-9 Depression Total Score: 0 09/24/19 10:00 AM EDT documented as of this encounter Care Teams Traffic Enumerator Relationship Specialty Start Date End Date Shaikh Oliveira MD [address] [place] [phone] PCP - General Internal Medicine 09/24/23 02/12/24 Jhonny Rai MD [address] [place] [phone] PCP - General Family Medicine 02/13/24 Carin Brown NP [address] [place] [phone] Nurse Practitioner Family Medicine 02/13/24 documented as of this encounter
--- OUTSIDE RECORDS SUMMARY | 2024-11-26 10:04 | XMS_ITS | Encounter Summary ---
Author Organization [facility] Address [address] [place] [address] Care Team Providers Care String Laster Name Role Phone Shaikh AVA Oliveira Primary Care Provider [phone] Shaikh AVA Oliveira Primary Care Provider [phone] Jhonny Rai MD Primary Care Provider [phone] Carin Brown FOOT SPECIALIST Unavailable [phone] Reason for Visit * Reason Comments Med Refill Encounter Details Date Type Department Care Team (Late st Contact Info) Description 07/08/2023 [facility] [address] [place] [address] Shaikh Oliveira MD [address] [place] [phone] Type 2 diabetes mellitus with stage 3a chronic kidney disease, with long-term current use of insulin (HCC) (CMS/HCC) (Primary Dx) Social History Tobacco Use Types Packs/Day Years [...] week 06/17/2023 How often do you attend [facility] or [facility] services? Patient declined 06/17/2023 Do you belong to any clubs o r organizations such as tenriism groups, unions, fraternal or athletic groups, or [...] and heating? Not hard at all 06/17/2023 [facility] - [...] place to sleep or slept in a fpc (including now)? No 06/17/2023 Comments Unknown Sex and Gender Information Value Date Recorded Sex Assigned at Not on file Legal Sex Female 1:21 PM EDT Gender Identity Not on file Sexual Orientation Not on file documented as of this encounter Miscellaneous Notes * Telephone Encounter - Shaikh Roxanne MD - 07/08/2023 5:25 PM EST Approving, but needs appt for additional refills. documented in this encounter Plan of Treatment Upcoming Encounters Date Type Department Care Team (Late st Contact Info) Description 01/26/2025 1:20 PM EDT Office Visit [facility] [address] [place] [address] Elsa Miramontes NP [address] [place] [address] 10/28/2025 11:00 AM EDT Office Visit [facility] [address] [place] [address] Elsa Miramontes NP [address] [place] [phone] documented as of this encounter Visit Diagnoses Diagnosis Type 2 diabetes mellitus with stage 3a chronic kidney disease, with long-term current use of insulin (HCC) ([facility]/HCC)- Primary documented in this encounter Care Teams String Laster Relationship Specialty Start Date End Date Shaikh Oliveira MD PCP - General Internal Medicine 02/01/23 09/23/23 Shaikh Oliveira MD [address] [place] [phone] PCP - General Internal Medicine 09/24/23 02/12/24 Jhonny Rai MD [address] [place] [phone] PCP - General Family Medicine 02/13/24 Carin Brown NP [address] [place] [phone] Nurse Practitioner Family Medicine 02/13/24 documented as of this encounter
--- OUTSIDE RECORDS SUMMARY | 2024-11-26 10:04 | XMS_ITS | Clinical Summary ---
Author Organization [facility] Healthcare Address [address] [place] [address] Care Team Providers Care Quality Assurance Lab Technician Name Role Phone Jhonny Rai MD Primary Care Provider [phone] Carin Brown DOWNSTREAM BIOMANUFACTURING TECHNICIAN Unavailable [phone] Allergies Active Allergy Reactions Criticality Noted Date Comments Sulfamethoxazole-Trimethoprim Rash,GI intolerance Low 06/17/2023 Medications insulin syringe-needle U-100 (CareOne Insulin Syringe) 30G X 1/2 1 ML misc 1 each every 12 (twelve) hours Active Glucose Blood (BLOOD GLUCOSE TEST ) Active Alcohol Swabs (Alcohol Prep) 70 % pads Active pen needle 30G x 5 mm misc Inject 1 each under the skin in the morning and 1 each at noon and 1 each in the evening and 1 each before bedtime. Use as instructed. Active allopurinol (Zyloprim) 100 MG tablet Take 100 mg by mouth in the morning. Active Ozempic, 1 MG/DOSE, 4 MG/3ML solution pen-injectorIndic ations:Type 2 diabetes mellitus with stage 3a chronic kidney disease, with long-term current use of insulin (HCC) (CMS/HCC) INJECT 1 MG SUBCUTANEOUSLY ONCE WEEKLY 9 mL 3 02/14/20 24 Active alendronate (Fosamax) 35 MG tabletIndications :Osteoporosis without current pathological fracture, unspecified osteoporosis type (CMS/HCC) TAKE 1 TABLET BY MOUTH WEEKLY WITH 8 OZ OF PLAIN WATER 30 MINUTES BEFORE FIRST FOOD, DRINK OR MEDS. STAY UPRIGHT FOR 30 MINS 12 tablet 3 02/14/20 24 Active glipiZIDE (Glucotrol) 10 MG tabletIndications :Type 2 diabetes mellitus with stage 3a chronic kidney disease, with long-term current use of insulin (HCC) ([facility]) TAKE 1 TABLET BY MOUTH DAILY 90 tablet 3 02/18/20 24 Active atorvastatin (Lipitor) 20 MG tabletIndications :Hyperlipidemia, unspecified hyperlipidemia type (CMS/HCC) TAKE 1 TABLET BY MOUTH DAILY 90 tablet 3 02/18/20 24 Active losartan (Cozaar) 100 MG tabletIndications :Primary hypertension (CMS/HCC) TAKE 1 TABLET BY MOUTH DAILY 90 tablet 3 02/18/20 24 Active furosemide (Lasix) 40 MG tabletIndications :Primary hypertension (CMS/HCC),Stage 3a chronic kidney disease (HCC) ([facility]) TAKE 1 TABLET BY MOUTH DAILY 90 tablet 3 02/18/20 24 Active metFORMIN (Glucophage) 500 MG tabletIndications :Type 2 diabetes mellitus with stage 3a chronic kidney disease, with long-term current use of insulin (HCC) ([facility]) TAKE 1 TABLET BY MOUTH EVERY 12 HOURS 180 tablet 3 02/18/20 24 Active insulin lispro (HumaLOG KWIKPEN) 100 UNIT/ML injectionIndicati ons:Type 2 diabetes mellitus with stage 3a chronic kidney disease, with long-term current use of insulin ([facility]) ([facility]) INJECT 12 UNITS WITH BREAKFAST, LUNCH, AND 8 UNITS WITH DINNER. FOR FSBS 150-200 6 UNITS, 201-250 8 UNITS, 251-300 10 UNITS MAX 50 UNITS/DAY 48 mL 1 05/27/20 24 Active amLODIPine (Norvasc) 10 MG tabletIndications :Primary hypertension ([facility]/HCC) Take 0.5 tablets (5 mg) by mouth Daily 90 tablet 08/12/19 25 026 Active Lantus SoloStar 100 UNIT/ML penIndications:Ty pe 2 diabetes mellitus with stage 3a chronic kidney disease, with long-term current use of insulin ([facility]) ([facility]) INJECT SUBCUTANEOUSLY 70 UNITS AT BEDTIME 75 mL 3 08/26/19 25 Active carvedilol (Coreg) 6.25 MG tablet Take 6.25 mg by mouth in the morning and 6.25 mg in the evening. Take with meals. 10/16/19 25 Active levothyroxine (Synthroid) 88 MCG tabletIndications :Other specified hypothyroidism Take 1 tablet (88 mcg) by mouth Daily 90 tablet 11/25/19 25 025 Active Synthroid 88 MCG tabletIndications :Other specified hypothyroidism TAKE 1 TABLET BY MOUTH DAILY 90 tablet 3 11/13/19 24 025 Taina do(Heidio rder) Active Problems Problem Noted Date Diagnosed Date Morbid (severe) obesity due to excess calories 0 10/27/2024 Assessment & Plan (10/27/2024 6:34 AM EDT): Discussed with patient their BMI (actual, verses recommended). We have also discussed lifestyle modifications: attempts to perform physical activity as chronic conditions allow, also to monitor dietary intake: increasing protein/fruits/veggies and lowering carb intake (unless contraindicated). Limit sodas, juices, and sugary drinks. Type 2 diabetes mellitus, wi th long-term current use of insulin 10/27/2024 Assessment & Plan (10/27/2024 6:38 AM EDT): Check blood sugars daily, notify if <70 or >200. Take medications (pills or insulin) as directed. Monitor for s/s of hypoglycemia (sweaty, dizziness, nausea, vomiting, or shakiness). Watch for increase in thirst, urination, or appetite. Inspect feet frequently monitoring for open wounds , and also recommend yearly eye exam. Pt should attempt to remain as physically active as chronic conditions allow, as well as trying to follow a diet low in carbohydrates, and simple sugars. Current meds: statin, insulin, arb, metformin, ozempic A1c: 7% on 08/04/24 Mixed hyperlipidemia 10/27/2024 Assessment & Plan (10/27/2024 6:37 AM EDT): Is on statin therapy Check labs yearly and prn dose changes CKD stage 3b, GFR 30-44 ml/min 04/09/2024 Overview (09/07/2024): Per nephrology: stop metformin inf GFR is less than 30 May also use pepcid and or omeprazole instead of TUMS d/t elevated calcium Assessment & Plan (10/27/2024 6:34 AM EDT): Limit nephrotoxic drugs if possible, continue with Nephrology Control DM and HTN Assessment & Plan (08/12/2024 2:57 PM EST): Likely related to CKD: Currently on ozempic 1mg Had considered Farxiga in past but co-pay was too expensive. Current eGFR 34; Scheduled to see Nephrology this month on 09/03/2024. Assessment & Plan (04/09/2024 11:00 AM EDT): Likely related to CKD: Currently on ozempic 1mg Had considered Farxiga in past but co-pay was too expensive. Current eGFR 32; Body mass index (BMI) 40.0-44.9, adult Assessment & Plan (04/09/2024 11:53 AM EDT): Discussed with patient their BMI (actual, verses recommended). We have also discussed lifestyle modifications: attempts to perform physical activity as chronic conditions allow, also to monitor dietary intake: increasing protein/fruits/veggies and lowering carb intake (unless contraindicated). Limit sodas, juices, and sugary drinks. Also discussed oral medications that can be utilized for weight loss, as well as surgical options for weight loss. Medicare annual wellness visit, subsequent 09/23 Assessment & Plan (10/27/2024 6:40 AM EDT): Reviewed Ht/Wt/BMI Recommend eye exam yearly Recommend dental exams twice a year Balance work/leisure activities Exercises is recommended most days of the week (appropriate as chronic conditions allow) Follow up yearly and prn Assessment & Plan (09/24/2023 10:39 AM EDT): Patient here for Medicare Wellness. Reviewed medical, surgical and social history. Reviewed medication list. Patient screened for depression, fall risk, cognitive impairment. Patient provided appropriate education on chronic medical conditions, prescription medications. Patient's health related questions and concerns addressed and answered. Primary hypertension 06/18/2023 Assessment & Plan (10/27/2024 6:38 AM EDT): Please check blood pressure daily and record DASH diet Limit caffeine Take medication as directed Contact office if chest pain, pressure, dizziness, shortness of breath, swelling legs Recommend slow position changes Current meds: amlodipine, losartan, b abdoulaye Assessment & Plan (08/12/2024 2:58 PM EST): Currently taking Losartan 100mg. Stopped taking Amlodipine due to edema in ankles, Checks BP at home; Averages are 130's on BP log. BP is elevated today in office. Advised pt to attempt taking 1/2 dose of the amlodipine and see if symptoms improve. Also recommended wearing compression socks. Advised pt to not change medication regimen without discussing with provider first. Pt states understanding. Denies orthostatic changes, dizziness, cough, shortness of breath. Given BP log, advised pt to record BP and bring log back with them to next visit. Assessment & Plan (04/09/2024 10:51 AM EDT): Currently taking Amlodipine 10mg Losartan 100mg Checks BP at home; Averages are 120-130's; BP is elevated today in office. Pt states she took medication just before leaving for Office Visit. Denies orthostatic changes, dizziness, cough, shortness of breath, swelling in extremities. Continue current regimen. Given BP log, advised pt to record BP and bring log back with them to next visit. Assessment & Plan (12/17/2023 1:24 PM EDT): BP readings are at goal at at home and on average less than 130/90. Tolerating Anti hypertensive w/o adverse effects. Denies lightheadedness, dizziness, syncope, presyncope. PCw/ losartan for now, lasix and last appointment Norvasc was added. She is tolerating it well, other than lower extremity edema but that is improving. C/w same regimen. No changes necessary. Assessment & Plan (11/04/2023 2:13 PM EDT): BP readings are at goal at at home and on average less than 130/90. However, when compared to office readings, it seems like her BP device is not accurately measuring her BP. Tolerating Anti hypertensive w/o adverse effects. Denies lightheadedness, dizziness, syncope, presyncope. PCw/ losartan for now. Add norvasc. Gave patient a scrip for BP device to measure and monitor her BP Follow up in one month Assessment & Plan (09/24/2023 10:38 AM EDT): BP well controlled at home and on average less than 130/90. Above goal in office. On re measurement, her BP was still 180/90. She is asymptomatic. Tolerating Anti hypertensive w/o adverse effects. Denies lightheadedness, dizziness, syncope, presyncope. Patient asked to maintain BP log, bring her home readings along with the device in one month. She was also asked to reach out to our office if her BP is persistently high so that we can see her sooner. Cw/ losartan for now. Not making any changes as she reports well controlled BP at home. Assessment & Plan (06/18/2023 11:33 AM EST): BP well controlled at home and on average less than 130/90. Tolerating Anti hypertensive w/o adverse effects. Denies lightheadedness, dizziness, syncope, presyncope. Patient encouraged to continue with home BP monitoring and call office if he experiences orthostatic symptoms or persistently elevated BP. C/w Losartan Other specified hypothyroidism 06/18/2023 Assessment & Plan (10/27/2024 6:35 AM EDT): On levothyroxine Check labs yearly and prn dose changes or changes in sxs Assessment & Plan (12/17/2023 1:27 PM EDT): On levothyroxine. TSH at goal Assessment & Plan (09/24/2023 10:31 AM EDT): Check TSH. On levothyroxine. Assessment & Plan (06/18/2023 11:34 AM EST): Check TSH. On levothyroxine. Screening mammogram, encounter for 06/18/2023 Assessment & Plan (06/18/2023 11:34 AM EST): Ordered mammogram Resolved Problems Problem Noted Date Diagnosed Date Resolved Date Poorly-controlled hypertension 09/24/2023 09/24/2023 Type 2 diabetes mellitus wit h stage 3a chronic kidney disease, with long-term current use of insulin ([facility]) 06/18/2023 10/27/2024 Overview (09/07/2024): Per nephrology on 09/01 stop metfromin IF GFR is <30 Assessment & Plan (08/12/2024 2:57 PM EST): Ozempic 1mg Glipizide 10mg Metformin 500mg BID Lantus 70 units Humalog 12u in morning and afternoon, and 8 units in evening. Most recent labs: hemoglobin A1C 7.2% Average FSBS range from BGs range between 110 and 150 No episode of hypoglycemia; Checks BG with standard fingerstick glucometer. Discussed continuous BG monitor with pt. Pt [...] home glucose monitoring noted. DM Eye Exam: [facility] 2023 Assessment & Plan (04/09/2024 11:02 AM EDT): Ozempic 1mg Glipizide 10mg Metformin 500mg BID Lantus 70 units Humalog 12u in morning and afternoon, and 8 units in evening. Most recent labs: hemoglobin A1C 6.8% Average FSBS range from BGs range between 120 and 150 No episode of hypoglycemia; Checks BG with reader; Discussed continuous BG monitor with pt. Pt not interested at this time. DM Eye Exam: [facility] 2023 No medication adverse effects reported by the patient. Patient educated on lifestyle modifications, dietary restrictions, signs and symptoms of hypoglycemia/hyperglycemia and importance of eating regular consistent meals. Stressed upon importance of checking blood glucose at home and bring blood glucose log to appointments. All questions, concerns answered and addressed. Encouraged to call office if persistent hypoglycemia/hyperglycemia on home glucose monitoring noted. Assessment & Plan (12/17/2023 1:26 PM EDT): Most recent labs: hemoglobin A1C 6.8 10/29 Average FSBS range from BGs consistently in an acceptable range - on average 100-150 No episode of hypoglycemia No medication adverse effects reported by the patient. She is on metformin, glipizide, lantus, humalog and ozempic. She is on Lantus 70 units, humalog 12 units in morning, afternoon and 8 units at night. She is on 1 mg ozempic. Check A1C before next appt. Assessment & Plan (09/24/2023 10:31 AM EDT): Most recent labs: hemoglobin A1C 7.5 06/29 Average FSBS range from BGs consistently in an acceptable range No episode of hypoglycemia No medication adverse effects reported by the patient. Patient educated on lifestyle modifications, dietary restrictions, signs and symptoms of hypoglycemia/hyperglycemia and importance of eating regular consistent meals. Stressed upon importance of checking blood glucose at home and bring blood glucose log to appointments. All questions, concerns answered and addressed. Encouraged to call office if persistent hypoglycemia/hyperglycemia on home glucose monitoring noted. She is on metformin, glipizide, lantus, humalog and ozempic. Assessment & Plan (06/18/2023 11:34 AM EST): Most recent labs: hemoglobin A1C 7.3 Average FSBS range from BGs consistently in an acceptable range No episode of hypoglycemia No medication adverse effects reported by the patient. Patient educated on lifestyle modifications, dietary restrictions, signs and symptoms of hypoglycemia/hyperglycemia and importance of eating regular consistent meals. Stressed upon importance of checking blood glucose at home and bring blood glucose log to appointments. All questions, concerns answered and addressed. Encouraged to call office if persistent hypoglycemia/hyperglycemia on home glucose monitoring noted. Check labs. No changes made. Other hyperlipidemia 06/18/2023 04//2 025 Assessment & Plan (08/12/2024 2:55 PM EST): Currently taking Atorvastatin 20mg Denies any myalgias. Most recent Lipid Panel WNL Continue current regimen. Assessment & Plan (04/09/2024 10:50 AM EDT): Currently taking Atorvastatin 20mg Denies any myalgias. Most recent Lipid Panel 04/30; Pt was NOT fasting for labs. Lipid panel likely falsely elevated. Continue current regimen. Assessment & Plan (12/17/2023 1:27 PM EDT): On lipitor. Assessment & Plan (06/18/2023 11:34 AM EST): On lipitor. Check lipid panel Stage 3a chronic kidney disease (HCC) 06/18/2023 10/27/2024 Assessment & Plan (12/17/2023 1:24 PM EDT): Stable. Due to T2 DM Avoid NSAIDS. On Losartan, lasix for volume control. Assessment & Plan (09/24/2023 10:29 AM EDT): Stable. Due to T2 DM Avoid NSAIDS. On Losartan. Assessment & Plan (06/18/2023 11:33 AM EST): Stable. Due to T2 DM Avoid NSAIDS. On Losartan. Encounters Date Type Department Care Team Description 11/24/2024 Refill [facility] [address] [place] [address] Jhonny Rai MD Other specified hypothyroidism 10/27/2024 1:00 PM EDT Office Visit [facility] [address] [place] [address] Elsa Miramontes NP Medicare annual wellness visit, subsequent (Primary Dx); Morbid (severe) obesity due to excess calories ([facility]); Body mass index (BMI) 40.0-44.9, adult ([facility]); Primary hypertension (CMS/HCC); CKD stage 3b, GFR 30-44 ml/min ([facility]); Other specified hypothyroidism; Type 2 diabetes mellitus with stage 3a chronic kidney disease, with long-term current use of insulin (HCC) (CMS/HCC); Type 2 diabetes mellitus with other specified complication, with long-term current use of insulin; Mixed hyperlipidemia ([facility]); Screening mammogram, encounter for 10/27/2024 Telephone [facility] [address] [place] [address] Elsa Miramontes NP 10/26/2024 Travel 10/12/2024 Clinisync Result Encounter [facility] External Department Unsolicited Provider, Generic External Data from Last 3 Months Family History Medical History Relation Name Comments Diabetes Brother Diabetes Father Asthma Mother Heart disease Mother Relation Name Status Comments Brother Father Mother Social History Tobacco Use Types Packs/Day Years Used Date Smoking Tobacco: Never Passive Smoke Exposure: Never Smokeless Tobacco: Never Tobacco Cessation:Counseling Given: Not Answered Alcohol Use Standard Drinks/Week Comments Never 0 [...] How often do you attend chur or christianity services? Patient declined 07/29/2024 Do you belong [...] Recorded Patient Health Questionnaire-2 Score 0 10/27/2024 [facility] Occupational Stress Questionnaire Answer Date Recorded [...] place to sleep or slept in a fci (including now)? No 06/17/2023 Housing Stability Vital Sign Answer Lenin e Recorded In the last 12 months, was t here a time when you were not able to pay the mortgage or rent on time? No 07/29/2024 Number of Times Moved in the Last Year Not on fi le 07/29/2024 At any time in the past 12 m [facility], were you homeless or living in a fci (including now)? No 07/29/2024 Comments Unknown Sex and Gender Information Value Date Recorded Sex Assigned at Not on file Legal Sex Female 1:21 PM EDT Gender Identity Not on file Sexual Orientation Not on file Last Filed Vital Signs Vital Sign Reading Time Taken Comments Blood Pressure 176/84 10/27/2024 1:04 PM EDT Pulse 81 10/27/2024 1:04 PM EDT Temperature 36.9 C (98.5 F) 10/27/2024 1:04 PM EDT Respiratory Rate 18 10/27/2024 1:04 PM EDT Oxygen Saturation 98% 10/27/2024 1:04 PM EDT Inhaled Oxygen Concentration - - Weight 112 kg (246 lb 6.4 oz) 10/27/2024 1:04 PM EDT Height 165.1 cm (5' 5 ) 08/12/2024 2:27 PM EST Body Mass Index 41 08/12/2024 2:27 PM EST Plan of Treatment Upcoming Encounters Date Type Department Care Team (Late st Contact Info) Description 01/26/2025 1:20 PM EDT Office Visit [facility] [address] [place] [phone] Elsa Miramontes NP [address] [place] [address] 10/28/2025 11:00 AM EDT Office Visit [facility] [address] [place] [address] Elsa Miramontes, DOWNSTREAM BIOMANUFACTURING TECHNICIAN [address] [place] [phone] Health Maintenance Due Date Last Done Comments Pneumococcal Vaccine: 65+ Ye ars (1 of 2 - PCV) 1964 Diabetes: Hemoglobin A1C 11/02/2024 025, 10/17/2023, 06/20/2023, Additional history exists Influenza Vaccine (Season Ended) 2025 Diabetes: Urine Protein Screening 08/04/2025 025, 06/20/2023 Medicare Annual Wellness (AWV) 10/27/2025 0 10/27/2024, 10/27/2024, 09/24/2023, Additional history exists Diabetes: Retinopathy Screening 05/29/2026 05/29/2024, 12/27/2023, 03/08/2023, Additional history exists Procedures Procedure Name Priority Date/Time Associated Diagnosis Comments [facility] PTH, INTRAOPERATIVE Routine 10/12/2024 2:23 PM EDT [facility] VITAMIN D 25 [place] Routine 10/12/2024 2 :23 PM EDT ALL MAGNESIUM Routine 10/12/2024 2:23 PM EDT ALL URIC ACID Routine 10/12/2024 2:23 PM EDT ALL RENAL FUNCTION PANEL Routine 10/12/2024 2:23 PM EDT [facility] CBC WITH PLATELET NO DIFFERENTIAL Routine 10/12/2024 2:23 PM EDT [facility] URINALYSIS, WITH MICROSCOPIC Routine 10/12/2024 2:11 PM EDT [facility] URINE T PROTEIN CREAT RATIO Routine 10/12/2024 2:11 PM EDT DIABETIC RETINOPATHY SCREENING - OU - BOTH EYES Routine 05/29/2024 10:51 AM EST from Last 3 Months or Most Recently Relevant to Health Maintenance Results * [facility] VITAMIN D 25 [place] (10/12/2024 2:23 PM EDT) Pathologist [facility] VITAMIN D 37.3 ng/mL [facility] Comment: <20 ng/mL Vit D deficient 20-<30 ng/mL Vit D insufficient 30-100 ng/mL Vit D sufficient >100 ng/mL Potential Toxicity 10/12/2024 2:23 PM EDT 10/12/2024 2:26 PM EDT Narrative CLINISYNC - 10/12/2024 4:20 PM EDT Generic External Data Provider CLINISYNC F inal Result Performing Organization Address [facility] Co de Phone Number [facility] * [facility] PTH, INTRAOPERATIVE (10/12/2024 2:23 PM EDT) Pathologist [facility] PTH, INTACT 61 15 - 65 pg/mL TB Comment: Performed at: - [facility] [id number] Transporter Radiology: Gerson Christiansen PhD, Phone: [phone] 10/12/2024 2:23 PM EDT 10/12/2024 2:26 PM EDT Narrative CLINISYNC - 10/13/2024 10:08 AM EDT Generic External Data Provider [facility]NC F inal Result [facility] * [facility] CBC WITH PLATELET NO DIFFERENTIAL (10/12/2024 2:23 PM EDT) [facility] WBC 9.5 4.0 - 11.0 10 3/uL TBH TBH RBC 4.63 4.20 - 5.40 10 6/uL TBH TBH HGB 13.1 12.0 - 16.0 g/dL TBH TBH HCT 40.3 36.0 - 48.0 % TBH TBH MCV 87.0 81.0 - 99.0 fL TBH TBH MCH 28.3 26.7 - 34.0 pg TBH TBH MCHC 32.5 29.9 - 35.2 g/dL TBH TBH RDW 14.2 11.0 - 15.0 % TBH TBH PLT 260 150 - 450 10 3/uL TBH TBH MPV 10.5 9.5 - 13.5 fL TBH 10/12/2024 2:23 PM EDT 10/12/2024 2:26 PM EDT Narrative CLINISYNC - 10/12/2024 3:01 PM EDT Generic External Data Provider [facility] F [facility]al Result [facility] * (ABNORMAL) ALL URIC ACID (10/12/2024 2:23 PM EDT) URIC ACID 6.6(H) 2.6 - 6.0 mg/dL TB 10/12/2024 2:23 PM EDT 10/12/2024 2:26 PM EDT Narrative CLINISYNC - 10/12/2024 4:05 PM EDT Generic External Data Provider CLINISYNC F inal Result Performing Organization Address City/[facility]/ZIP Co de Phone Number [facility] * (ABNORMAL) ALL RENAL FUNCTION PANEL (10/12/2024 2:23 PM EDT) SODIUM 138 136 - 145 mmol/L TBH POTASSIUM 3.7 3.5 - 5.1 mmol/L TBH CHLORIDE 100 98 - 107 mmol/L TBH CARBON DIOXIDE 30.6 21.0 - 32.0 mmol/L TBH ANION GAP 11.1 TBH GLUCOSE 151(H) 74 - 106 mg/dL TBH BLOOD UREA NITROGEN 18.0 7.0 - 18.0 mg/dL [facility] CREATININE 1.45(H) 0.55 - 1.02 mg/dL TBH TBH EGFR-AF PALESTINIAN 42(L) >=60 mL/min/1.7 3m 2 TBH TBH EGFR-NON AF PALESTINIAN 35(L) >=60 mL/min/1.7 3m 2 TBH BUN CREATININE RATIO 12.4 TBH CALCIUM 10.1 8.5 - 10.1 mg/dL TBH PHOSPHORUS 2.9 2.6 - 4.7 mg/dL TBH ALBUMIN LEVEL 3.6 3.4 - 5.0 g/dL TBH 10/12/2024 2:23 PM EDT 10/12/2024 2:26 PM EDT Narrative CLINISYNC - 10/12/2024 4:05 PM EDT Generic External Data Provider CLINISYNC F inal Result CLINISYNC [facility] * (ABNORMAL) ALL MAGNESIUM (10/12/2024 2:23 PM EDT) MAGNESIUM 1.7(L) 1.8 - 2.4 mg/dL TBH 10/12/2024 2:23 PM EDT 10/12/2024 2:26 PM EDT Narrative CLINISYNC - 10/12/2024 4:05 PM EDT Generic External Data Provider CLINISYNC F inal Result Performing Organization Address [facility]/ZIP Co de Phone Number CLINISYNC [facility] * (ABNORMAL) TBH URINE T PROTEIN CREAT RATIO (10/12/2024 2:11 PM EDT) TOTAL PROTEIN URINE RANDOM 7.7 <=11.9 mg/dL TBH CREATININE URINE RANDOM 15.40(L) 20.00 - 300.00 mg/dL TBH PROTEIN CREATININE RATIO URINE 0.50 TBH 10/12/2024 2:11 PM EDT 10/12/2024 2:26 PM EDT Narrative CLINISYNC - 10/12/2024 3:06 PM EDT Generic External Data Provider CLINISYNC F inal Result CLINISYNC [facility] * (ABNORMAL) [facility] URINALYSIS, WITH MICROSCOPIC (10/12/2024 2:11 PM EDT) COLOR URINE LT. YELLOW YELLOW TBH CLARITY URINE CLEAR CLEAR TBH SPECIFIC GRAVITY URINE <=1.005(A) 1.005 - 1.025 TBH PH URINE 6.5 5.0 - 9.0 TBH PROTEIN URINE NEGATIVE NEG/TRACE mg/dL TBH GLUCOSE URINE UA NEGATIVE NEGATIVE mg/dL [facility] BILIRUBIN URINE NEGATIVE NEGATIVE [facility] KETONES URINE NEGATIVE NEGATIVE mg/dL [facility] BLOOD URINE NEGATIVE NEGATIVE [facility] NITRITE URINE NEGATIVE NEGATIVE [facility] UROBILINOGEN URINE 0.2 0.2 - 1.0 EU/dL [facility] LEUKOCYTE ESTERASE URINE NEGATIVE NEGATIVE TBH TBH WBC 0-2(A) NONE SEEN #/HPF [facility] TB[facility] RBC 0-2 0 - 2 #/HPF [facility] BACTERIA URINE TRACE(A) NONE SEEN #/HPF [facility] MUCUS URINE NONE SEEN NONE SEEN [facility] SQUAMOUS EPITHELIAL CELL URINE FEW(A) NONE/RARE #/LPF [facility] CRYSTALS SEEN? None Seen None Seen #/HPF [facility] CAST SEEN? NONE SEEN NONE SEEN #/LPF [facility] 10/12/2024 2:11 PM EDT 10/12/2024 2:26 PM EDT Narrative [facility] - 10/12/2024 3:45 PM EDT Generic External Data Provider [facility]NC F inal Result CLINIS[facility]NC [facility] * Diabetic Retinopathy Screening - OU - Both Eyes (05/29/2024 10:51 AM EST) Anatomical Region Laterality Modality Head Other aCrin Brown DOWNSTREAM BIOMANUFACTURING TECHNICIAN OPHTH PHOTOGRAPHY Final Result from Last 3 Months or Most Recently Relevant to Health Maintenance Insurance [employer] Care Teams Quality Assurance Lab Technician Relationship Specialty Start Date End Date Jhonny Rai MD [address] [place] [address] PCP - General Family Medicine 02/13/24 Carin Brown NP [address] [place] [address] Nurse Practitioner Family Medicine 02/13/24
--- OUTSIDE RECORDS SUMMARY | 2024-11-26 10:04 | XMS_ITS | Clinical Summary ---
Author Organization [facility] Address [address] [place] [address] Care Team Providers Care Hostage Negotiator Name Role Phone Rafael Rojas Primary Care Provider Unavailabl e Social History Tobacco Use Types Packs/Day Years Used Date Smoking Tobacco: Never Assessed Comments Unknown Sex and Gender Information Value Date Recorded Sex Assigned at Not on file Legal Sex Female 6:37 AM EDT Gender Identity Not on file Sexual Orientation Not on file Plan of Treatment Not on file Care Teams Hostage Negotiator Relationship Specialty Start Date End Date Rafael Rojas PCP - General 04/26/15
--- OUTSIDE RECORDS SUMMARY | 2024-11-26 10:04 | XMS_ITS | Encounter Summary ---
Author Organization [facility] Address [address] [place] [address] Care Team Providers Care Residential Advisor Name Role Phone Shaikh AVA Oliveira Primary Care Provider [phone] Shaikh AVA Oliveira Primary Care Provider [phone] Jhonny Rai MD Primary Care Provider [phone] Carin Brown FUR SORTER Unavailable [phone] Reason for Visit * Reason Comments Med Refill Encounter Details Date Type Department Care Team (Late st Contact Info) Description 06/25/2023 [facility] [address] [place] [address] Shaikh Oliveira MD [address] [place] [address] Other specified hypothyroidism (CMS/HCC) (Primary Dx); Type 2 diabetes mellitus with stage 3a chronic kidney disease, with long-term current use of insulin (HCC) (CMS/HCC); Hyperlipidemia, unspecified hyperlipidemia type (CMS/HCC) Social History Tobacco Use Types Packs/Day Years [...] week 06/17/2023 How often do you attend [facility] or anabaptist services? Patient declined 06/17/2023 Do you belong to any clubs o r organizations such as congregational groups, unions, fraternal or athletic groups, or [...] and heating? Not hard at all 06/17/2023 [facility] of Occupat ional Health - Occupational Stress [...] place to sleep or slept in a jail (including now)? No 06/17/2023 Comments Unknown Sex and Gender Information Value Date Recorded Sex Assigned at Not on file Legal Sex Female 1:21 PM EDT Gender Identity Not on file Sexual Orientation Not on file documented as of this encounter Miscellaneous Notes * Telephone Encounter - Shaikh Roxanne MD - 06/25/2023 4:46 PM EST Approving, but needs appt for additional refills. documented in this encounter Plan of Treatment Upcoming Encounters Date Type Department Care Team (Late st Contact Info) Description 01/26/2025 1:20 PM EDT Office Visit [facility] [address] [place] [address] Elsa Miramontes NP [address] [place] [address] 10/28/2025 11:00 AM EDT Office Visit [facility] [address] [place] [address] Elsa Miramontes NP [address] [place] [address] documented as of this encounter Visit Diagnoses Diagnosis Other specified hypothyroidism- Primary Type 2 diabetes mellitus with stage 3a chronic kidney disease, with long-term current use of insulin (HCC) (CMS/HCC) Hyperlipidemia, unspecified hyperlipidemia type (CMS/HCC) documented in this encounter Care Teams Residential Advisor Relationship Specialty Start Date End Date Shaikh Oliveira MD PCP - General Internal Medicine 02/01/23 09/23/23 Shaikh Oliveira MD [address] [place] [address] PCP - General Internal Medicine 09/24/23 02/12/24 Jhonny Rai MD [address] [place] [address] PCP - General Family Medicine 02/13/24 Carin Brown NP [address] [place] [address] Nurse Practitioner Family Medicine 02/13/24 documented as of this encounter
--- OUTSIDE RECORDS SUMMARY | 2024-11-26 10:04 | XMS_ITS | Encounter Summary ---
Author Organization [facility] Address [address] [place] [address] Care Team Providers Care Television Cameraman Name Role Phone Jhonny Rai MD Primary Care Provider [phone] Carin Brown GROUP LEADER SEMICONDUCTOR PROCESSING Unavailable [phone] Encounter Details Date Type Department Care Team (Late st Contact Info) Description 06/01/2024 Orders Only [facility] [address] [place] [address] Carin Brown NP Social History Tobacco Use Types Packs/Day Years [...] How often do you attend chur or christian services? Patient declined 06/17/2023 Do you belong to any clubs o r organizations such as sikhism groups, unions, fraternal or athletic groups, or [...] Recorded Patient Health Questionnaire-2 Score 0 12/17/2023 [facility] - Occupational Stress Questionnaire Answer Date [...] place to sleep or slept in a snf (including now)? No 06/17/2023 Comments Unknown Sex [...] Visit [facility] [address] [place] [address] Elsa Miramontes NP [address] [place] [address] 10/28/2025 11:00 AM EDT Office Visit [facility] [address] [place] [address] Elsa Miramontes NP [address] [place] [address] documented as of this encounter Procedures Procedure Name Priority Date/Time Associated Diagnosis Comments DIABETIC RETINOPATHY SCREENING - OU - BOTH EYES Routine 05/29/2024 10:51 AM EST documented in this encounter Results * Diabetic Retinopathy Screening - OU - Both Eyes (05/29/2024 10:51 AM EST) Anatomical Region Laterality Modality Head Other Carin Brown GROUP LEADER SEMICONDUCTOR PROCESSING OPHTH PHOTOGRAPHY Final Result documented in this encounter Visit Diagnoses Not on filedocumented in this encounter Additional Health Concerns Assessment Noted Time PHQ-9 Depression Total Score: 0 09/24/19 24 10:00 AM EDT documented as of this encounter Care Teams Television Cameraman Relationship Specialty Start Date End Date Jhonny Rai MD [address] [place] [address] PCP - General Family Medicine 02/13/24 Carin Brown NP [address] [place] [address] Nurse Practitioner Family Medicine 02/13/24 documented as of this encounter
--- OUTSIDE RECORDS SUMMARY | 2024-11-26 10:04 | XMS_ITS | Encounter Summary ---
Author Organization [facility] Address [address] [place] [address] Care Team Providers Care Cell Plasterer Name Role Phone Jhonny Rai MD Primary Care Provider [phone] Carin Brown QUALITY IMPROVEMENT COORDINATOR Unavailable [phone] Encounter Details Date Type Department Care Team ([facility] st Contact Info) Description 06/08/2024 Orders Only [facility] [address] [place] [address] Cameron Mosher MD [address] [place] [address] [address] [place] [address] Social History Tobacco Use Types Packs/Day Years [...] 06/17/2023 How often do you attend chur ch or uatsdin services? Patient declined 06/17/2023 Do you belong to any clubs o r organizations such as denominational groups, unions, fraternal or athletic groups, or [...] Recorded Patient Health Questionnaire-2 Score 0 12/17/2023 [facility] Occupat ional [facility] - Occupational Stress Questionnaire Answer Date Recorded [...] place to sleep or slept in a [place] [facility] [place] facility (including now)? No 06/17/2023 Comments Unknown Sex [...] Office Visit [facility] [address] [place] [address] Elsa Miramontes NP [address] [place] [address] 10/28/2025 11:00 AM EDT Office Visit [facility] [address] [place] [address] Elsa Miramontes NP [address] [place] [address] documented as of this encounter Procedures Procedure Name Priority Date/Time Associated Diagnosis Comments DIABETES EYE EXAM Routine 06/08/2024 3:42 PM EST documented in this encounter Results * Diabetes Eye Exam (06/08/2024 3:42 PM EST) us Cameron Mosher MD HEALTH MAINTENANCE Final Resul t documented in this encounter Visit Diagnoses Not on filedocumented in this encounter Additional Health Concerns Assessment Noted Time PHQ-9 Depression Total Score: 0 09/24/19 24 10:00 AM EDT documented as of this encounter Care Teams Cell Plasterer Relationship Specialty Start Date End Date Jhonny Rai MD [address] [place] [address] PCP - General Family Medicine 02/13/24 Carin Brown NP [address] [place] [address] Nurse Practitioner Family Medicine 02/13/24 documented as of this encounter
--- OUTSIDE RECORDS SUMMARY | 2024-11-26 10:04 | XMS_ITS | Encounter Summary ---
Author Organization [facility] Address [address] [place] [address] Care Team Providers Care Associate Professor Of Musicology Name Role Phone Shaikh AVA Oliveira Primary Care Provider [phone] Shaikh AVA Oliveira Primary Care Provider [phone] Jhonny Rai MD Primary Care Provider [phone] Carin Brown NP Unavailable [phone] Encounter Details Date Type Department Care Team (Late st Contact Info) Description 07/10/2023 Clinisync Result Encounter [facility] External Department Unsolicited Shaikh Oliveira MD [address] [place] [address] Social History Tobacco Use Types Packs/Day Years [...] How often do you attend chur or jew services? Patient declined 06/17/2023 Do you belong to any clubs o r organizations such as zoroastrianism groups, unions, fraternal or athletic groups, or [...] and heating? Not hard at all 06/17/2023 [facility] - Occupational Stress Questionnaire Answer Date [...] place to sleep or slept in a halfway (including now)? No 06/17/2023 Comments Unknown Sex [...] Office Visit [facility] [address] [place] [address] Elsa Miramontes NP [address] [place] [address] 10/28/2025 11:00 AM EDT Office Visit [facility] [address] [place] [address] Elsa Miramontes NP [address] [place] [address] documented as of this encounter Procedures Procedure Name Priority Date/Time Associated Diagnosis Comments MM TOMOSYNTHESIS SCREENING BI 07/10/2023 10:39 AM EST documented in this encounter Results * MM TOMOSYNTHESIS SCREENING BI (07/10/2023 10:39 AM EST) Anatomical Region Laterality Modality Other 07/10/2023 10:3 9 AM EST Narrative 07/10/2023 10:40 AM EST [address] [address] Mammography Report Signed Patient: EILEEN CALDERA MR#: [id number] : 1945 Acct:[id number] Age/Sex: 78 / F ADM Date: 07/10/23 Loc: MAMMO Attending Dr: Shaikh Roxanne Zaman Ordering Physician: Shaikh Austyn Oliveira Results: Date of Service: 07/10/23 Follow Up: Procedure(s): MM tomosynthesis screening BI Accession Number(s): [id number] cc: Shaikh Austyn Oliveira Patient Name: EILEEN CALDERA MR#: [id number] : 1945 Exam Date: 07/10/2023 Ordering Doctor: Shaikh Anni De Leon RADIOLOGY REPORT PROCEDURE: MM TOMOSYNTHESIS SCREENING BI COMPARISON: MG MAMM SCREEN MIRTA W CAD, 04/11/2020. MG MAMM SCREEN 3D MIRTA CAD, 05/04/2022. INDICATIONS: screening Calculator Name NCI Breast Cancer Risk Assessment Tool 5 Year Breast Cancer Risk 2.40% Lifetime Breast Cancer Risk 4.60% Personal Breast Cancer No Personal Ovarian Cancer No Treatments None Family Cancers None LOCATION: [facility] BREAST COMPOSITION: Scattered areas fibroglandular density. FINDINGS: DIAGNOSTIC CATEGORY 1--NEGATIVE. NO CHANGE FROM COMPARISON ASSESSMENT. Scattered benign-appearing calcifications are present. Scattered benign-appearing lymph nodes are present. . RIGHT BREAST: No significant suspicious finding. Irregular density in the right axillary tail is a skin lesion/small period LEFT BREAST: No significant suspicious finding. RECOMMENDATIONS: ROUTINE MAMMOGRAM AND CLINICAL EVALUATION IN 12 MONTHS. PLEASE NOTE: A NORMAL MAMMOGRAM DOES NOT EXCLUDE THE POSSIBILITY OF BREAST CANCER. A CLINICALLY SUSPICIOUS PALPABLE LUMP SHOULD BE BIOPSIED. Dictated by: Cameron Garcia MD on 07/10/2023 at 10:37 Approved by: Cameron Garcia MD on 07/10/2023 at 10:39 Dictated By: Cameron Garcia M.D. Signed By: 07/10/23 1040 DD/ 1039 TD/TT: Corporate Claims Examiner: Procedure Note Radiology, Radiologist, - 07/11/[address] [place] [address] Mammography Report Signed Patient: EILEEN CALDERA MMR#: [id number] : 1945cct:[id number] Age/Sex: 78 / FADM Date: 07/10/23 Loc: MAMMO Attending Dr: Shaikh Roxanne Zaman Ordering Physician: Shaikh Austyn OliveiraResults: Date of Service: 07/10/23Follow Up: Procedure(s): MM tomosynthesis screening BI Accession Number(s): [id number] cc: Shaikh Austyn Oliveira Patient Name: EILEEN CALDERA MR#: [id number] : 1945 Exam Date: 07/10/2023 Ordering Doctor: Shaikh Anni De Leon RADIOLOGY REPORT PROCEDURE: MM TOMOSYNTHESIS SCREENING BI COMPARISON: MG MAMM SCREEN MIRTA W CAD, 04/11/2020. MG MAMM SCREEN 3DBIL CAD, 05/04/2022. INDICATIONS: screening Calculator Name NCI Breast Cancer Risk Assessment Tool 5 Year Breast Cancer Risk 2.40% Lifetime Breast Cancer Risk 4.60% Personal Breast Cancer No Personal Ovarian Cancer No Treatments None Family Cancers None LOCATION: [facility] BREAST COMPOSITION: Scattered areas fibroglandular density. FINDINGS: DIAGNOSTIC CATEGORY 1--NEGATIVE. NO CHANGE FROM COMPARISON ASSESSMENT. Scattered benign-appearing calcifications are present. Scattered benign-appearing lymph nodes are present. . RIGHT BREAST: No significant suspicious finding. Irregular density inthe right axillary tail is a skin lesion/small period LEFT BREAST: No significant suspicious finding. RECOMMENDATIONS: ROUTINE MAMMOGRAM AND CLINICAL EVALUATION IN 12 MONTHS. PLEASE NOTE: A NORMAL MAMMOGRAM DOES NOT EXCLUDE THE POSSIBILITY OFBREAST CANCER. A CLINICALLY SUSPICIOUS PALPABLE LUMP SHOULD BE BIOPSIED. Dictated by: Cameron Garcia MD on 07/10/2023 at 10:37 Approved by: Cameron Garcia MD on 07/10/2023 at 10:39 Dictated By: Cameron Garcia M.D. Signed By:07/10/23 1040 DD/ 1039 TD/TT: Corporate Claims Examiner: us Shaikh Roxanne [facility] Final Result documented in this encounter Visit Diagnoses Not on filedocumented in this encounter Care Teams Associate Professor Of Musicology Relationship Specialty Start Date End Date Shaikh Oliveira MD PCP - General Internal Medicine 02/01/23 09/23/23 Shaikh Oliveira MD [address] [place] [address] PCP - General Internal Medicine 09/24/23 02/12/24 Jhonny Rai MD [address] [place] [address] PCP - General Family Medicine 02/13/24 Carin Brown NP [address] [place] [address] Nurse Practitioner Family Medicine 02/13/24 documented as of this encounter
--- NOTE | 2024-11-26 10:05 | MM_ITS ---
Patient Name: RICARDO GRIJALVA MR#: [id number] : 1945 Exam Date: 11/26/2024 Ordering Doctor: AMADEO MCCRAY CNP RADIOLOGY REPORT PROCEDURE: MM TOMOSYNTHESIS SCREENING BI COMPARISON: MM TOMOSYNTHESIS SCREENING BI, 07/10/2023. MG MAMM SCREEN 3D MIRTA CAD, 05/04/2022. MG MAMM SCREEN MIRTA W CAD, 04/11/2020. MG MAMM MIRTA SCRN W CAD DIG, 04/28/2013. INDICATIONS: Screening Calculator Name NCI Breast Cancer Risk Assessment Tool 5 Year Breast Cancer Risk 2.40% Lifetime Breast Cancer Risk 4.30% Personal Breast Cancer No Personal Ovarian Cancer No Treatments None Family Cancers None LOCATION: The [facility] BREAST COMPOSITION: There are scattered areas of fibroglandular density. FINDINGS: RIGHT BREAST: No significant suspicious finding. Similar focal asymmetries are present. Benign-appearing calcifications are present. Benign-appearing lymph nodes are noted along the chest wall. LEFT BREAST: No significant suspicious finding. Benign-appearing lymph nodes are noted along the chest wall. Similar focal asymmetries are present. DIAGNOSTIC CATEGORY 2--BENIGN FINDING. NO CHANGE FROM COMPARISON. RECOMMENDATIONS: ROUTINE MAMMOGRAM AND CLINICAL EVALUATION IN 12 MONTHS. PLEASE NOTE: A NORMAL MAMMOGRAM DOES NOT EXCLUDE THE POSSIBILITY OF BREAST CANCER. A CLINICALLY SUSPICIOUS PALPABLE LUMP SHOULD BE BIOPSIED. Dictated by: Sean Perez MD on 11/26/2024 at 14:43 Approved by: Sean Perez MD on 11/26/2024 at 14:49
== END 2024-11-26 10:02 | disposition home or self-care (01) ==
LOC: MAMMO 10:01
PROVIDERS: PCP Nurse Practitioner; Visit Provider Nurse Practitioner
DX: Z12.31 Encounter for screening mammogram for malignant neoplasm of breast (principal)
CPT/HCPCS: 77063; 77067

== ENCOUNTER 2025-01-22 12:43 | Outpatient (OUT) | payer MEDICARE, OTHER, SELFPAY ==
--- OUTSIDE RECORDS SUMMARY | 2025-01-22 12:49 | XMS_ITS | Encounter Summary ---
Author Organization [facility] Address [address] [place] [address] Care Team Providers Care Export Agent Name Role Phone Shaikh AVA Oliveira Primary Care Provider [phone] Shaikh AVA Oliveira Primary Care Provider [phone] Jhonny Rai MD Primary Care Provider [phone] Carin Brown HYDRAULIC CHAIR ASSEMBLER Unavailable [phone] Reason for Visit * Reason Comments Med Refill Encounter Details Date Type Department Care Team (Late st Contact Info) Description 09/09[facility]2023 [facility] [address] [place] [address] Shaikh Oliveira MD [address] [place] [address] Type 2 diabetes mellitus with stage 3a chronic kidney disease, with long-term current use of insulin (HCC) Social History Tobacco Use Types Packs/Day Years [...] How often do you attend chur or yarsanism services? Patient declined 06/17/2023 Do you belong to any clubs o r organizations such as hinduism groups, unions, fraternal or athletic groups, or [...] and heating? Not hard at all 06/17/2023 [facility] of Occupat ional Health [...] place to sleep or slept in a fdc (including now)? No 06/17/2023 Comments Unknown Sex [...] [facility] [address] [place] [address] Elsa Miramontes, MONIQUE [address] [place] [address] 10/28/2025 11:00 AM EDT Office Visit [facility] [address] [place] [address] Elsa Miramontes NP [address] [place] [address] documented as of this encounter Visit Diagnoses Diagnosis Type 2 diabetes mellitus with stage 3a chronic kidney disease, with long-term current use of insulin (HCC) documented in this encounter Care Teams Export Agent Relationship Specialty Start Date End Date Shaikh Oliveira MD PCP - General Internal Medicine 02/01/23 09/23/23 Shaikh Oliveira MD [address] [place] [address] PCP - General Internal Medicine 09/24/23 02/12/24 Jhonny Rai MD [address] [place] [address] PCP - General Family Medicine 02/13/24 Carin Brown NP [address] [place] [address] Nurse Practitioner Family Medicine 02/13/24 documented as of this encounter
--- OUTSIDE RECORDS SUMMARY | 2025-01-22 12:49 | XMS_ITS | Encounter Summary ---
Author Organization [facility] Address [address] [place] [address] Care Team Providers Care Rafter Cutting Machine Operator Name Role Phone Shaikh AVA Oliveira Primary Care Provider [phone] Shaikh AVA Oliveira Primary Care Provider [phone] Jhonny Rai MD Primary Care Provider [phone] Carin Brown NP Unavailable [phone] Encounter Details Date Type Department Care Team (Late st Contact Info) Description 07/10/2023 Clinisync Result Encounter [facility] External Department Unsolicited Shaikh Oliveira MD [address] [place] [address] Social History Tobacco Use Types Packs/Day Years [...] How often do you attend chur or zoroastrian services? Patient declined 06/17/2023 Do you belong to any clubs o r organizations such as mandaeism groups, unions, fraternal or athletic groups, or [...] and heating? Not hard at all 06/17/2023 [facility] - Occupational Stress Questionnaire Answer Date [...] [facility] [address] [place] [address] Elsa Miramontes NP [address] [place] [address] 10/28/2025 11:00 AM EDT Office Visit [facility] [address] [place] [address] Elsa Miramontes NP [address] [place] [address] documented as of this encounter Procedures Procedure Name Priority Date/Time Associated Diagnosis Comments MM TOMOSYNTHESIS SCREENING BI 07/10/2023 10:39 AM EST documented in this encounter Results * MM TOMOSYNTHESIS SCREENING BI (07/10/2023 10:39 AM EST) Anatomical Region Laterality Modality Other 07/10/2023 10:3 9 AM EST Narrative 07/10/2023 10:40 AM EST [address] [address] Mammography Report Signed Patient: EILEEN CALDERA MR#: [id number] : 1945 Acct:[id number] Age/Sex: 78 / F ADM Date: 07/10/23 Loc: MAMMO Attending Dr: Shaikh Roxanne Zaman Ordering Physician: Shaikh Austyn Oliveira Results: Date of Service: 07/10/23 Follow Up: Procedure(s): MM tomosynthesis screening BI Accession Number(s): [id number] cc: Shaikh Austyn Oliveira Patient Name: EILEEN CALDERA MR#: [id number] : 1945 Exam Date: 07/10/2023 Ordering Doctor: [...] Treatments None Family Cancers None LOCATION: [facility] BREAST COMPOSITION: Scattered areas fibroglandular density. [...] Signed By: 07/10/23 1040 DD/ 1039 TD/TT: Medical Insurance Clerk: Procedure Note Radiology, Radiologist, - 07/11/2023 [place] [address] Mammography Report Signed Patient: EILEEN CALDERA MMR#: [id number] : 1945cct:[id number] Age/Sex: 78 / FADM Date: 07/10/23 Loc: MAMMO Attending Dr: Shaikh Roxanne Zaman Ordering Physician: Shaikh Austyn OliveiraResults: Date of Service: 07/10/23Follow Up: Procedure(s): MM tomosynthesis screening BI Accession Number(s): [id number] cc: Shaikh Austyn Oliveira Patient Name: EILEEN CALDERA MR#: [id number] : 1945 Exam Date: 07/10/2023 Ordering Doctor: [...] Treatments None Family Cancers None LOCATION: [facility] BREAST COMPOSITION: Scattered areas fibroglandular density. [...] M.D. Signed By:07/10/23 1040 DD/ 1039 TD/TT: Medical Insurance Clerk: us Shaikh Roxanne [facility] Final Result documented in this encounter Visit Diagnoses Not on filedocumented in this encounter Care Teams Rafter Cutting Machine Operator Relationship Specialty Start Date End Date Shaikh Oliveira MD PCP - General Internal Medicine 02/01/23 09/23/23 Shaikh Oliveira MD [address] [place] [address] PCP - General Internal Medicine 09/24/23 02/12/24 Jhonny Rai MD [address] [place] [address] PCP - General Family Medicine 02/13/24 Carin Brown NP [address] [place] [address] Nurse Practitioner Family Medicine 02/13/24 documented as of this encounter
--- OUTSIDE RECORDS SUMMARY | 2025-01-22 12:49 | XMS_ITS | Clinical Summary ---
Author Organization [facility] Address [address] [place] [address], [address] [place] [address] Care Team Providers Care Party Demonstrator Name Role Phone Rafael Rojas Primary Care Provider Unavailabl e Social History Tobacco Use Types Packs/Day Years Used Date Smoking Tobacco: Never Assessed Comments Unknown Sex and Gender Information Value Date Recorded Sex Assigned at Not on file Legal Sex Female 6:37 AM EDT Gender Identity Not on file Sexual Orientation Not on file Plan of Treatment Not on file Care Teams Party Demonstrator Relationship Specialty Start Date End Date Rafael Rojas PCP - General 04/26/15
--- OUTSIDE RECORDS SUMMARY | 2025-01-22 12:49 | XMS_ITS | Encounter Summary ---
Author Organization [facility] Address [address] [place] [address] Care Team Providers Care Vaccine Manager Name Role Phone Shaikh AVA Oliveira Primary Care Provider [phone] Shaikh AAV Oliveira Primary Care Provider [phone] Jhonny Rai MD Primary Care Provider [phone] Carin Brown DOUBLE SURFACE OPERATOR Unavailable [phone] Encounter Details Date Type Department Care Team (Late st Contact Info) Description 07/11/2023 Orders Only [facility] [address] [address] Shaikh Oliveira MD [address] [place] [address] Social History Tobacco Use Types Packs/Day Years [...] How often do you attend chur or evangelical services? Patient declined 06/17/2023 Do you belong to any clubs o r organizations such as scientology groups, unions, fraternal or athletic groups, or [...] and heating? Not hard at all 06/17/2023 [facility] of Occupat ional Health - Occupational Stress [...] place to sleep or slept in a penitentiary (including now)? No 06/17/2023 Comments Unknown Sex [...] Office Visit [facility] [address] [place] [address] Elsa Miramontes NP [address] [place] [phone] 10/28/2025 11:00 AM EDT Office Visit [facility] [address] [place] [address] Elsa Miramontes NP [address] [place] [phone] documented as of this encounter Procedures Procedure [...] on filedocumented in this encounter Care Teams Vaccine Manager Relationship Specialty Start Date End Date Shaikh Oliveira MD PCP - General Internal Medicine 02/01/23 09/23/23 Shaikh Oliveira MD [address] [place] [phone] PCP - General Internal Medicine 09/24/23 02/12/24 Jhonny Rai MD [address] [place] [address] PCP - General Family Medicine 02/13/24 Carin Brown NP [address] [place] [address] Nurse Practitioner Family Medicine 02/13/24 documented as of this encounter
--- OUTSIDE RECORDS SUMMARY | 2025-01-22 12:49 | XMS_ITS | Encounter Summary ---
Author Organization [facility] Address [address] [place] [address] Care Team Providers Care Boring Machine Set Up Operator Name Role Phone Jhonny Rai MD Primary Care Provider [phone] Carin Brown MEDICINE WORKER Unavailable [phone] Encounter Details Date Type Department Care Team ([facility] st Contact Info) Description 06/08/2024 Orders Only [facility] [address] [place] [phone] Cameron Mosher MD [address] [place] [address] [address] [place] [address] Social History Tobacco Use Types Packs/Day Years [...] often do you attend chur ch or sabianism services? Patient declined 06/17/2023 Do you belong to any clubs o r organizations such as advent groups, unions, fraternal or athletic groups, or [...] Recorded Patient Health Questionnaire-2 Score 0 12/17/2023 [facility] of Occupat ional [facility] - Occupational Stress Questionnaire Answer [...] Visit [facility] [address] [place] [address] Elsa Miramontes NP [address] [place] [address] 10/28/2025 11:00 AM EDT Office Visit [facility] [address] [place] [address] Elsa Miramontes NP [address] [place] [phone] documented as of this encounter Procedures Procedure [...] documented as of this encounter Care Teams Boring Machine Set Up Operator Relationship Specialty Start Date End Date Jhonny Rai MD [address] [place] [address] PCP - General Family Medicine 02/13/24 Carin Brown NP [address] [place] [address] Nurse Practitioner Family Medicine 02/13/24 documented as of this encounter
--- OUTSIDE RECORDS SUMMARY | 2025-01-22 12:49 | XMS_ITS | Encounter Summary ---
Author Organization [facility] Address [address] [place] [address] Care Team Providers Care Traffic Worker Name Role Phone Shaikh AVA Oliveira Primary Care Provider [phone] Shaikh AVA Oliveira Primary Care Provider [phone] Jhonny Rai MD Primary Care Provider [phone] Carin Brown SHORTAGE WORKER Unavailable [phone] Reason for Visit * Reason Comments Med Refill Encounter Details Date Type Department Care Team (Late st Contact Info) Description 07/08/2023 [facility] [address] [place] [address] Shaikh Oliveira MD [address] [place] [address] Type 2 diabetes mellitus with stage 3a chronic kidney disease, with long-term current use of insulin (HCC) (Primary Dx) Social History Tobacco Use Types [...] How often do you attend chur or lutheran services? Patient declined 06/17/2023 Do you belong to any clubs o r organizations such as oriental orthodox groups, unions, fraternal or athletic groups, or [...] and heating? Not hard at all 06/17/2023 [facility] of Occupat ional Health - Occupational Stress [...] place to sleep or slept in a correction (including now)? No 06/17/2023 Comments Unknown Sex [...] Visit [facility] [address] [place] [address] Elsa Miramontes NP [address] [place] [address] 10/28/2025 11:00 AM EDT Office Visit [facility] [address] [place] [address] Elsa Miramontes NP [address] [place] [address] documented as of this encounter Visit Diagnoses Diagnosis Type 2 diabetes mellitus with stage 3a chronic kidney disease, with long-term current use of insulin (HCC)- Primary documented in this encounter Care Teams Traffic Worker Relationship Specialty Start Date End Date Shaikh Oliveira MD PCP - General Internal Medicine 02/01/23 09/23/23 Shaikh Oliveira MD [address] [place] [address] PCP - General Internal Medicine 09/24/23 02/12/24 Jhonny Rai MD [address] [place] [address] PCP - General Family Medicine 02/13/24 Carin Brown NP [address] [place] [address] Nurse Practitioner Family Medicine 02/13/24 documented as of this encounter
--- OUTSIDE RECORDS SUMMARY | 2025-01-22 12:49 | XMS_ITS | Encounter Summary ---
Author Organization [facility] Address [address] [place] [address] Care Team Providers Care Spike Machine Feeder Name Role Phone Jhonny Rai MD Primary Care Provider [phone] Carin Brown POLE SHAVER HELPER Unavailable [phone] Encounter Details Date Type Department Care Team (Late st Contact Info) Description 06/01/2024 Orders Only [facility] [address] [place] [address] Carin Brown NP Social History [...] How often do you attend chur or latter day services? Patient declined 06/17/2023 Do you belong [...] Recorded Patient Health Questionnaire-2 Score 0 12/17/2023 [facility] - Occupational Stress Questionnaire Answer Date [...] Visit [facility] [address] [place] [address] Elsa Miramontes NP [address] [place] [address] 10/28/2025 11:00 AM EDT Office Visit [facility] [address] [place] [address] Elsa Miramontes NP [address] [place] [address] documented as of this encounter Procedures Procedure Name Priority Date/Time Associated Diagnosis Comments DIABETIC RETINOPATHY SCREENING - OU - BOTH EYES Routine 05/29/2024 10:51 AM EST documented in this encounter Results * Diabetic Retinopathy Screening - OU - Both Eyes (05/29/2024 10:51 AM EST) Anatomical Region Laterality Modality Head Other Carin Brown POLE SHAVER HELPER OPHTH PHOTOGRAPHY Final Result documented in this encounter Visit Diagnoses Not on filedocumented in this encounter Additional Health Concerns Assessment Noted Time PHQ-9 Depression Total Score: 0 09/24/19 24 10:00 AM EDT documented as of this encounter Care Teams Spike Machine Feeder Relationship Specialty Start Date End Date Jhonny Rai MD [address] [place] [address] PCP - General Family Medicine 02/13/24 Carin Brown NP [address] [place] [address] Nurse Practitioner Family Medicine 02/13/24 documented as of this encounter
--- OUTSIDE RECORDS SUMMARY | 2025-01-22 12:49 | XMS_ITS | Encounter Summary ---
Author Organization [facility] Address [address] [place] [address] Care Team Providers Care Anthropology Department Chair Name Role Phone Shaikh AVA Oliveira Primary Care Provider [phone] Shaikh AVA Oliveira Primary Care Provider [phone] Jhonny Rai MD Primary Care Provider [phone] Carin Brown CLAY ARTISAN Unavailable [phone] Reason for Visit * Reason Comments Med Refill Encounter Details Date Type Department Care Team (Late st Contact Info) Description 06/25[facility]2023 [facility] [address] [place] [address] Shaikh Oliveira MD [address] [place] [address] Other specified hypothyroidism (Primary Dx); Type 2 diabetes mellitus with stage 3a chronic kidney disease, with long-term current use of insulin (HCC); Hyperlipidemia, unspecified hyperlipidemia type Social History Tobacco Use Types Packs/Day Years [...] How often do you attend chur or jehovah's witness services? Patient declined 06/17/2023 Do you belong to any clubs o r organizations such as gnosticist groups, unions, fraternal or athletic groups, or [...] and heating? Not hard at all 06/17/2023 [facility] of Occupat ional Health - Occupational Stress [...] place to sleep or slept in a group home (including now)? No 06/17/2023 Comments Unknown Sex [...] Visit [facility] [address] [place] [address] Elsa Miramontes NP [address] [place] [address] 10/28/2025 11:00 AM EDT Office Visit [facility] [address] [place] [address] Elsa Miramontes NP [address] [place] [address] documented as of this encounter Visit Diagnoses Diagnosis Other specified hypothyroidism- Primary Type 2 diabetes mellitus with stage 3a chronic kidney disease, with long-term current use of insulin (HCC) Hyperlipidemia, unspecified hyperlipidemia type documented in this encounter Care Teams Anthropology Department Chair Relationship Specialty Start Date End Date Shaikh Oliveira MD PCP - General Internal Medicine 02/01/23 09/23/23 Shaikh Oliveira MD [address] [place] [address] PCP - General Internal Medicine 09/24/23 02/12/24 Jhonny Rai MD [address] [place] [address] PCP - General Family Medicine 02/13/24 Carin Brown NP [address] [place] [phone] Nurse Practitioner Family Medicine 02/13/24 documented as of this encounter
--- OUTSIDE RECORDS SUMMARY | 2025-01-22 12:49 | XMS_ITS | Encounter Summary ---
Author Organization [facility] Address [address] [place] [address] Care Team Providers Care Polisher Aluminum Name Role Phone Shaikh AVA Oliveira Primary Care Provider [phone] Jhonny Rai MD Primary Care Provider [phone] Carin Brown RN ANGIOGRAPHY Unavailable [phone] Encounter Details Date Type Department Care Team (Late st Contact Info) Description 01/06/2024 Orders Only [facility] [address] [place] [address] Cameron Mosher MD [address] [address] Social History Tobacco Use Types [...] How often do you attend chur or voodoo services? Patient declined 06/17/2023 Do you belong to any clubs o r organizations such as anabaptism groups, unions, fraternal [...] Recorded Patient Health Questionnaire-2 Score 0 12/17/2023 [facility] Questionnaire Answer Date [...] place to sleep or slept in a senior care (including now)? No 06/17/2023 Comments Unknown Sex [...] Office Visit [facility] [address] [place] [address] Elsa Miramontes NP [address] [place] [address] 10/28/2025 11:00 AM EDT Office Visit [facility] [address] [place] [address] Elsa Miramontes NP [address] [place] [address] documented as of this encounter Procedures Procedure [...] documented as of this encounter Care Teams Polisher Aluminum Relationship Specialty Start Date End Date Shaikh Oliveira MD [address] [place] [phone] PCP - General Internal Medicine 09/24/23 02/12/24 Jhonny Rai MD [address] [place] [address] PCP - General Family Medicine 02/13/24 Carin Brown NP [address] [place] [address] Nurse Practitioner Family Medicine 02/13/24 documented as of this encounter
--- OUTSIDE RECORDS SUMMARY | 2025-01-22 12:50 | XMS_ITS | Clinical Summary ---
Author Organization [facility] Healthcare Address [address] [place] [address] Care Team Providers Care Bar Pilot Name Role Phone Jhonny Rai MD Primary Care Provider [phone] Carin Brown ANTISQUEAK APPLIER Unavailable [phone] Allergies Active Allergy Reactions Criticality Noted Date [...] Active Ozempic, 1 MG/DOSE, 4 MG/3ML solution pen-injectorIndica tions:Type 2 diabetes mellitus with stage 3a chronic kidney disease, with long-term current use of insulin (HCC) INJECT 1 MG SUBCUTANEOUSLY ONCE WEEKLY 9 mL 3 02/14/20 24 Active alendronate (Fosamax) 35 MG tabletIndications: Osteoporosis without current pathological fracture, unspecified osteoporosis type TAKE 1 TABLET BY MOUTH WEEKLY WITH 8 OZ OF PLAIN WATER 30 MINUTES BEFORE FIRST FOOD, DRINK OR MEDS. STAY UPRIGHT FOR 30 MINS 12 tablet 3 02/14/20 24 Active glipiZIDE (Glucotrol) 10 MG tabletIndications: Type 2 diabetes mellitus with stage 3a chronic kidney disease, with long-term current use of insulin (HCC) TAKE 1 TABLET BY MOUTH DAILY 90 tablet 3 02/18/20 24 Active atorvastatin (Lipitor) 20 MG tabletIndications: Hyperlipidemia, unspecified hyperlipidemia type TAKE 1 TABLET BY MOUTH DAILY 90 tablet 3 02/18/20 24 Active losartan (Cozaar) 100 MG tabletIndications: Primary hypertension TAKE 1 TABLET BY MOUTH DAILY 90 tablet 3 02/18/20 24 Active furosemide (Lasix) 40 MG tabletIndications: Primary hypertension,Stage 3a chronic kidney disease ([facility]) TAKE 1 TABLET BY MOUTH DAILY 90 tablet 3 02/18/20 24 Active metFORMIN (Glucophage) 500 MG tabletIndications: Type 2 diabetes mellitus with stage 3a chronic kidney disease, with long-term current use of insulin ([facility]) TAKE 1 TABLET BY MOUTH EVERY 12 HOURS 180 tablet 3 02/18/20 24 Active insulin lispro (HumaLOG KWIKPEN) 100 UNIT/ML injectionIndicatio ns:Type 2 diabetes mellitus with stage 3a chronic kidney disease, with long-term current use of insulin ([facility]) INJECT 12 UNITS WITH BREAKFAST, LUNCH, AND 8 UNITS WITH DINNER. FOR FSBS 150-200 6 UNITS, 201-250 8 UNITS, 251-300 10 UNITS MAX 50 UNITS/DAY 48 mL 1 05/27/20 24 Active amLODIPine (Norvasc) 10 MG tabletIndications: Primary hypertension Take 0.5 tablets (5 mg) by mouth Daily 90 tablet 08/12/19 25 026 Active Lantus SoloStar 100 UNIT/ML penIndications:Typ e 2 diabetes mellitus with stage 3a chronic kidney disease, with long-term current use of insulin ([facility]) INJECT SUBCUTANEOUSLY 70 UNITS AT BEDTIME 75 mL 3 08/26/19 25 Active carvedilol (Coreg) 6.25 MG tablet Take 6.25 mg by mouth in the morning and 6.25 mg in the evening. Take with meals. 10/16/19 25 Active levothyroxine (Synthroid) 88 MCG tabletIndications: Other specified hypothyroidism Take 1 tablet (88 mcg) by mouth Daily 90 tablet 11/25/19 25 025 Active Active Problems Problem Noted Date Diagnosed Date [...] disease, with long-term current use of insulin 06/18/2023 10/27/2024 Overview (09/07/2024): Per nephrology on [...] home glucose monitoring noted. DM Eye Exam: [facility] 2023 Assessment & Plan (04/09/2024 11:02 [...] interested at this time. DM Eye Exam: [facility] 2023 No medication adverse effects [...] labs. No changes made. Other hyperlipidemia 06/18/2023 04/2 025 Assessment & Plan (08/12/2024 2:55 PM [...] lipid panel Stage 3a chronic kidney disease 06/18/2023 10/27/2024 Assessment & Plan (12/17/2023 1:24 PM EDT): Stable. Due to T2 DM Avoid NSAIDS. On Losartan, lasix for volume control. Assessment & Plan (09/24/2023 10:29 AM EDT): Stable. Due to T2 DM Avoid NSAIDS. On Losartan. Assessment & Plan (06/18/2023 11:33 AM EST): Stable. Due to T2 DM Avoid NSAIDS. On Losartan. Encounters Date Type Department Care Team Description 11/26/2024 Clinisync Result Encounter [facility] External Department Unsolicited Elsa Miramontes NP 11/24/2024 Refill [facility] [address] [place] [id number] Jhonny Rai MD Other specified hypothyroidism 10/27/2024 1:00 PM EDT Office Visit [facility] [address] [place] [phone] Elsa Miramontes NP Medicare annual wellness visit, subsequent (Primary Dx); Morbid (severe) obesity due to excess calories ([facility]); Body mass index (BMI) 40.0-44.9, adult ([facility]); Primary hypertension ; CKD stage 3b, GFR 30-44 ml/min ([facility]); Other specified hypothyroidism ; Type 2 diabetes mellitus with stage 3a chronic kidney disease, with long-term current use of insulin (HCC); Type 2 diabetes mellitus with other specified complication, with long-term current use of insulin (HCC); Mixed hyperlipidemia ; Screening mammogram, encounter for 10/27/2024 Telephone [facility] [address] [place] [phone] Elsa Miramontes NP 10/26/2024 Travel from Last 3 Months Family History Medical [...] week 07/29/2024 How often do you attend [facility] or [facility] services? Patient declined 07/29/2024 Do you belong [...] Recorded Patient Health Questionnaire-2 Score 0 10/27/2024 [facility] - Occupational Stress Questionnaire Answer Date [...] place to sleep or slept in a mcfp (including now)? No 06/17/2023 Housing Stability Vital Sign Answer Lenin e Recorded In the last 12 months, was t here a time when you were not able to pay the mortgage or rent on time? No 07/29/2024 Number of Times Moved in the Last Year Not on fi le 07/29/2024 At any time in the past 12 m [facility], were you homeless or living in a mcfp (including now)? No 07/29/2024 Comments Unknown Sex [...] 01/26/2025 1:20 PM EDT Office Visit [facility] [address] [place] [address] Elsa Miramontes, MONIQUE [address] [place] [phone] 10/28/2025 11:00 AM EDT Office Visit [facility] [address] [place] [address] Elsa Miramontes NP [address] [place] [phone] Health Maintenance Due Date Last Done Comments Pneumococcal Vaccine: 65+ Ye ars (1 of 2 - PCV) 1964 Diabetes: Hemoglobin A1C 11/02/2024 025, 10/17/2023, 06/20/2023, Additional history exists Influenza Vaccine (#1) 2025 Diabetes: Urine Protein Screening 08/04/2025 025, 06/20/2023 Medicare Annual Wellness (AWV) 10/27/2025 0 10/27/2024, 10/27/2024, 09/24/2023, Additional history exists Diabetes: Retinopathy Screening 05/29/2026 05/29/2024, 12/27/2023, 03/08/2023, Additional history exists Procedures Procedure Name Priority Date/Time Associated Diagnosis Comments MM TOMOSYNTHESIS SCREENING BI 11/26/2024 2:49 PM EDT DIABETIC RETINOPATHY SCREENING - OU - BOTH EYES Routine 05/29/2024 10:51 AM EST from Last 3 Months or Most Recently Relevant to Health Maintenance Results * MM TOMOSYNTHESIS SCREENING BI (11/26/2024 2:49 PM EDT) Anatomical Region Laterality Modality Other 11/26/2024 2:49 PM EDT Narrative 11/26/2024 2:50 [place] [address] Mammography Report Signed Patient: EILEEN CALDERA MR#: [id number] : 1945 Acct:[id number] Age/Sex: 79 / F ADM Date: 11/26/24 Loc: MAMMO Attending Dr: Elsa Miramontes NP Ordering Physician: Elsa Miramontes NP Results: Date of Service: 11/26/24 Follow Up: Procedure(s): MM tomosynthesis screening BI Accession Number(s): [id number] cc: Elsa Miramontes NP Patient Name: EILEEN CALDERA MR#: [id number] : 1945 Exam Date: 11/26/2024 Ordering Doctor: AMADEO MIRAMONTES CNP RADIOLOGY REPORT PROCEDURE: MM TOMOSYNTHESIS SCREENING BI COMPARISON: MM TOMOSYNTHESIS SCREENING BI, 07/10/2023. MG MAMM SCREEN 3D MIRTA CAD, 05/04/2022. MG MAMM SCREEN MIRTA W CAD, 04/11/2020. MG MAMM MIRTA SCRN W CAD DIG, 04/28/2013. INDICATIONS: Screening Calculator Name NCI Breast Cancer Risk Assessment Tool 5 Year Breast Cancer Risk 2.40% Lifetime Breast Cancer Risk 4.30% Personal Breast Cancer No Personal Ovarian Cancer No Treatments None Family Cancers None LOCATION: [facility] BREAST COMPOSITION: There are scattered areas of fibroglandular density. FINDINGS: RIGHT BREAST: No significant suspicious finding. Similar focal asymmetries are present. Benign-appearing calcifications are present. Benign-appearing lymph nodes are noted along the chest wall. LEFT BREAST: No significant suspicious finding. Benign-appearing lymph nodes are noted along the chest wall. Similar focal asymmetries are present. DIAGNOSTIC CATEGORY 2--BENIGN FINDING. NO CHANGE FROM COMPARISON. RECOMMENDATIONS: ROUTINE MAMMOGRAM AND CLINICAL EVALUATION IN 12 MONTHS. PLEASE NOTE: A NORMAL MAMMOGRAM DOES NOT EXCLUDE THE POSSIBILITY OF BREAST CANCER. A CLINICALLY SUSPICIOUS PALPABLE LUMP SHOULD BE BIOPSIED. Dictated by: Sean Perez MD on 11/26/2024 at 14:43 Approved by: Sean Perez MD on 11/26/2024 at 14:49 Dictated By: Sean Perez M.D. Signed By: 11/26/24 1450 DD/ 1449 TD/TT: Software Developer Manager: Procedure Note Radiology, Radiologist, - 11/26/2024 [place] [address] Mammography Report Signed Patient: EILEEN CALDERA MMR#: [id number] : 1945cct:[id number] Age/Sex: 79 / FADM Date: 11/26/24 Loc: MAMMO Attending Dr: Elsa Miramontes NP Ordering Physician: Elsa Miramontes NPResults: Date of Service: 11/26/24Follow Up: Procedure(s): MM tomosynthesis screening BI Accession Number(s): [id number] cc: Elsa Miramontes NP Patient Name: EILEEN CALDERA MR#: [id number] : 1945 Exam Date: 11/26/2024 Ordering Doctor: AMADEO MIRAMONTES CONTACT WORKER LITHOGRAPHY RADIOLOGY REPORT PROCEDURE: MM TOMOSYNTHESIS SCREENING BI COMPARISON: MM TOMOSYNTHESIS SCREENING BI, 07/10/2023. MG MAMM [id number] MIRTA CAD, 05/04/2022. MG MAMM SCREEN MIRTA W CAD, 04/11/2020. MG MAMM BILSCRN W CAD DIG, 04/28/2013. INDICATIONS: Screening Calculator Name NCI Breast Cancer Risk Assessment Tool 5 Year Breast Cancer Risk 2.40% Lifetime Breast Cancer Risk 4.30% Personal Breast Cancer No Personal Ovarian Cancer No Treatments None Family Cancers None LOCATION: [facility] BREAST COMPOSITION: There are scattered areas of fibroglandulardensity. FINDINGS: RIGHT BREAST: No significant suspicious finding. Similar focalasymmetries are present. Benign-appearing calcifications are present.Benign-appearing lymph nodes are noted along the chest wall. LEFT BREAST: No significant suspicious finding. Benign-appearing lymphnodes are noted along the chest wall. Similar focal asymmetries are present. DIAGNOSTIC CATEGORY 2--BENIGN FINDING. NO CHANGE FROM COMPARISON. RECOMMENDATIONS: ROUTINE MAMMOGRAM AND CLINICAL EVALUATION IN 12 MONTHS. PLEASE NOTE: A NORMAL MAMMOGRAM DOES NOT EXCLUDE THE POSSIBILITY OFBREAST CANCER. A CLINICALLY SUSPICIOUS PALPABLE LUMP SHOULD BE BIOPSIED. Dictated by: Sean Perez MD on 11/26/2024 at 14:43 Approved by: Sean Perez MD on 11/26/2024 at 14:49 Dictated By: Sean Perez M.D. Signed By:11/26/24 1450 DD/ 1449 TD/TT: Software Developer Manager: Elsa Miramontes NP [facility] Final Result * Diabetic Retinopathy Screening - OU - Both Eyes (05/29/2024 10:51 AM EST) Anatomical Region Laterality Modality Head Other Carin Brown NP OPHTH PHOTOGRAPHY Final Result from Last 3 Months or Most Recently Relevant to Health Maintenance Insurance [employer] Care Teams Bar Pilot Relationship Specialty Start Date End Date Jhonny Rai MD [address] [place] [phone] PCP - General Family Medicine 02/13/24 Carin Brown NP [address] [place] [phone] Nurse Practitioner Family Medicine 02/13/24
[2025-01-22 14:18] LABS: Thyroid Stimulating Hormone 1.596 uIU/mL (0.358-3.740)
== END 2025-01-22 12:44 | disposition home or self-care (01) ==
LOC: LAB 12:47
PROVIDERS: PCP Nurse Practitioner; Visit Provider Nurse Practitioner
DX: E03.8 Other specified hypothyroidism (principal); E11.69 Type 2 diabetes mellitus with other specified complication; Z79.4 Long term (current) use of insulin
CPT/HCPCS: 36415; 83036; 84439; 84443

== ENCOUNTER 2025-01-22 12:51 | Outpatient (OUT) | payer MEDICARE, OTHER, SELFPAY ==
[2025-01-22 13:43] LABS: Hematocrit 41.1 % (36.0-48.0); Hemoglobin 13.2 g/dL (12.0-16.0); Mean Corpuscular HGB Conc 32.1 g/dL (29.9-35.2); Mean Corpuscular Hemoglobin 28.3 pg (26.7-34.0); Mean Corpuscular Volume 88.0 fL (81.0-99.0); Platelet Count 265 10^3/uL (150-450); Red Blood Count 4.67 10^6/uL (4.20-5.40); White Blood Count 9.6 10^3/uL (4.0-11.0)
[2025-01-22 13:52] LABS: Protein Creatinine Ratio Urine 0.40; Total Protein Urine Random 10.6 mg/dL (<=11.9)
[2025-01-22 14:06] LABS: Albumin Level 3.6 g/dL (3.4-5.0); Anion Gap 10.4; Blood Urea Nitrogen 27.0 mg/dL (7.0-18.0); Calcium 10.1 mg/dL (8.5-10.1); Carbon Dioxide 33.5 mmol/L (21.0-32.0); Chloride 100 mmol/L (98-107); Estimated GFR (African America 45 (>=60 mL/min/1.73m^2); Estimated GFR (Non-African Ame 37 (>=60 mL/min/1.73m^2); Glucose 211 mg/dL (74-106); Magnesium 1.8 mg/dL (1.8-2.4); Potassium 3.9 mmol/L (3.5-5.1); Sodium 140 mmol/L (136-145); Uric Acid 6.9 mg/dL (2.6-6.0)
[2025-01-22 14:29] LABS: Glucose Urine UA NEGATIVE (NEGATIVE)
[2025-01-22 14:50] LABS: Cast Seen? NONE SEEN #/LPF (NONE SEEN); Crystals Seen? None Seen #/HPF (None Seen)
== END 2025-01-22 12:52 | disposition home or self-care (01) ==
LOC: LAB 12:53
PROVIDERS: PCP Nurse Practitioner; Visit Provider Internal Medicine
DX: K76.9 Liver disease, unspecified (principal); N18.30 Chronic kidney disease, stage 3 unspecified; E83.52 Hypercalcemia; I12.9 Hypertensive chronic kidney disease with stage 1 through stage 4 chronic kidney disease, or unspecified chronic kidney disease; E11.22 Type 2 diabetes mellitus with diabetic chronic kidney disease; E11.69 Type 2 diabetes mellitus with other specified complication; Z79.4 Long term (current) use of insulin; E03.8 Other specified hypothyroidism
CPT/HCPCS: 36415; 80069; 81001; 82306; 82570; 83036; 83735; 83970; 84156; 84439; 84443; 84550; 85027

== ENCOUNTER 2025-06-23 07:51 | Outpatient (OUT) | payer MEDICARE, OTHER, SELFPAY ==
--- OUTSIDE RECORDS SUMMARY | 2025-06-23 07:56 | XMS_ITS | Clinical Summary ---
Author Organization [facility] Address [address] [place] [address], [address] [place] [address] Care Team Providers Care [employer] Targeting Supervisor Name Role Phone Rafael Rojas Primary Care Provider Unavailabl e Social History Tobacco UseTypesPacks/DayYears UsedDateSmoking Tobacco: Never Assessed CommentsUnknownSex and Gender InformationValueDate RecordedSex Assigned at Not on fileLegal QosAvcegz66/20/2015 6:37 AM EDTGender IdentityNot on fileSexual OrientationNot on file Plan of Treatment Not on file Care Teams Team MemberRelationshipSpecialtyStart DateEnd Date Rafael Rojas PCP - Wqozque54/20/15
--- OUTSIDE RECORDS SUMMARY | 2025-06-23 07:56 | XMS_ITS | Clinical Summary ---
Author Organization [facility] Address [address] [place] [address] Care Team Providers Care Piece Dyer Name Role Phone Jhonny Rai MD Primary Care Provider [phone] Carin Brown GROCERY CLERK SELLING Unavailable [phone] Allergies Active AllergyReactionsCriticalityNoted DateComments Sulfamethoxazole-TrimethoprimRash,GI hdmulmmgbmnSoy55/11/2023 Medications MedicationSigDispense QuantityRefillsLast FilledStart DateEnd DateStatus insulin syringe-needle U-100 ([facility] Insulin Syringe) 30G X 1/2 1 ML misc 1 each every 12 (twelve) hoursActive Glucose Blood (BLOOD GLUCOSE TEST ) Active Alcohol Swabs (Alcohol Prep) 70 % pads Active pen needle 30G x 5 mm misc Inject 1 each under the skin in the morning and 1 each at noon and 1 each in the evening and 1 eachbefore bedtime. Use as instructed.Active allopurinol (Zyloprim) 100 MG tablet Take 100 mg by mouth in the morning.Active insulin lispro (HumaLOG KWIKPEN) 100 UNIT/ML injection Indications:Type 2 diabetes mellitus with stage 3a chronic kidney disease, with long-term current use of insulin (HCC)INJECT 12 UNITS WITH BREAKFAST, LUNCH, AND 8 UNITS WITH DINNER. FOR FSBS 150-200 6 UNITS, 201-250 8UNITS, 251-300 10 UNITS MAX 50 UNITS/DAY 48 mL 4Active Lantus SoloStar 100 UNIT/ML pen Indications:Type 2 diabetes mellitus with stage 3a chronic kidney disease, with long-term current use of insulin (HCC)INJECT SUBCUTANEOUSLY 70 UNITS AT BEDTIME 75 mL 5Active carvedilol (Coreg) 12.5 MG tablet Take 12.5 mg by mouth in the morning and 12.5 mg in the evening. Take with meals.5Active amLODIPine (Norvasc) 5 MG tablet Indications:Primary hypertensionTake 1 tablet (5 mg) by mouth Daily 90 tablet 5Active aspirin 81 MG EC tablet Take 81 mg by mouth DailyActive alendronate (Fosamax) 35 MG tablet Indications:Osteoporosis without current pathological fracture, unspecified osteoporosis typeTake 1 tablet (35 mg) by mouth every 7 (seven) days Take in the morning with a full glass of water,on an empty stomach, and do not take anything else by mouth or lie down for the next 30 min. 12 tablet 5Active levothyroxine (Synthroid) 88 MCG tablet Indications:Other specified hypothyroidismTake 1 tablet (88 mcg) by mouth in the morning. Take before meals. 90 tablet 5Active semaglutide (Ozempic, 1 MG/DOSE,) 4 MG/3ML solution pen-injector Indications:Type 2 diabetes mellitus with stage 3a chronic kidney disease, with long-term current use of insulin ([facility])Inject 1 mg under the skin 1 (one) time per week INJECT 1 MG SUBCUTANEOUSLY ONCE WEEKLY 9 mL 5Active furosemide (Lasix) 40 MG tablet Indications:Primary hypertension,Stage 3a chronic kidney disease ([facility])Take 1 tablet (40 mg) by mouth Daily 90 tablet 5Active glipiZIDE (Glucotrol) 10 MG tablet Indications:Type 2 diabetes mellitus with stage 3a chronic kidney disease, with long-term current use of insulin ([facility])Take 1 tablet (10 mg) by mouth Daily 90 tablet 5Active losartan (Cozaar) 100 MG tablet Indications:Primary hypertensionTake 1 tablet (100 mg) by mouth Daily TAKE 1 TABLET BY MOUTH DAILY 90 tablet 5Active metFORMIN (Glucophage) 500 MG tablet Indications:Type 2 diabetes mellitus with stage 3a chronic kidney disease, with long-term current use of insulin ([facility])Take 1 tablet (500 mg) by mouth every 12 (twelve) hours 180 tablet 5Active atorvastatin (Lipitor) 20 MG tablet Indications:Hyperlipidemia, unspecified hyperlipidemia typeTake 1 tablet (20 mg) by mouth Daily 90 tablet 5Active Active Problems ProblemNoted DateDiagnosed DateMorbid (severe) obesity due to excess calories 10/27/2024 Assessment & Plan (01/26/2025 12:52 PM EDT): Discussed with patient their BMI (actual, verses recommended). We have also discussed lifestyle modifications: attempts to perform physical activity as chronic conditions allow, also to monitor dietary intake: increasing protein/fruits/veggies and lowering carb intake (unless contraindicated). Limit sodas, juices, and sugary drinks. Assessment & Plan (10/27/2024 6:34 AM EDT): Discussed with patient their BMI (actual, verses recommended). We have also discussed lifestyle modifications: attempts to perform physical activity as chronic conditions allow, also to monitor dietary intake: increasing protein/fruits/veggies and lowering carb intake (unless contraindicated). Limit sodas, juices, and sugary drinks. Type 2 diabetes mellitus, with long-term current use of eetdrkr4710/27/2024 Assessment & Plan (01/26/2025 12:52 PM EDT): Check blood sugars daily, notify if [...] meds: statin, insulin, arb, metformin, ozempic A1c: 7.1% on 01/22/25, 7% on 08/04/24 Consider SGLT 2 will check with her insurance and let me know Assessment & Plan (10/27/2024 6:38 AM EDT): [...] metformin, ozempic A1c: 7% on 08/04/24 Mixed cribngadrpxtkr94/22/2025 Assessment & Plan (10/27/2024 6:37 AM EDT): Is on statin therapy Check labs yearly and prn dose changes CKD stage 3b, GFR 30-44 ml/min04/09/2024 Overview (09/07/2024): Per nephrology: stop metformin inf GFR is less than 30 May also use pepcid and or omeprazole instead of TUMS d/t elevated calcium Assessment & Plan (01/26/2025 12:51 PM EDT): Limit nephrotoxic drugs if possible, continue with Nephrology Control DM and HTN Consider jardiance or farxiga Assessment & Plan (10/27/2024 6:34 AM EDT): [...] eGFR 32; Body mass index (BMI) 40.0-44.9, adult04/09/2024 Assessment & Plan (04/09/2024 11:53 AM EDT): [...] for weight loss. Medicare annual wellness visit, icikjvnbgu93/19/2024 Assessment & Plan (10/27/2024 6:40 AM EDT): [...] questions and concerns addressed and answered. Primary zvrrphpctujq43/12/2023 Assessment & Plan (01/26/2025 12:51 PM EDT): Please check blood pressure daily and record DASH diet Limit caffeine Take medication as directed Contact office if chest pain, pressure, dizziness, shortness of breath, swelling legs Recommend slow position changes Current meds: amlodipine, losartan, b abdoulaye Assessment & Plan (10/27/2024 6:38 AM EDT): [...] persistently elevated BP. C/w Losartan Other specified aiorlbhtpzlrrv42/12/2023 Assessment & Plan (01/26/2025 12:52 PM EDT): On levothyroxine Check labs yearly and prn dose changes or changes in sxs Assessment & Plan (10/27/2024 6:35 AM EDT): On levothyroxine Check labs yearly and prn dose changes or changes in sxs Assessment & Plan (12/17/2023 1:27 PM EDT): On levothyroxine. TSH at goal Assessment & Plan (09/24/2023 10:31 AM EDT): Check TSH. On levothyroxine. Assessment & Plan (06/18/2023 11:34 AM EST): Check TSH. On levothyroxine. Screening mammogram, encounter for06/18/2023 Assessment & Plan (06/18/2023 11:34 AM EST): Ordered mammogram Resolved Problems ProblemNoted DateDiagnosed DateResolved DatePoorly-controlled hypertension /Type 2 diabetes mellitus with stage 3a chronic kidney disease, with long-term current use of uovsied37/ Overview (09/07/2024): Per nephrology on 09/01 stop [...] home glucose monitoring noted. DM Eye Exam: [facility] 2023 Assessment & Plan (04/09/2024 11:02 [...] interested at this time. DM Eye Exam: [facility] 2023 No medication adverse effects reported [...] 8 units at night. She is on 1mg ozempic. Check A1C before next appt. Assessment [...] noted. Check labs. No changes made. Other vrshxgvtvbkkoe80/12/202304/ Assessment & Plan (08/12/2024 2:55 PM EST): [...] Check lipid panel Stage 3a chronic kidney oworjmk25/ Assessment & Plan (12/17/2023 1:24 PM EDT): Stable. Due to T2 DM Avoid NSAIDS. On Losartan, lasix for volume control. Assessment & Plan (09/24/2023 10:29 AM EDT): Stable. Due to T2 DM Avoid NSAIDS. On Losartan. Assessment & Plan (06/18/2023 11:33 AM EST): Stable. Due to T2 DM Avoid NSAIDS. On Losartan. Family History Medical HistoryRelationNameCommentsDiabetesBrotherDiabetesFatherAsthmaMother Heart diseaseMotherRelationNameStatusCommentsBrotherFatherDeceasedMotherDeceased Social History Tobacco UseTypesPacks/DayYears UsedDateSmoking Tobacco: NeverPassive Smoke Exposure: NeverSmokeless Tobacco: Never Tobacco Cessation:Counseling Given: Not Answered Alcohol UseStandard Drinks/WeekCommentsNever0 (1 standard drink = 0.6 oz pure alcohol)B1300 Health LiteracyAnswerDate RecordedHow often do you need to have someone help you when you read instructions, pamphlets, or other written material from your doctor or pharmacy?Never07/29/2024Humiliation, Afraid, Rape, and Kick questionnaireAnswerDate RecordedWithin the last year, have you been afraid of your partner or ex-partner?Patient /11/2023Within the last year, have you been humiliated or emotionally abused in other ways by your partner or ex-partner?Patient /11/2023Within the last year, have you been kicked, hit, slapped, or otherwise physically hurt by your partner or ex-partner?Patient dumwmeod18/11/2023Within the last year, have you been raped or forced to have any kind of sexual activity by your partner or ex-partner? Patient ssototaw40/11/2023Social Connection and Isolation PanelAnswerDate RecordedIn a typical week, how many times do you talk on the phone with family, friends, or neighbors?More than three times a week07/29/2024How often do you get together with friends or relatives?Twice a week07/29/2024How often do you attend episcopal or adventism services?Patient fdethcjh66/22/2025Do you belong to any clubs or organizations such as episcopal groups, unions, fraternal or athletic marisa ups, or school groups?Yes07/29/2024How often do you attend meetings of the clubs or organizations you belong to?More than 4 times per year07/29/2024re you , , , , never , or living with a partner? Umbzlsb3607/29/2024UDIT-CAnswerDate RecordedQ1: How often do you have a drink containing alcohol?Never07/29/2024Q2: How many drinks containing alcohol do you have on a typical day when you are drinking?Patient does not drink07/29/2024Q3: How often do you have six or more drinks on one occasion?Never07/29/2024Overall Financial Resource Strain (CARDIA)AnswerDate RecordedHow hard is it for you to pay for the very basics like food, housing, medical care, and heating?Not hard at all07/29/2024PHQ-2AnswerDate RecordedPatient Health Questionnaire-2 Score0 10/27/2024[facility] Occupational Health - Occupational Stress QuestionnaireAnswerDate RecordedDo you feel stress - tense, restless, nervous, or anxious, or unable to sleep at night because yourmind is troubled all the time - these days?Not at all07/29/2024Exercise Vital SignAnswerDate RecordedOn average, how many days per week do you engage in moderate to strenuous exercise (like a brisk walk)?1 day07/29/2024On average, how many minutes do you engage in exercise at this level?20 min07/29/2024Hunger Vital SignAnswerDate Recorded Within the past 12 months, you worried that your food would run out before you got the money to buymore.Never true07/29/2024Within the past 12 months, the food you bought just didn't last and you didn't have money to get more.Never true 07/29/2024PRAPARE - TransportationAnswerDate RecordedIn the past 12 months, has lack of transportation kept you from medical appointments or from getting medications?No07/29/2024In the past 12 months, has lack of transportation kept you from meetings, work, or from getting things needed for daily living?No 07/29/2024Housing Stability Vital SignAnswerDate RecordedIn the last 12 months, was there a time when you were not able to pay the mortgage or rent on time?No 06/17/2023In the last 12 months, how many places have you lived?In the last 12 months, was there a time when you did not have a steady place to sleep or slept in ashelter (including now)?No06/17/2023Housing Stability Vital SignAnswerDate RecordedIn the last 12 months, was there a time when you were not able to pay the mortgage or rent on time?No07/29/2024Number of Times Moved in the Last YearNot on file07/29/2024t any time in the past 12 months, were you homeless or living in a detention (including now)?No07/29/2024Comments UnknownSex and Gender InformationValueDate RecordedSex Assigned at BirthNot on fileLegal FbeQmybzh87/28/2023 1:21 PM EDTGender IdentityNot on fileSexual OrientationNot on file Last Filed Vital Signs Vital SignReadingTime TakenCommentsBlood Cofgdrsl937/8207 12:49 PM EDT Ksbge335501/26/2025 11:26 AM TTSQkbetzszkuy32.6 ??C (97.8 ??F)01/26/2025 11:26 AM EDTRespiratory Inws528601/26/2025 11:26 AM EDTOxygen Wuwjpuxuxe25%01/26/2025 11:26 AM EDTInhaled Oxygen Concentration--Wqnddj276 kg (248 lb)01/26/2025 11:26 AM EDT Xpfbrk074.1 cm (5' 5 )08/12/2024 2:27 PM ESTBody Mass Index41.2702/11/2024 2:27 PM EST Plan of Treatment Health MaintenanceDue DateLast DoneCommentsPneumococcal Vaccine: 65+ Years (1 of 1 - PCV)1996COVID-19 Vaccine (6 - 2024- season)511/11/2021, 11/14/2021, 05/03/2021, Additional history existsInfluenza Vaccine (#1) 03/08/2025 Insurance Care Teams Team MemberRelationshipSpecialtyStart DateEnd Date Jhonny Rai MD PCP - GeneralFamily Medicine02/13/24 Carin Brown NP Nurse PractitionerFamily Medicine02/13/24
[2025-06-23 09:29] LABS: Alanine Aminotransferase 27 U/L (14-59); Albumin Globulin Ratio 0.8; Albumin Level 3.1 g/dL (3.4-5.0); Alkaline Phosphatase 113 U/L (46-116); Anion Gap 12.7; Aspartate Amino Transferase 12 U/L (15-37); Blood Urea Nitrogen 18.0 mg/dL (7.0-18.0); Calcium 9.7 mg/dL (8.5-10.1); Carbon Dioxide 30.3 mmol/L (21.0-32.0); Chloride 105 mmol/L (98-107); Cholesterol 154 mg/dL (<=200); Estimated GFR (African America 46 (>=60 mL/min/1.73m^2); Estimated GFR (Non-African Ame 38 (>=60 mL/min/1.73m^2); Globulin 4.0 g/dL; Glucose 86 mg/dL (74-106); HDL Cholesterol 43 mg/dL (40-60); Potassium 4.0 mmol/L (3.5-5.1); Sodium 144 mmol/L (136-145); Thyroid Stimulating Hormone 4.571 uIU/mL (0.358-3.740); Total Protein 7.1 g/dL (6.4-8.2); Triglycerides 124 mg/dL (<=150); VLDL CHOLESTEROL 24.8 mg/dL
== END 2025-06-23 07:52 | disposition home or self-care (01) ==
LOC: LAB 07:54
PROVIDERS: PCP Nurse Practitioner; Visit Provider Family Medicine
DX: E03.9 Hypothyroidism, unspecified (principal); E78.5 Hyperlipidemia, unspecified; E11.22 Type 2 diabetes mellitus with diabetic chronic kidney disease
CPT/HCPCS: 36415; 80053; 80061; 84439; 84443